=== PATIENT | male | born 1955 | race Caucasian/White ===

== ENCOUNTER 2016-09-20 14:13 | Outpatient (POV) | payer BC, SELFPAY | END 2017-06-07 15:44 | disposition home or self-care (01) | PROVIDERS: Family Provider Internal Medicine Adolescent Medicine; PCP Internal Medicine Adolescent Medicine; Referring Provider Internal Medicine Adolescent Medicine; Visit Provider Nurse Anesthetist, Certified Registered | DX: B02.23 Postherpetic polyneuropathy (principal) | CPT/HCPCS: 99201 ==

== ENCOUNTER → 2018-01-23 14:35 | Outpatient (POV) | payer BC, SELFPAY ==
[2018-01-23 15:01] VITALS: BP 129/78; PULSE 94; RESP 18; O2SAT 98
--- NOTE | 2018-01-24 08:42 | HMH.PMCON ---
Assessment and Plan (1) Degenerative disc disease Current visit: Yes Status: Chronic Category: Medical (2) Lumbar radiculopathy Current visit: Yes Status: Chronic Category: Medical Code(s): M54.16 - Radiculopathy, lumbar region - Assessment and plan all Dx Assessment and Plan for all problems:: We will schedule an L4-L5 lumbar epidural steroid injection. I am hopeful that this will help give him some relief in his symptomology. Patient would like to not undergo surgery at this time. Patient's tried and failed multiple conservative measures of treatment such as physical therapy, massage therapy, medications, anti-inflammatories, chiropractic therapy. Patient is continuing to do home stretching program home. I will follow-up with this patient after his injection. Patient is not on any anticoagulation therapy. This note was dictated using voice recognition software and may contain errors or omissions HPI - Data of Consult Consult date: 01/24/18 Requesting Physician: Latha Neil APRN Primary Care Provider: Gabino Marin MD Family Provider: Gabino Marin MD - Consult Narrative Reason for consult: Back pain, right leg pain History of present illness: Mr. Baez is a 62 year old male who presents today for consultation in regards to his low back and right hip and leg pain. Patient does have an MRI showing spondylosis, degenerative disc disease, bulging disks, ligamentum flavum hypertrophy patient does have neural impingement. Patient states most of his pain is in his low back and right hip and leg. Patient states standing and sitting increases pain while rest and heat decreases his pain. Patient has been seen by Dr. Hermosillo in the past. Patient has not tried injections. Patient's doing chiropractic therapy, physical therapy, massage therapy with little to no relief. Patient is interested in injective therapy at this time. Patient's tried and failed medications and anti-inflammatories. He rates his pain a 6 out of 10 today. CC: Latha Neil APRN [facility] History I have reviewed the patient's past medical history: Yes Medical History: Reports:: Diabetes Mellitus Type 2, Hyperlipidemia Other Medical History: Reports: Arthritis Other Surgeries: Yes: Cardiac Catheterization, Coronary Stent - *Social History Smoking Status: Never smoker Alcohol Intake: never Occupational Status: employed Housing: house - Psychiatric History Expresses thoughts of harming self/others: None Suicide Plan Description: No Plan Review of Systems - Review of Systems ROS General: no recent weight change, no fever, no sleep disturbances Respiratory: no cough, no shortness of air, no recurring pulmonary infections Cardiovascular/Peripheral Vascular: No chest pain, No palpitations, no edema, no shortness of breath. Gastrointestinal: no incontinence, normal bowel movements reported Genitourinary: no incontinence Musculoskeletal: Back pain, right hip pain, right leg pain Psychiatric: normal mood/ affect Neurological: [denies weakness in extremities], [denies balance issues] Meds Allergies Allergy/AdvReac Type Severity Reaction Status Date / Time No Known Allergies Allergy Unverified 07/12/17 14:28 Objective Vital signs: Pulse Resp BP Pulse Ox 94 H 18 129/78 98 01/23/18 15:01 01/23/18 15:01 01/23/18 15:01 01/23/18 15:01 Narrative: Physical Exam General: Alert and oriented x3, no acute distress, pleasant and cooperative, [on room air] Lungs: Resps E/U, Symmetrical chest expansion, Eyes: PERRL Musculoskeletal: Flexion and extension of lumbar spine somewhat guarded secondary to pain, deep tendon reflexes normal, strength in upper and lower extremities [5/5], antalgic gait noted, positive straight leg raise test at 30? on the right side Neurological: speech clear, videotape operator equal, no gross sensory deficits Opioid Risk Tool - Opioid Risk Tool-Male Fa
--- NOTE | 2018-01-24 08:54 | P.CONS_ITS ---
Assessment and Plan (1) Degenerative disc disease Current visit: Yes Status: Chronic Category: Medical (2) Lumbar radiculopathy Current visit: Yes Status: Chronic Category: Medical Code(s): M54.16 - Radiculopathy, lumbar region - Assessment and plan all Dx Assessment and Plan for all problems:: We will schedule an L4-L5 lumbar epidural steroid injection. I am hopeful that this will help give him some relief in his symptomology. Patient would like to not undergo surgery at this time. Patient's tried and failed multiple conservative measures of treatment such as physical therapy, massage therapy, medications, anti-inflammatories, chiropractic therapy. Patient is continuing to do home stretching program home. I will follow-up with this patient after his injection. Patient is not on any anticoagulation therapy. This note was dictated using voice recognition software and may contain errors or omissions HPI - Data of Consult Consult date: 01/24/18 Requesting Physician: Latha Neil APRN Primary Care Provider: Gabino Marin MD Family Provider: Gabino Marin MD - Consult Narrative Reason for consult: Back pain, right leg pain History of present illness: Mr. Baez is a 62 year old male who presents today for consultation in regards to his low back and right hip and leg pain. Patient does have an MRI showing spondylosis, degenerative disc disease, bulging disks, ligamentum flavum hypertrophy patient does have neural impingement. Patient states most of his pain is in his low back and right hip and leg. Patient states standing and sitting increases pain while rest and heat decreases his pain. Patient has been seen by Dr. Hermosillo in the past. Patient has not tried injections. Patient' s doing chiropractic therapy, physical therapy, massage therapy with little to no relief. Patient is interested in injective therapy at this time. Patient's tried and failed medications and anti-inflammatories. He rates his pain a 6 out of 10 today. CC: Latha Neil APRN [facility] History I have reviewed the patient's past medical history: Yes Medical History: Reports:: Diabetes Mellitus Type 2, Hyperlipidemia Other Medical History: Reports: Arthritis Other Surgeries: Yes: Cardiac Catheterization, Coronary Stent - *Social History Smoking Status: Never smoker Alcohol Intake: never Occupational Status: employed Housing: house - Psychiatric History Expresses thoughts of harming self/others: None Suicide Plan Description: No Plan Review of Systems - Review of Systems ROS General: no recent weight change, no fever, no sleep disturbances Respiratory: no cough, no shortness of air, no recurring pulmonary infections Cardiovascular/Peripheral Vascular: No chest pain, No palpitations, no edema, no shortness of breath. Gastrointestinal: no incontinence, normal bowel movements reported Genitourinary: no incontinence Musculoskeletal: Back pain, right hip pain, right leg pain Psychiatric: normal mood/ affect Neurological: [denies weakness in extremities], [denies balance issues] Meds Allergies Allergy/AdvReac Type Severity Reaction Status Date / Time No Known Allergies Allergy Unverified 07/12/17 14:28 Objective Vital signs: Pulse Resp BP Pulse Ox 94 H 18 129/78 98 01/23/18 15:01 01/23/18 15:01 01/23/18 15:01 01/23/18 15:01 Narrative: Physical Exam General: A
== END ==
PROVIDERS: Family Provider Internal Medicine Adolescent Medicine; PCP Internal Medicine Adolescent Medicine; Visit Provider Clinical Nurse Specialist Family Health
DX: M54.16 Radiculopathy, lumbar region (principal)
CPT/HCPCS: 99202

== ENCOUNTER 2020-04-19 19:06 | Emergency (ER) | payer BC, SELFPAY ==
[2020-04-19 19:08] VITALS: BP 159/91; PULSE 99; RESP 16; TEMP 36.8; O2SAT 98; BMI 24.3
--- NOTE | 2020-04-19 19:17 | HMH.EDGENADL ---
ED Disposition Clinical Impression: Palpitations, Tachycardia Disposition: Home, Self-Care Condition on Discharge: Good Instructions: Cardiac Arrhythmia (Alternative Therapy) Additional Instructions: Follow-up with your drill hand. If you have any new, changing, worsening, or concerning symptoms, come back to the emergency department. Referrals: Gabino Marin MD [Primary Care Provider] - Time of Disposition: 20:27 - Critical Care Critical Care Time: No Attestation: On 04/19/20, the high probability of a clinically significant, sudden or life threatening deterioration of the following system(s) required my full and direct attention, intervention and personal management. The time I documented below is in addition to time spent performing reported procedures but includes the following listed in this critical care notation. Medical Decision Making - Medical Records Medical records reviewed: Yes: I reviewed the patient's medical records. MR Comment: 64-year-old male with history of hypertension and prior cardiac stent presents the emergency department with concern for palpitations. He arrives the ED hemodynamically stable, with reassuring vital signs, and looks well on exam will get labs including EKG, treat with fluid bolus and reassess. On reassessment, patient remains well. Asymptomatic after fluid bolus. ECG without concerning features and given patient asymptomatic, will discharge. Given strict return precautions and discharge instrucitons and he verbalizes and agrees to the plan. - [place] Inquiry Pt receiving controlled substance: No Vital Signs: 04/19/20 19:08 04/19/20 19:30 04/19/20 20:11 Temperature 98.3 F Temperature Source Oral Pulse Rate Pulse Rate [Right] 99 H 95 H 91 H Respiratory Rate 16 18 18 Blood Pressure Blood Pressure [Right Arm] 159/91 H 132/87 131/78 Blood Pressure Mean [Right Arm] 113 102 95 Blood Pressure Source Blood Pressure Source [Right Arm] Automatic Cuff Blood Pressure Position Blood Pressure Position [Right Arm] Sitting 02 Sat by Pulse Oximetry 98 96 95 Oxygen Delivery Method Room Air Room Air Room Air 04/19/20 20:37 04/19/20 20:44 Temperature 98.0 F Temperature Source Oral Pulse Rate 89 Pulse Rate [Right] 87 Respiratory Rate 18 14 Blood Pressure 148/89 H Blood Pressure [Right Arm] 148/84 H Blood Pressure Mean [Right Arm] 105 Blood Pressure Source Automatic Cuff Blood Pressure Source [Right Arm] Blood Pressure Position Sitting Blood Pressure Position [Right Arm] 02 Sat by Pulse Oximetry 97 Oxygen Delivery Method Room Air Room Air - Lab Data Lab Results 04/19/20 19:20: WBC 10.4, RBC 5.13, Hgb 15.4, Hct 44.6, MCV 86.9, MCH 30.1, MCHC 34.6, RDW 14.0, Plt Count 518 H, MPV 7.0 L, Neut % (Auto) 67.8, Lymph % (Auto) 24.1, Wilkes % (Auto) 5.9, Eos % (Auto) 1.6, Baso % (Auto) 0.6, Neut # (Auto) 7.0, Lymph # (Auto) 2.5, Wilkes # (Auto) 0.6, Eos # (Auto) 0.2, Baso # (Auto) 0.1 04/19/20 19:20: Sodium 141, Potassium 3.7, Chloride 103, Carbon Dioxide 27, Anion Gap 14.7, BUN 13, Creatinine 1.00, Estimated Creat Clear 86, Estimated GFR 76, Est GFR ( Amer) 92, Glucose 184 H, Calcium 10.2, Total Bilirubin 0.9, AST 32, ALT 25, Alkaline Phosphatase 61, Troponin I < 0.01, Total Protein 7.7, Albumin 4.9, Globulin 2.8, Albumin/Globulin Ratio 1.8 Result diagrams: 04/19/20 19:20 04/19/20 19:20 Orders (Tests/Meds): ED MEDICATIONS Discontinued Medications Generic Name Dose Route Start Last Admin Trade Name Freq PRN Reason Stop Dose Admin Sodium Chloride 1,000 mls @ 999 mls/hr 04/19/20 19:45 04/19/20 19:43 Sod Chlor 0.9% 1000ml Bag IV 04/19/20 20:45 999 mls/hr .Q1H1M BHARATHI Administration General Adult HPI - General Stated complaint: high pulse heart skipping beats Time Seen by Provider: 04/19/20 19:15 - History of Present Illness HPI narrative: 64-year-old male with a history of cardiac stent hypertension presents e
--- NOTE | 2020-04-19 19:22 | XR_ITS ---
PROCEDURE: XR CHEST 2V CLINICAL HISTORY: arrthymia Heart disease COMPARISON: No exams were available for comparison FINDINGS: The cardiomediastinal silhouette and pulmonary vascularity are within normal limits. Minimal left basilar atelectasis. Old granulomatous disease with a calcified granuloma in the lung base posteriorly Bone plate over lower cervical spine IMPRESSION: Minimal left basilar atelectasis or fibrosis otherwise negative Dictated by: Justin Buenrostro MD 04/20/2020 04:14 Justin Buenrostro MD in [place] 04/20/2020 04:14
--- NOTE | 2020-04-19 19:22 | ECG_ITS ---
APPROVED REPORT Exam: Resting ECG HR:97 bpm ECG Measurements Heart Rate 97 AXES NC 208 P 69 QRSd 84 QRS -65 QT 332 T 70 QTc 421 <Conclusion> Sinus rhythm with marked sinus arrhythmia Pulmonary disease pattern RSR' or QR pattern in V1 suggests right ventricular conduction delay Left anterior fascicular block Abnormal ECG Electronically signed by : Gabino Marin, 04/21/2020 15:39:31
[2020-04-19 19:28] LABS: Basophils # 0.1 K/mm3 (0-0.2); Basophils % 0.6 % (0.1-2.0); Eosinophils # 0.2 K/mm3 (0.0-0.4); Eosinophils % 1.6 % (0.1-12.0); Hematocrit 44.6 % (42.0-52.0); Hemoglobin 15.4 g/dL (14.1-18.0); Lymphocytes # 2.5 K/mm3 (0.7-4.5); Lymphocytes % 24.1 % (10-50); Mean Corpuscular HGB Conc 34.6 g/dL (31.8-35.4); Mean Corpuscular Hemoglobin 30.1 pg (27.0-31.2); Mean Corpuscular Volume 86.9 fl (80-94); Monocytes # 0.6 K/mm3 (0.1-1.0); Monocytes % 5.9 % (1.7-9.3); Neutrophils % 67.8 % (37.0-80.0); Platelet Count 518 K/mm3 (142-424); Red Blood Count 5.13 M/mm3 (4.60-6.20); White Blood Count 10.4 K/mm3 (4.8-10.8)
[2020-04-19 19:30] VITALS: BP 132/87; PULSE 95; RESP 18; O2SAT 96
[2020-04-19 19:35] LABS: Alanine Aminotransferase 25 U/L (12-78); Albumin Level 4.9 g/dl (3.5-5.0); Albumin/Globulin Ratio 1.8 (1.1-1.8); Alkaline Phosphatase 61 U/L (38-126); Anion Gap 14.7 mEq/L (5-15); Aspartate Amino Transferase 32 U/L (17-59); Bilirubin,Total 0.9 mg/dl (0.2-1.3); Blood Urea Nitrogen 13 mg/dl (9-20); Calcium 10.2 mg/dl (8.4-10.2); Carbon Dioxide 27 mmol/L (22.0-30.0); Chloride 103 mmol/L (98-107); Creatinine Clearance Estimated 86 mL/min (50-200); Estimated Glomerular Filt Rate 76 ml/min (>60); GFR (African American) 92 ML/MIN (>60); Globulin 2.8 g/dL (1.3-3.2); Glucose 184 mg/dl (74-100); Potassium 3.7 mmoL/L (3.5-5.1); Sodium 141 mmol/L (136-145); Total Protein,Serum 7.7 g/dl (6.3-8.2)
--- NOTE | 2020-04-19 19:45 | PC.NURSE ---
pt to XR
--- NOTE | 2020-04-19 19:51 | PC.NURSE ---
pt back from rad
[2020-04-19 19:52] LABS: Troponin I < 0.01 ng/ml (0.00-0.034)
[2020-04-19 20:11] VITALS: BP 131/78; PULSE 91; RESP 18; O2SAT 95
[2020-04-19 20:37] VITALS: BP 148/84; PULSE 87; RESP 18; O2SAT 97
[2020-04-19 20:44] VITALS: BP 148/89; PULSE 89; RESP 14; TEMP 36.7; O2SAT 98
== END 2020-04-19 20:45 | disposition home or self-care (01) ==
PROVIDERS: Emergency Medicine; Emergency Provider Emergency Medicine; PCP Internal Medicine Adolescent Medicine
DX: R00.2 Palpitations (principal); E11.9 Type 2 diabetes mellitus without complications; E78.5 Hyperlipidemia, unspecified; Z79.899 Other long term (current) drug therapy
CPT/HCPCS: 71046; 80053; 84484; 85025; 93005; 96365; 99284

== ENCOUNTER → 2020-06-12 09:39 | Outpatient (CLI) | payer BC, SELFPAY ==
--- NOTE | 2020-06-12 09:56 | MR_ITS ---
PROCEDURE: MR CERVICAL SPINE WO/W CON CLINICAL INDICATION: CERVICAL NEURALGIA SPINAL FUSION 20 YEARS AGO, BILATERAL ARM PAIN, RIGHT ARM WEAKNESS X2 MONTHS. DECREASED MUSCLE TONE IN RIGHT ARM. COMPARISON: None TECHNIQUE: Standard multiplanar multiecho sequences are performed without and with contrast. 3-D MIP and myelographic images are also rendered and reviewed FINDINGS: Normal alignment. The cranial cervical junction has unremarkable appearance. C2-C3: Unremarkable. C3-C4: Degenerative disc disease with mild retrolisthesis of C3 with endplate osteophytes and bulging disc with small broad-based central disc osteophyte complex resulting in canal stenosis 9 mm. Minimal flattening of the cord at this level. There is bilateral lateral recess and foraminal narrowing left greater than right. C4-C5: Degenerative disc disease with bulging disc and endplate hypertrophic change. This is eccentric toward the left. There is canal stenosis of 10 mm and severe left-sided foraminal narrowing and moderate bilateral lateral recess narrowing left greater than right. Prior anterior cervical disc fusion at C5-C6 and C7 with fusion of the vertebral bodies as well. Prominent artifact is present from the prior surgery. No canal stenosis. C7-T1: Degenerative disc disease with bulging disc No enhancing abnormalities apparent. IMPRESSION: 1. Postsurgical changes C5-C6 and C7 with prior anterior cervical disc fusion. 2. C3-C4: Degenerative disc disease with mild retrolisthesis of C3 with endplate osteophytes and bulging disc with small broad-based central disc osteophyte complex resulting in canal stenosis 9 mm. Minimal flattening of the cord at this level. There is bilateral lateral recess and foraminal narrowing left greater than right. 3. C4-C5: Degenerative disc disease with bulging disc and endplate hypertrophic change. This is eccentric toward the left. There is canal stenosis of 10 mm and severe left-sided foraminal narrowing and moderate bilateral lateral recess narrowing left greater than right. Dictated by: Justin Buenrostro MD 06/13/2020 10:30 Justin Buenrostro MD in [place] 06/13/2020 10:30
[2020-06-12 10:06] LABS: Blood Urea Nitrogen 11 mg/dl (9-20); Estimated Glomerular Filt Rate 86 ml/min (>60); GFR (African American) 103 ML/MIN (>60)
== END ==
PROVIDERS: PCP Internal Medicine Adolescent Medicine; Visit Provider Internal Medicine Adolescent Medicine
DX: M54.12 Radiculopathy, cervical region (principal)
CPT/HCPCS: 36415; 72156; 76376; 82565; 84520; A9576

== ENCOUNTER → 2021-02-04 10:29 | Outpatient (CLI) | payer BC, SELFPAY ==
--- NOTE | 2021-02-04 10:35 | XR_ITS ---
PROCEDURE: XR CHEST 2V CLINICAL HISTORY: WEIGHT LOSS COMPARISON: CR XR CHEST 2V from 04/19/2020 FINDINGS: The cardiomediastinal silhouette and pulmonary vascularity are within normal limits. The lungs are clear without infiltrates, suspicious nodules, or pleural effusions. Sclerotic density overlies the posterior inferior aspect of T8 and may be due to either a bone island in the vertebra or a bony spur. No change granuloma in the lung base posteriorly No acute bony abnormalities. IMPRESSION: No change with no acute findings Dictated by: Justin Buenrostro MD 02/04/2021 11:45 Justin Buenrostro MD in [place] 02/04/2021 11:45
[2021-02-04 11:37] LABS: Basophils # 0.1 K/mm3 (0-0.2); Basophils % 1.1 % (0.1-2.0); Eosinophils # 0.1 K/mm3 (0.0-0.4); Eosinophils % 1.4 % (0.1-12.0); Hematocrit 40.1 % (42.0-52.0); Hemoglobin 13.7 g/dL (14.1-18.0); Lymphocytes # 1.8 K/mm3 (0.7-4.5); Lymphocytes % 28.3 % (10-50); Mean Corpuscular HGB Conc 34.2 g/dL (31.8-35.4); Mean Corpuscular Hemoglobin 29.1 pg (27.0-31.2); Mean Corpuscular Volume 84.8 fl (80-94); Monocytes # 0.4 K/mm3 (0.1-1.0); Monocytes % 5.9 % (1.7-9.3); Neutrophils % 63.2 % (37.0-80.0); Platelet Count 462 K/mm3 (142-424); Red Blood Count 4.73 M/mm3 (4.60-6.20); Red Cell Distribution Width 14.9 % (11.5-17.5); White Blood Count 6.3 K/mm3 (4.8-10.8)
[2021-02-04 12:07] LABS: Alanine Aminotransferase 10 U/L (12-78); Albumin Level 4.6 g/dl (3.5-5.0); Albumin/Globulin Ratio 2.1 (1.1-1.8); Alkaline Phosphatase 40 U/L (38-126); Aspartate Amino Transferase 19 U/L (17-59); Blood Urea Nitrogen 11 mg/dl (9-20); Calcium 9.8 mg/dl (8.4-10.2); Carbon Dioxide 29 mmol/L (22.0-30.0); Chloride 105 mmol/L (98-107); Estimated Glomerular Filt Rate 85 ml/min (>60); GFR (African American) 103 ML/MIN (>60); Globulin 2.2 g/dL (1.3-3.2); Glucose 111 mg/dl (74-100); Sodium 143 mmol/L (136-145); Total Protein,Serum 6.8 g/dl (6.3-8.2)
[2021-02-04 12:25] LABS: Free Thyroxine Index 2.8 ug/dL (5.93-13.13); T4 (Thyroxine) 9.4 ug/dl (5.53-11.0); Triiodothryronine (T3) Uptake 30 % (23.5-40.5)
[2021-02-04 12:26] LABS: 25-OH Vitamin D, Total 98.4 ng/mL (30-100)
[2021-02-04 12:39] LABS: Thyroid Stimulating Hormone 5.84 uIU/mL (0.465-4.68)
[2021-02-04 12:40] LABS: Prostate Specific Ag Screen 0.7 ng/ml (0.0-4.0)
[2021-02-04 12:59] LABS: Vitamin B12 237 pg/mL (239-931)
== END ==
PROVIDERS: PCP Internal Medicine Adolescent Medicine; Visit Provider Internal Medicine Adolescent Medicine
DX: R63.4 Abnormal weight loss (principal); Z12.5 Encounter for screening for malignant neoplasm of prostate; Z79.899 Other long term (current) drug therapy
CPT/HCPCS: 36415; 71046; 80053; 82306; 82607; 84436; 84443; 84479; 85025; G0103

== ENCOUNTER → 2021-02-13 14:16 | Outpatient (CLI) | payer BC, SELFPAY | PROVIDERS: Visit Provider Internal Medicine Gastroenterology | DX: Z01.812 Encounter for preprocedural laboratory examination (principal); Z20.822 Contact with and (suspected) exposure to COVID-19; Z12.11 Encounter for screening for malignant neoplasm of colon | CPT/HCPCS: U0003 ==

== ENCOUNTER 2021-02-16 08:50 | Day surgery (SDC) | payer BC, SELFPAY ==
[2021-02-16] VITALS (7 sets, daily range): BP systolic 109–150; BP diastolic 70–81; PULSE 58–74; RESP 18; TEMP 36.7–37; O2SAT 94–99; BMI 23.1
[2021-02-16 09:24] LABS: POC Glucose,Bedside 106 (70-110)
--- NOTE | 2021-02-16 09:46 | HMH.ANESCL ---
[facility] Anesthesia Checklist - Patient Identification Patient Identification: Arm Band - Structural Data Admitted From: Home Planned Operative Procedure/s: colonoscopy Consent for Planned Operative Procedure(s) Verified: Yes Verified Documents: Surgical Consent, History and Physical - NPO Status Verified Time NPO: 00:00 - Additional verifications Anesthesia Reactions: No - Airway Assessment C-Spine Mobility Assessed: Yes (mp2) TMJ Mobility Assessed: Yes Dentition: Good Dentition - Neurological Assessment Level of Consciousness: Awake, Alert - Anesthesia Plan Anesthesia Risk discussed: Yes Anesthesia Plan: Verified ASA Class: III Anesthesia Type: MAC [facility] History I have reviewed the patient's past medical history: Yes Medical History: Reports:: Coronary Artery Disease, Diabetes Mellitus Type 2, Hyperlipidemia Denies:: Cancer, Diabetes Mellitus Type 1, Internal Pacemaker, MRSA, Seizures *Have you ever received a pneumonia vaccine?: No *Have you received a flu vaccine this season?: Yes Other Medical History: Reports: Arthritis Anesthesia experience/problems:: nac Laterality Cases: Right: Total Hip Replacement, Bilateral: Tonsillectomy Other Surgeries: Yes: Cardiac Catheterization, Cholecystectomy, Colonoscopy, Coronary Stent. No: Pacemaker Amputation: No Fractures: No - *Social History Last grade of school completed: Some college Smoking Status: Never smoker Alcohol Intake: never Substance Use Type: denies use *Occupational Status:: retired Housing: house Household Members: spouse *Travel in the last 8 weeks: None Family Hx:: Coronary Artery Disease
--- NOTE | 2021-02-16 10:15 | P.PCN_ITS ---
[facility] Procedure Note Procedure Note:: Colonoscopy Procedure Report: Colonoscopy with cold snare polypectomy Endoscopist: Fuad Zamora II, MD Referring physician: Gabino Marin M.D. Date of Procedure: February 16, 2021 Equipment: Olympus 190 variable stiffness pediatric colonoscope Sedation: MAC sedation Indication: Mr. Baez is a 65-year-old gentleman who is here for diagnostic colonoscopy secondary to unintentional weight loss of 13 pounds over the last 6 to 8 weeks. The patient does state that he had a spinal fusion (Dr. Junior Kirk at [facility]) in September 2020. The patient reports a good appetite. He does have some early satiety. He reports no rectal bleeding, change in his bowel habits or family history of colon cancer. He has noticed some mucus with his bowel movements and occasional excessive wiping. He reports no tobacco use. He is retired and reports no stress. He has increased his caloric intake without much weight gain. He did have a colonoscopy with Dr. Erlin Loera in May 2016 and had a benign diminutive sigmoid polyp (hyperplastic polyp) removed. The patient's recent lab work showed hemoglobin 13.7 and hematocrit 40.1. His platelet count was slightly elevated at 462,000. The remainder of his chemistries including liver and kidney function were normal. Procedure: Prior to the procedure, a history and physical exam was performed, and patient's medications and allergies were reviewed. The risks, benefits and alternatives of the sedation and procedure were discussed with the patient. All questions were answered and informed consent was obtained. The patient was brought to the procedure room. Patient identification and proposed procedure were verified by the physician and the nurse. The patient was placed in a left lateral decubitus position and the scope was passed under direct vision. Throughout the procedure, the patient's blood pressure, pulse, and oxygen saturations were monitored continuously. The colonoscopy was accomplished without difficulty. The patient tolerated the procedure well. Findings: On digital rectal examination there was normal rectal tone. There were no external hemorrhoids. The prostate was 2-3+, smooth, soft, symmetric without nodules. The colonoscope was introduced through the anal canal to the rectum and advanced to the cecum. The ileocecal valve and appendiceal orifice were identified. The scope was advanced a short distance into the ileum which appeared grossly normal. The scope was then withdrawn into the colon. There was a single cecal polyp (5 mm) which was removed via cold snare polypectomy. The remaining cecum, ascending and transverse colon and mucosa were grossly normal. There were mildly scattered diverticuli throughout the descending and sigmoid colon (LEFT colon). The rectum itself was normal. Upon retroflexion within the rectum there were grade 1-2 internal hemorrhoids. The preparation was excellent throughout with [place] Preparation Score of 9. The cecal time was 12 minutes. Impression: 1. Cecal colon polyp (5 mm) 2. Mild left-sided diverticulosis 3. Grade 1-2 internal hemorrhoids Plan: I did not see any specific etiology for his unintentional weight loss. I would consider imaging of the chest, abdomen and pelvis if this persists. I will follow up the polyp histology and recommend repeat surveillance colonoscopy again in 7 years if the polyp is adenomatous. I would encourage bulk fiber supplementation on a maintenance basis.
== END 2021-02-16 11:39 | disposition home or self-care (01) ==
LOC: OUTP 08:51
PROVIDERS: PCP Internal Medicine Adolescent Medicine; Visit Provider Internal Medicine Gastroenterology
PROC: 0DJD8ZZ Inspection of Lower Intestinal Tract, Via Natural or Artificial Opening Endoscopic (ICD-10-PCS; CPT 45378; principal; 2021-02-16 10:00)
DX: R19.4 Change in bowel habit (principal); K63.5 Polyp of colon; K57.30 Diverticulosis of large intestine without perforation or abscess without bleeding; K64.0 First degree hemorrhoids; Z86.010 Personal history of colon polyps; R63.4 Abnormal weight loss; Z68.23 Body mass index [BMI] 23.0-23.9, adult; R19.5 Other fecal abnormalities; I25.10 Atherosclerotic heart disease of native coronary artery without angina pectoris; E11.9 Type 2 diabetes mellitus without complications; E78.5 Hyperlipidemia, unspecified
CPT/HCPCS: 45385; 82962

== ENCOUNTER → 2021-03-25 09:36 | Outpatient (CLI) | payer BC, SELFPAY | PROVIDERS: Visit Provider Internal Medicine Gastroenterology | DX: Z01.812 Encounter for preprocedural laboratory examination (principal); Z20.822 Contact with and (suspected) exposure to COVID-19; Z13.810 Encounter for screening for upper gastrointestinal disorder | CPT/HCPCS: U0003 ==

== ENCOUNTER 2021-03-27 06:30 | Day surgery (SDC) | payer BC, SELFPAY ==
[2021-03-18 13:01] VITALS: BMI 23.4
[2021-03-27] VITALS (7 sets, daily range): BP systolic 111–137; BP diastolic 69–79; PULSE 63–78; RESP 18–20; TEMP 36.2–36.4; O2SAT 95–99
[2021-03-27 07:05] LABS: POC Glucose,Bedside 112 (70-110)
--- NOTE | 2021-03-27 07:39 | P.PN_ITS ---
[facility] Anesthesia Checklist - Patient Identification Patient Identification: Arm Band - Structural Data Admitted From: Home Planned Operative Procedure/s: EGD Consent for Planned Operative Procedure(s) Verified: Yes - NPO Status Verified Time NPO: 00:00 - Additional verifications Anesthesia Reactions: No - Airway Assessment C-Spine Mobility Assessed: Yes TMJ Mobility Assessed: Yes Dentition: Good Dentition - Neurological Assessment Level of Consciousness: Awake Hx Seizures: No Numbness or tingling in extremities: No - Anesthesia Plan Anesthesia Risk discussed: Yes Anesthesia Plan: Verified ASA Class: III Anesthesia Type: MAC [facility] History I have reviewed the patient's past medical history: Yes Medical History: Reports:: Coronary Artery Disease, Diabetes Mellitus Type 2, Hyperlipidemia Denies:: Cancer, Diabetes Mellitus Type 1, Internal Pacemaker, MRSA, Seizures *Have you ever received a pneumonia vaccine?: Yes *Have you received a flu vaccine this season?: Yes Other Medical History: Reports: Arthritis Anesthesia experience/problems:: None Laterality Cases: Right: Total Hip Replacement, Bilateral: Carpal Tunnel Release, Tonsillectomy Other Surgeries: Yes: Cardiac Catheterization, Cholecystectomy, Colonoscopy, Coronary Stent. No: Pacemaker Amputation: No Fractures: Yes (r ankle, hand) - *Social History Last grade of school completed: High school graduate Smoking Status: Never smoker Alcohol Intake: never Substance Use Type: denies use *Occupational Status:: retired Housing: house Household Members: spouse *Travel in the last 8 weeks: None Family Hx:: Coronary Artery Disease
--- NOTE | 2021-03-27 07:46 | HMH.PROC ---
[facility] Procedure Note Procedure Note:: Upper Endoscopy Procedure Report: Esophagogastroduodenoscopy with cold biopsies and TTS balloon dilation Endoscopost: Fuad Zamora II, MD Referring Physician: Gabino Marin M.D. Date of Procedure: March 27, 2021 Equipment: Olympus GIF 190 standard upper endoscope Sedation: MAC sedation Indications: Mr. Baez is a 65-year-old gentleman who is here for diagnostic upper endoscopy secondary to abnormal weight loss and dysphagia. This did occur after his cervical spinal fusion (C2-C4 with Dr. Junior Kirk in [place]). The patient does report some hoarseness and slightly weaker voice. He reports some choking. He has doubled his calorie intake (6000 wilfrido daily) and is just maintaining weight. He reports no abdominal pain, bloating, belching, heartburn or reflux. He reports no diarrhea or fever. He did have a colonoscopy with me on February 16, 2021 that showed a single cecal polyp (tubular adenoma) and mild left-sided diverticulosis. Procedure: Prior to the procedure, a history and physical exam was performed, and patient's medications and allergies were reviewed. The risks, benefits and alternatives of the sedation and procedure were discussed with the patient. All questions were answered and informed consent was obtained. The patient was brought to the procedure room. Patient identification and proposed procedure were verified by the physician and the nurse. The patient was placed in a left lateral decubitus position and the scope was passed under direct vision. Throughout the procedure, the patient's blood pressure, pulse, and oxygen saturations were monitored continuously. The upper GI endoscopy was accomplished without difficulty. The patient tolerated the procedure well. Findings: The scope was passed directly into the upper esophagus and advanced to the third portion of the duodenum. The post bulbar duodenum and duodenal bulb were normal with normal mucosa and conniventes. The scope was withdrawn through a normal duodenal bulb and pylorus into the stomach. There was very minimal reactive gastropathy of the antrum. The remainder of the antrum, body and fundus of the stomach were grossly normal. Upon retroflexion there was no hiatal hernia. 2 biopsies were taken in the antrum and along the lesser curvature for histology to rule out gastritis and/or H pylori. The scope was then withdrawn into the esophagus. There was no evidence of reflux esophagitis or Tinoco's. There was no Schatzki's ring. There was no corrugation, furling or strictures. There was evidence of tertiary contractions and mild esophageal dysmotility. The entire esophagus was dilated to 60 [place]/20 mm with a TTS hydrostatic balloon. There was some resistance at the cricopharyngeus (i.e. cricopharyngeal spasm). The remainder of the esophageal mucosa was normal. Impression: 1. Cricopharyngeal spasm status post dilation to 20 mm 2. Mild esophageal dysmotility Plan: I will follow-up the biopsies. There was no clear etiology of his unintentional weight loss. Dysphagia is a very common complication of anterior surgery of the cervical spine with an incidence as high as 70%. Most of this does resolve with an the first couple of weeks but up to 15% may have persistent dysphagia 1 year after the surgery. The etiology is unclear and probably multifactorial. This is likely to be related to some esophageal retraction, prominence of the cervical plate and some prevertebral swelling.
== END 2021-03-27 08:48 | disposition home or self-care (01) ==
LOC: OUTP 06:32
PROVIDERS: PCP Internal Medicine Adolescent Medicine; Visit Provider Internal Medicine Gastroenterology
PROC: 0DJ08ZZ Inspection of Upper Intestinal Tract, Via Natural or Artificial Opening Endoscopic (ICD-10-PCS; CPT 43235; principal; 2021-03-27 07:30)
DX: K22.4 Dyskinesia of esophagus (principal); Z86.010 Personal history of colon polyps; J39.2 Other diseases of pharynx; Z87.19 Personal history of other diseases of the digestive system; I25.10 Atherosclerotic heart disease of native coronary artery without angina pectoris; E11.9 Type 2 diabetes mellitus without complications; E78.5 Hyperlipidemia, unspecified; M19.90 Unspecified osteoarthritis, unspecified site; Z79.82 Long term (current) use of aspirin; Z79.899 Other long term (current) drug therapy
CPT/HCPCS: 43239; 43249; 82962; C1726; J2704

== ENCOUNTER 2021-08-17 17:10 | Emergency (ER) | payer BC, SELFPAY ==
--- NOTE | 2021-08-17 17:03 | ECG_ITS ---
APPROVED REPORT Exam: Resting ECG HR:75 bpm ECG Measurements Heart Rate 75 AXES OR 203 P 49 QRSd 91 QRS -51 QT 390 T 73 QTc 418 Conclusion SINUS RHYTHM INCOMPLETE RIGHT BUNDLE BRANCH BLOCK [90+ ms QRS DURATION, TERMINAL R IN V1/V2, 40+ ms S IN I/aVL/V4/V5/V6] LEFT ANTERIOR FASCICULAR BLOCK [QRS AXIS <= -45, QR IN I, RS IN II] NONSPECIFIC T-WAVE ABNORMALITY ABNORMAL ECG UNCONFIRMED REPORT Electronically signed by : Gabino Marin MD 08/24/2021 17:37:25
[2021-08-17 17:10] VITALS: BP 181/88; PULSE 70; RESP 16; TEMP 37.2; O2SAT 100; BMI 23.7
--- NOTE | 2021-08-17 17:13 | XR_ITS ---
PROCEDURE INFORMATION: Exam: XR Chest Exam date and time: 08/17/2021 5:13 PM Age: 65 years old Clinical indication: Shortness of breath; Prior surgery; Surgery type: Stents; Additional info: SOA TECHNIQUE: Imaging protocol: XR of the chest. Views: 1 view. COMPARISON: CR XR CHEST 2V 02/04/2021 10:36 AM FINDINGS: Lungs: Unremarkable. No consolidation. Pleural spaces: Unremarkable. No pleural effusion. No pneumothorax. Heart/Mediastinum: Unremarkable. No cardiomegaly. Bones/joints: Unremarkable. IMPRESSION: No acute findings.
--- NOTE | 2021-08-17 17:14 | HMH.EDGENADL ---
ED Disposition Clinical Impression: Weakness, Vertigo, Elevated blood pressure reading Disposition: Home, Self-Care Condition on Discharge: Good Instructions: Vertigo, Treatments for High Blood Pressure: More Than Just Taking a Pill Additional Instructions: follow up pcp, return for worse Referrals: Gabino Marin MD [Primary Care Provider] - - Critical Care Critical Care Time: No Attestation: On , the high probability of a clinically significant, sudden or life threatening deterioration of the following system(s) required my full and direct attention, intervention and personal management. The time I documented below is in addition to time spent performing reported procedures but includes the following listed in this critical care notation. Medical Decision Making - Sherman Inquiry Pt receiving controlled substance: No Vital Signs: 08/17/21 17:10 08/17/21 17:45 08/17/21 18:20 Temperature 98.9 F Temperature Source Oral Pulse Rate 70 70 Pulse Rate [Right] 70 Respiratory Rate 16 16 16 Blood Pressure 167/96 H 154/51 H Blood Pressure [Right Arm] 181/88 H Blood Pressure Mean [Right Arm] 119 Blood Pressure Source [Right Arm] Automatic Cuff Blood Pressure Position [Right Arm] Sitting 02 Sat by Pulse Oximetry 100 98 98 Oxygen Delivery Method Room Air 08/17/21 18:50 Temperature Temperature Source Pulse Rate 71 Pulse Rate [Right] Respiratory Rate 16 Blood Pressure 154/88 H Blood Pressure [Right Arm] Blood Pressure Mean [Right Arm] Blood Pressure Source [Right Arm] Blood Pressure Position [Right Arm] 02 Sat by Pulse Oximetry 97 Oxygen Delivery Method - Lab Data Lab Results 08/17/21 17:10: WBC 6.8, RBC 4.52 L, Hgb 13.4 L, Hct 42.0, MCV 93.0, MCH 29.7, MCHC 31.9, RDW 14.3, Plt Count 486 H, MPV 7.0 L, Neut % (Auto) 52.2, Lymph % (Auto) 38.6, Cowley % (Auto) 6.2, Eos % (Auto) 1.6, Baso % (Auto) 1.4, Neut # (Auto) 3.6, Lymph # (Auto) 2.6, Cowley # (Auto) 0.4, Eos # (Auto) 0.1, Baso # (Auto) 0.1 08/17/21 17:10: Sodium 138, Potassium 3.5, Chloride 103, Carbon Dioxide 27, Anion Gap 11.5, BUN 15, Creatinine 0.80, Estimated Creat Clear 82, Estimated GFR 98, Est GFR ( Amer) 118, Glucose 127 H, Calcium 9.7, Total Bilirubin 0.5, AST 31, ALT 19, Alkaline Phosphatase 40, Troponin I < 0.01, Total Protein 7.4, Albumin 4.8, Globulin 2.6, Albumin/Globulin Ratio 1.8 08/17/21 17:10: SARS-CoV-2 (PCR) Not detected, Influenza A Untype (PCR) Not detected, Influenza Type B (PCR) Not detected 08/17/21 19:00: Troponin I < 0.01 Result diagrams: 08/17/21 17:10 08/17/21 17:10 Orders (Tests/Meds): ORDERS Category Date Time Status Troponin I Q3H Lab 08/17/21 23:15 Ordered EKG Request [ECG Request by /Ferny] Stat Y 08/17/21 17:13 Ordered - ECG Data Tracing #1 ekg by md nsr, irbbb, no st elev Medical Decision Narrative: reeval, vss, appears well, ok with plan to f/u pcp General Adult HPI - General Stated complaint: dizziness;not feeling well Time Seen by Provider: 08/17/21 17:14 Mode of Arrival: Ambulatory Source of Information: Patient Limitations: No Limitations - History of Present Illness HPI narrative: 1 hr [employer] sudden onset soa and cough Radiation: non-radiation Severity: moderate Consistency: constant Relieving factors: none Exacerbating factors: none Associated symptoms: denies other symptoms - Related Data Home Medications Medication Instructions Recorded Confirmed Aspirin [Aspir 81] 81 mg PO DAILY 02/03/18 03/27/21 Atorvastatin Calcium [Atorvastatin 10 mg PO DAILY 02/03/18 03/27/21 10mg Tab] Ergocalciferol (Vitamin D2) 50,000 unit PO WEEKLY 02/03/18 03/27/21 [Vitamin D2] Sitagliptin Phos/Metformin HCl 1 each PO DAILY 02/03/18 03/27/21 [Janumet Xr 100-1,000 mg Tablet] Allergies Allergy/AdvReac Type Severity Reaction Status Date / Time No Known Allergies Allergy Verified 03/27/21 06:44 [facility] History - Hepatitis A Screen Att
[2021-08-17 17:29] LABS: Basophils # 0.1 K/mm3 (0-0.2); Basophils % 1.4 % (0.1-2.0); Chloride 103 mmol/L (98-107); Eosinophils # 0.1 K/mm3 (0.0-0.4); Eosinophils % 1.6 % (0.1-12.0); Hemoglobin 13.4 g/dL (14.1-18.0); Lymphocytes # 2.6 K/mm3 (0.7-4.5); Lymphocytes % 38.6 % (10-50); Mean Corpuscular HGB Conc 31.9 g/dL (31.8-35.4); Mean Corpuscular Hemoglobin 29.7 pg (27.0-31.2); Monocytes # 0.4 K/mm3 (0.1-1.0); Monocytes % 6.2 % (1.7-9.3); Neutrophils # 3.6 K/mm3 (1.8-7.8); Neutrophils % 52.2 % (37.0-80.0); Platelet Count 486 K/mm3 (142-424); Red Blood Count 4.52 M/mm3 (4.60-6.20); Red Cell Distribution Width 14.3 % (11.5-17.5); Sodium 138 mmol/L (136-145); White Blood Count 6.8 K/mm3 (4.8-10.8)
[2021-08-17 17:30] LABS: Potassium 3.5 mmoL/L (3.5-5.1)
[2021-08-17 17:32] LABS: Alanine Aminotransferase 19 U/L (12-78); Albumin Level 4.8 g/dl (3.5-5.0); Albumin/Globulin Ratio 1.8 (1.1-1.8); Alkaline Phosphatase 40 U/L (38-126); Aspartate Amino Transferase 31 U/L (17-59); Bilirubin,Total 0.5 mg/dl (0.2-1.3); Blood Urea Nitrogen 15 mg/dl (9-20); Carbon Dioxide 27 mmol/L (22.0-30.0); Creatinine Clearance Estimated 82 mL/min (50-200); Estimated Glomerular Filt Rate 98 ml/min (>60); GFR (African American) 118 ML/MIN (>60); Globulin 2.6 g/dL (1.3-3.2); Total Protein,Serum 7.4 g/dl (6.3-8.2)
[2021-08-17 17:33] LABS: Anion Gap 11.5 mEq/L (5-15); Calcium 9.7 mg/dl (8.4-10.2); Glucose 127 mg/dl (74-100)
[2021-08-17 17:43] LABS: Coronavirus 19, PCR Not Detected (NotDetected); Influenza A, PCR Not Detected (NotDetected); Influenza B, PCR Not Detected (NotDetected)
[2021-08-17 17:45] VITALS: BP 167/96; PULSE 70; RESP 16; O2SAT 98
[2021-08-17 17:46] LABS: Troponin I < 0.01 ng/ml (0.00-0.034)
[2021-08-17 18:20] VITALS: BP 154/51; PULSE 70; RESP 16; O2SAT 98
[2021-08-17 18:50] VITALS: BP 154/88; PULSE 71; RESP 16; O2SAT 97
--- NOTE | 2021-08-17 18:55 | PC.NURSE ---
LAB CALLED FOR 2 HR TROP
[2021-08-17 19:35] LABS: Troponin I < 0.01 ng/ml (0.00-0.034)
[2021-08-17 19:54] VITALS: BP 161/89; PULSE 71; RESP 14; TEMP 36.6; O2SAT 97
== END 2021-08-17 20:00 | disposition home or self-care (01) ==
PROVIDERS: Emergency Provider Emergency Medicine; PCP Internal Medicine Adolescent Medicine
DX: R42 Dizziness and giddiness (principal); R03.0 Elevated blood-pressure reading, without diagnosis of hypertension; Z20.822 Contact with and (suspected) exposure to COVID-19
CPT/HCPCS: 71045; 80053; 84484; 85025; 93005; 99283; C9803; U0003; U0005

== ENCOUNTER → 2021-08-19 11:16 | Outpatient (CLI) | payer BC, SELFPAY | PROVIDERS: PCP Internal Medicine Adolescent Medicine; Visit Provider Internal Medicine Adolescent Medicine | DX: I49.3 Ventricular premature depolarization (principal) | CPT/HCPCS: 93270 ==

== ENCOUNTER → 2022-09-08 07:22 | Outpatient (CLI) | payer MEDICARE, SELFPAY ==
--- NOTE | 2022-09-08 07:30 | XR_ITS ---
FINAL REPORT CLINICAL HISTORY: RT HAND PAIN FINDINGS: AP, lateral and oblique views of the right hand were obtained. There is no prior exam for comparison. There is no acute fracture or dislocation. There are small calcifications along the dorsal aspect of the the DIP and PIP joints of the 3rd finger, favor chronic. There is mild multi joint degenerative disease. The soft tissues are normal. IMPRESSION: Mild multi joint degenerative disease with no acute osseous abnormality of the right hand. Reviewed, Interpreted and Dictated by Lora Rene MD Transcribed by Irene Stephenson Authenticated and [facility]
== END ==
PROVIDERS: PCP Nurse Practitioner Family; Visit Provider Nurse Practitioner Family
DX: M79.641 Pain in right hand (principal)
CPT/HCPCS: 73130

== ENCOUNTER 2023-04-16 11:06 | Emergency (ER) | payer MEDICARE, SELFPAY ==
[2023-04-16 11:10] VITALS: BP 157/94; PULSE 81; RESP 18; O2SAT 99; BMI 24.3
--- NOTE | 2023-04-16 11:32 | EXP.UTC ---
Discharge Plan Disposition Patient Disposition: Home, Self-Care Condition: Good Prescriptions Prescriptions: New cyclobenzaprine 10 mg Tablet 10 mg PO TID PRN (Reason: Muscle Spasm) Qty: 30 0RF methylprednisolone 4 mg Tablets,Dose Pack 4 mg PO DIRECTED Qty: 21 0RF No Action atorvastatin 10 MG tablet 10 mg PO DAILY aspirin 81 MG tablet,delayed release (DR/EC) 81 mg PO DAILY ergocalciferol (vitamin D2) 50,000 UNIT capsule 50,000 unit PO WEEKLY Rx Instructions: TWICE A WEEK sitagliptin phos-metformin 1 EACH tablet, ER multiphase 24 hr 1 each PO DAILY Referrals Follow up/Referrals: Gabino Marin MD [Primary Care Provider] - See instructions Activity Restrictions/Add. Instructions Additional Instructions/Restrictions: Go home and rest. It would be best if you rested for the next few days. No heavy lifting and no twisting for the next few days. Take the medications as directed. The muscle relaxer (cyclobenzaprine--Flexeril) will make you drowsy, so don't drive or operate heavy machinery after taking it. Don't start the oral steroids (medrol dose pack) until tomorrow, since you had the shot in here today. Follow up with your regular doctor. GO TO THE ER FOR ANY WORSENING SYMPTOMS OR CONCERN, ESPECIALLY BOWEL OR BLADDER ISSUES, SADDLE AREA NUMBNESS, FEVER, ETC Clinical Impressions Clinical Impression: Acute low back pain with sciatica Instructions Patient Instructions: Sciatica, Low Back Pain, DI for Sciatica Discharge ED Provider: Jn Naylor [facility] [place] HPI General Stated complaint: lower back, RT leg pain Mode of Arrival: Ambulatory Source of Information: Patient Limitations: No Limitations Time Seen by Provider: 04/16/23 11:30 Description of Symptoms (Recalled from Triage Doc. by RN): right sciatic pain HEENT Symptoms (Recalled from RN notes): No Resp Symptoms (Recalled from RN notes): No Skin Symptoms (Recalled from RN notes): No MS Symptoms (Recalled from RN notes): Yes Functional Status (Recalled from RN notes): n/a History of Present Illness Provider Complaint: He states that (since yesterday) he has had low back pain that radiates down his right leg. He denies any falls or recent trauma. He denies any bowel or bladder issues. He denies any saddle area numbness. Related Data Home Medications Medication Instructions Recorded Confirmed aspirin 81 mg tablet,delayed 81 mg PO DAILY heart health 02/03/18 03/27/21 release atorvastatin 10 mg tablet 10 mg PO DAILY Cholesterol 02/03/18 03/27/21 ergocalciferol (vitamin D2) 1,250 50,000 unit PO WEEKLY Supplement 02/03/18 03/27/21 mcg (50,000 unit) capsule sitagliptin phos 100 mg-metformin 1 each PO DAILY Diabetes 02/03/18 03/27/21 ER 1,000 mg tablet,extend rel 24h mp Previous Rx's Medication Instructions Recorded cyclobenzaprine 10 mg tablet 10 mg PO TID PRN Muscle Spasm #30 04/16/23 tabs methylprednisolone 4 mg tablets in 4 mg PO DIRECTED #21 tabs 04/16/23 a dose pack Allergies Allergy/AdvReac Type Severity Reaction Status Date / Time No Known Allergies Allergy Verified 04/16/23 11:12 Worker's Comp Is this a Worker's Comp case?: No [facility] Dis[facility]: The information contained in this section may have been updated after the patient was seen, as this information can be updated by other users. Social History Smoking Status: Never smoker alcohol intake: never substance use type: denies use current occupational status: retired Travel in the last 8 weeks: None household members: spouse housing: house caffeine: No ROS Obtained: Yes All systems reviewed & no additional complaints except as documented Constitutional Constitutional: Denies chills and Denies fever(s) Eyes Eyes: Denies eye discharge ENT Ears, Nose, Mouth, and Throat: Denies dizziness, Denies otalgia and Denies sore throat Car
[2023-04-16 11:39] VITALS: BP 157/94; PULSE 81; RESP 19; TEMP 36.8; O2SAT 99
== END 2023-04-16 11:39 | disposition home or self-care (01) ==
PROVIDERS: Emergency Provider Nurse Practitioner Family; PCP Internal Medicine Adolescent Medicine
DX: M54.41 Lumbago with sciatica, right side (principal)
CPT/HCPCS: 96372; 99204; 99212; G0463

== ENCOUNTER → 2023-06-07 09:07 | Outpatient (CLI) | payer MEDICARE, SELFPAY ==
--- NOTE | 2023-06-07 09:13 | CT_ITS ---
FINAL REPORT TECHNIQUE: Postcontrast axial images through the abdomen and pelvis were performed. This study was performed with techniques to keep radiation doses as low as reasonably achievable, (ALARA). Individualized dose reduction techniques using automated exposure control or adjustment of mA and/or kV according to the patient's size were employed. CLINICAL HISTORY: HYPERCALCEMIA FINDINGS: Abdomen: The liver demonstrates mild fatty infiltration. The gallbladder is surgically absent. The spleen is unremarkable. The adrenals are normal. The pancreas is unremarkable. There are benign-appearing cysts in both kidneys. Largest cyst measures up to 2.1 cm. The aorta is normal in caliber. No free fluid or adenopathy is identified. No findings for mechanical bowel obstruction are identified. Pelvis: The appendix is normal. There are scattered diverticula throughout the sigmoid colon. There is streak artifact from right hip prosthesis. The urinary bladder is unremarkable. No free fluid, free air, abscess or adenopathy is identified. There are diffuse changes of degenerative disc disease throughout the lumbar spine. IMPRESSION: No acute process identified. Reviewed, Interpreted and Dictated by Flavio Cornejo MD Transcribed by Giancarlo Gilmore Authenticated and [facility]
--- NOTE | 2023-06-07 09:13 | CT_ITS ---
FINAL REPORT TECHNIQUE: Axial CT images were performed through the head. Coronal reformatted images were submitted. This study was performed with techniques to keep radiation doses as low as reasonably achievable (ALARA). Individualized dose reduction techniques using automated exposure control or adjustment of mA and/or kV according to the patient's size were employed. CLINICAL HISTORY: HYPERCALCEMIA FINDINGS: The ventricles are normal in size. There is no evidence of hemorrhage. There is no mass or edema identified. There is no abnormal extra-axial fluid seen. There is a retention cyst or polyp in the right maxillary sinus. IMPRESSION: No acute intracranial process. Reviewed, Interpreted and Dictated by Flavio Cornejo MD Transcribed by Giancarlo Gilmore Authenticated and . [facility]
--- NOTE | 2023-06-07 09:13 | CT_ITS ---
FINAL REPORT CLINICAL HISTORY: HYPERCALCEMIA FINDINGS: Thin section axial CT images with coronal and sagittal reformats were performed through the neck before and after the administration of IV contrast. This study was performed with techniques to keep radiation doses as low as reasonably achievable (ALARA). Individualized dose reduction techniques using automated exposure control or adjustment of mA and/or kV according to the patient's size were employed. No adenopathy or mass lesion is present . Salivary glands are normal. Larynx is unremarkable. The right lobe of the thyroid is asymmetrically larger than the left. There is no abnormal contrast enhancement. IMPRESSION: No mass or adenopathy. Reviewed, Interpreted and Dictated by Flavio Cornejo MD Transcribed by Giancarlo Gilmore Authenticated and [facility]
--- NOTE | 2023-06-07 09:13 | CT_ITS ---
FINAL REPORT CLINICAL HISTORY: HYPERCALCEMIA FINDINGS: Axial images were obtained from the lung apex to the mid abdomen by computed tomography after the administration of IV contrast. Coronal reformatted images were obtained. This study was performed with techniques to keep radiation doses as low as reasonably achievable, (ALARA). Individualized dose reduction techniques using automated exposure control or adjustment of mA and/or kV according to the patient's size were employed. There is no axillary adenopathy. There is no hilar or mediastinal adenopathy. Heart size is normal. There is no pericardial or pleural effusion. There is a calcified granuloma in the left lung base. No suspicious infiltrate or nodule is identified. IMPRESSION: No mass or adenopathy. Reviewed, Interpreted and Dictated by Flavio Cornejo MD Transcribed by Giancarlo Gilmore Authenticated and [facility]
== END ==
PROVIDERS: PCP Internal Medicine Adolescent Medicine; Visit Provider Internal Medicine Adolescent Medicine
DX: E83.52 Hypercalcemia (principal)
CPT/HCPCS: 70450; 70492; 71260; 74177; Q9967

== ENCOUNTER 2023-08-29 11:38 | Emergency (ER) | payer MEDICARE, SELFPAY ==
[2023-08-29 11:40] VITALS: BP 162/104; PULSE 81; RESP 16; TEMP 36.7; O2SAT 97; BMI 24.3
--- NOTE | 2023-08-29 11:49 | ECG_ITS ---
APPROVED REPORT Exam: Resting ECG HR:73 bpm ECG Measurements Heart Rate 73 AXES WV 229 P 47 QRSd 70 QRS -44 QT 346 T 54 QTc 371 Conclusion SINUS RHYTHM WITH FIRST DEGREE AV BLOCK LEFT AXIS DEVIATION [QRS AXIS < -30] NONSPECIFIC T-WAVE ABNORMALITY ABNORMAL ECG UNCONFIRMED REPORT Electronically signed by : Gabino Marin MD 08/31/2023 21:48:29
--- NOTE | 2023-08-29 11:57 | XR_ITS ---
FINAL REPORT CLINICAL HISTORY: Precordial chest pain COMPARISON: 08/17/2021 FINDINGS: Two views of the chest were obtained. The heart size and pulmonary vascularity are within normal limits. The mediastinum is normal. No acute pulmonary abnormality is identified. There is no pneumothorax. The bony thorax is intact. IMPRESSION: No active cardiopulmonary disease. Reviewed, Interpreted and Dictated by Willi Dias III, MD Transcribed by Susan Antunez Authenticated and [facility]
[2023-08-29 12:00] VITALS: BP 154/93; PULSE 72; RESP 18; O2SAT 98
[2023-08-29 12:04] LABS: Basophils # 0.1 K/mm3 (0-0.2); Eosinophils # 0.1 K/mm3 (0.0-0.4); Eosinophils % 1.9 % (0.1-12.0); Hematocrit 46.4 % (42.0-52.0); Hemoglobin 15.4 g/dL (14.1-18.0); Lymphocytes # 2.1 K/mm3 (0.7-4.5); Lymphocytes % 29.4 % (10-50); Mean Corpuscular HGB Conc 33.2 g/dL (31.8-35.4); Mean Corpuscular Hemoglobin 29.4 pg (27.0-31.2); Mean Corpuscular Volume 88.5 fl (80-94); Monocytes # 0.4 K/mm3 (0.1-1.0); Monocytes % 5.8 % (1.7-9.3); Neutrophils # 4.3 K/mm3 (1.8-7.8); Neutrophils % 61.9 % (37.0-80.0); Platelet Count 469 K/mm3 (142-424); Red Blood Count 5.25 M/mm3 (4.60-6.20); Red Cell Distribution Width 15.2 % (11.5-17.5)
[2023-08-29 12:09] LABS: Chloride 104 mmol/L (98-107)
[2023-08-29 12:10] LABS: Potassium 4.4 mmoL/L (3.5-5.1); Sodium 139 mmol/L (136-145)
[2023-08-29 12:12] LABS: Alanine Aminotransferase 27 U/L (12-78); Aspartate Amino Transferase 30 U/L (17-59); Bilirubin,Total 1.1 mg/dl (0.2-1.3); Blood Urea Nitrogen 10 mg/dl (9-20); Creatinine Clearance Estimated 80 mL/min (50-200); Estimated Glomerular Filt Rate 97 ml/min (>60); GFR (African American) 117 ML/MIN (>60)
[2023-08-29 12:13] LABS: Albumin Level 4.7 g/dl (3.5-5.0); Albumin/Globulin Ratio 1.7 (1.1-1.8); Alkaline Phosphatase 51 U/L (38-126); Anion Gap 11.4 mEq/L (5-15); Calcium 9.5 mg/dl (8.4-10.2); Carbon Dioxide 28 mmol/L (22.0-30.0); Globulin 2.7 g/dL (1.3-3.2); Glucose 151 mg/dl (74-100); Total Protein,Serum 7.4 g/dl (6.3-8.2)
[2023-08-29] MEDS: ASPIRIN 81MG CHEWABLE TABLET 324 MG PO (12:13)
[2023-08-29 12:28] LABS: Troponin I < 0.01 ng/ml (0.00-0.034)
--- NOTE | 2023-08-29 12:35 | HMH.EDGENADL ---
Discharge Plan Disposition Patient Disposition: Home, Self-Care Condition: Good Prescriptions Prescriptions: No Action cyclobenzaprine 10 mg Tablet 10 mg PO TID PRN (Reason: Muscle Spasm) Qty: 30 0RF methylprednisolone 4 mg Tablets,Dose Pack 4 mg PO DIRECTED Qty: 21 0RF atorvastatin 10 MG tablet 10 mg PO DAILY aspirin 81 MG tablet,delayed release (DR/EC) 81 mg PO DAILY ergocalciferol (vitamin D2) 50,000 UNIT capsule 50,000 unit PO WEEKLY Rx Instructions: TWICE A WEEK sitagliptin phos-metformin 1 EACH tablet, ER multiphase 24 hr 1 each PO DAILY Referrals Follow up/Referrals: Junior Dacosta MD [Staff Physician] - See instructions Gabino Marin MD [Primary Care Provider] - See instructions Tang Reyes MD [Staff Physician] - See instructions Activity Restrictions/Add. Instructions Additional Instructions/Restrictions: You were evaluated in the emergency department today. Please follow-up closely with cardiology. We have provided you with information. You will need to call and schedule an appointment with them. Return to the emergency department for new or worsening symptoms. Clinical Impressions Clinical Impression: Atypical chest pain Instructions Patient Instructions: DI for Atypical Chest Pain Discharge ED Provider: Airam Rehman General Adult HPI General Chief complaint: PAIN Stated complaint: argelia sent over for angina Time Seen by Provider: 08/29/23 11:53 Mode of Arrival: Ambulatory Source of Information: Patient Limitations: No Limitations Description of Symptoms (Recalled from ER Triage Doc. by RN): Patient was seen in Dr. Marin's office this am for intermitted left and righ bicep pain and pain in his left jaw for 2-3 months. Presented today stating the pain was worse last night and that he was unable to go back to sleep. History of Present Illness HPI narrative: This patient is a 67-year-old male with a history of CAD presenting to the emergency department for evaluation with concern for left arm pain, left jaw pain, and nausea. 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 He did not think much of this until he woke up from sleep last night with bad arm pain, jaw pain, and nausea. Given his heart history, he became concerned and thought he should go get checked out. He went to Dr. Marin's office today who was concerned that this could be cardiac in nature. I had an direct discussion with Dr. Marin who sent the patient over today. He denies any true chest pain, shortness of breath, or other concerns. He states he was having nausea earlier this morning, but he is not nauseated at this time. Related Data Home Medications Medication Instructions Recorded Confirmed aspirin 81 mg tablet,delayed 81 mg PO DAILY heart health 02/03/18 03/27/21 release atorvastatin 10 mg tablet 10 mg PO DAILY Cholesterol 02/03/18 03/27/21 ergocalciferol (vitamin D2) 1,250 50,000 unit PO WEEKLY Supplement 02/03/18 03/27/21 mcg (50,000 unit) capsule sitagliptin phos 100 mg-metformin 1 each PO DAILY Diabetes 02/03/18 03/27/21 ER 1,000 mg tablet,extend rel 24h mp Previous Rx's Medication Instructions Recorded cyclobenzaprine 10 mg tablet 10 mg PO TID PRN Muscle Spasm #30 04/16/23 tabs methylprednisolone 4 mg tablets in 4 mg PO DIRECTED #21 tabs 04/16/23 a dose pack Allergies Allergy/AdvReac Type Severity Reaction Status Date / Time No Known Allergies Allergy Verified 04/16/23 11:12 [facility] Disclaimer: The information contained in this section may have been updated after the patient was seen, as this information can be updated by other users. Social History Smoking Status: Never smoker alcohol intake: never substance use type: denies use current occupational status: retired Travel in the last 8 weeks: None household members: spouse housing: house caffeine: No ROS Obtained: Yes All systems reviewed & no additional complaints except as documented Physical Exam General General appearance: alert and in no apparent distress Head Head exam: atraumatic and normocephalic Eye Eye exam: Present normal appearance, PERRL and EOMI ENT ENT exam: Present normal exam, normal oropharynx, mucous membranes moist and normal external ear exam Neck Neck exam: Present normal inspection, full ROM and trachea midline; Absent tenderness Chest Chest inspection: Present normal inspection and symmetric chest wall rise; Absent tenderness Respiratory Respiratory exam: Present normal lung sounds bilaterally; Absent respiratory distress, wheezes, stridor or accessory muscle use Cardiovascular Cardiovascular exam: Present regular rate and normal rhythm Abdominal Exam Abdominal exam: Present soft; Absent distention, tenderness or guarding Extremities Exam Extremities exam: Present normal inspection, full ROM and normal capillary refill; Absent tenderness or edema Back Exam Back exam: Present normal inspection and full ROM; Absent tenderness Neurological Exam Neurological exam: Present alert, oriented X3, CN II-XII intact and normal gait; Absent motor sensory deficit Psychiatric Psychiatric exam: Present normal affect and normal mood Skin Skin exam: Present warm and dry Medical Decision Making Medical Records Medical records reviewed: Yes I reviewed the patient's medical records. [place] Inquiry Pt receiving controlled substance: No Vital Signs: 08/29/23 11:40 08/29/23 12:00 08/29/23 13:42 Temperature 98.0 F 98.0 F Temperature Source Oral Pulse Rate 72 71 Pulse Rate [Radial] 81 Respiratory Rate 16 18 12 Blood Pressure 154/93 H 142/85 H Blood Pressure [Right Arm] 162/104 H Blood Pressure Mean 113 Blood Pressure Mean [Right Arm] 123 Blood Pressure Source [Right Arm] Automatic Cuff Blood Pressure Position [Right Arm] Sitting 02 Sat by Pulse Oximetry 97 98 Oxygen Delivery Method Room Air Room Air Lab Data Lab results reviewed: Yes I reviewed the patient's lab results. Lab Results 08/29/23 11:55: WBC 7.0, RBC 5.25, Hgb 15.4, Hct 46.4, MCV 88.5, MCH 29.4, MCHC 33.2, RDW 15.2, Plt Count 469 H, MPV 7.0 L, Neut % (Auto) 61.9, Lymph % (Auto) 29.4, [place] % (Auto) 5.8, Eos % (Auto) 1.9, Baso % (Auto) 1.0, Neut # (Auto) 4.3, Lymph # (Auto) 2.1, [place] # (Auto) 0.4, Eos # (Auto) 0.1, Baso # (Auto) 0.1, Sodium 139, Potassium 4.4, Chloride 104, Carbon Dioxide 28, Anion Gap 11.4, BUN 10, Creatinine 0.80, Estimated Creat Clear 80, Estimated GFR 97, Est GFR ( Amer) 117, Glucose 151 H, Calcium 9.5, Total Bilirubin 1.1, AST 30, ALT 27, Alkaline Phosphatase 51, Troponin I < 0.01, Total Protein 7.4, Albumin 4.7, Globulin 2.7, Albumin/Globulin Ratio 1.7 08/29/23 11:55 08/29/23 11:55 Orders (Tests/Meds): ED MEDICATIONS Discontinued Medications Generic Name Dose Route Start Last Admin Trade Name Liuq PRN Reason Stop Dose Admin Aspirin 324 mg 08/29/23 12:00 08/29/23 12:13 Aspirin 81mg Chewable Tablet PO 08/29/23 12:01 324 mg ONCE ONE Administration Sodium Chloride 10 ml 08/29/23 11:58 Sodium Chloride 0.9% 10ml Flush Syringe IV 09/28/23 11:57 NEEDED PRN Maintain IV Site ORDERS Category Date Time Status XR chest 2V Stat Exams 08/29/23 11:57 Completed Complete Blood Count Auto Diff Stat Lab 08/29/23 11:55 Completed Comprehensive Metabolic Panel Stat Lab 08/29/23 11:55 Completed Troponin I Stat Lab 08/29/23 11:55 Completed ECG Data Tracing #1: Normal sinus rhythm with first-degree AV block. RI interval 229 ms. Ventricular rate of [address] changes concerning for ischemia at this time. Left axis deviation. ECG initial impression date: 08/29/23 ECG initial impression time: 11:50 Medical Decision Narrative: In summary, this patient is a 67-year-old male presenting to the Emergency Department for evaluation of left arm pain, left jaw pain, and nausea that woke him up from sleep last night. He also has had intermittent bilateral upper extremity pain in the past. Differential diagnoses considered include but are not limited to ACS, GERD, cervical radiculopathy, shoulder impingement, musculoskeletal strain/sprain. Ruling out the most morbid conditions drove assessment. On exam, patient is well-appearing. He has equal pulses and normal sensation in the bilateral upper extremities. Cardiopulmonary exam is reassuring, and vitals are normal on cardiac telemetry. Workup included CBC, CMP, troponin, chest x-ray, and EKG. EKG is reassuring. Patient was given oral aspirin. I independently interpreted chest x-ray prior to the radiologist read and noted focal consolidation, pneumothorax, or other concerns. Please see their read for final interpretation. Labs were obtained that demonstrated no acutely concerning abnormalities with negative troponin. On reassessment, the patient is resting comfortably. His symptoms started yesterday, so I do feel that he should have elevations in his Troponin at this point. I advised that we could keep him here for second troponin to make sure that he does not have any acute change, however he states that he does not feel this is necessary and would just like to follow-up closely with cardiology. I gave him information for cardiology follow-up here. Patient was given instructions for close a patient follow-up, strict return precautions, and he was discharged in stable condition with plans for close outpatient follow-up. Critical Care Critical Care Time Critical Care Time: No
--- NOTE | 2023-08-29 13:31 | PC.NURSE ---
DR ROJAS AT BEDSIDE TO UPDATE PT
[2023-08-29 13:42] VITALS: BP 142/85; PULSE 71; RESP 12; TEMP 36.7; O2SAT 95
== END 2023-08-29 13:43 | disposition home or self-care (01) ==
PROVIDERS: Emergency Provider Emergency Medicine; PCP Internal Medicine Adolescent Medicine
DX: R07.89 Other chest pain (principal); I44.0 Atrioventricular block, first degree; M79.602 Pain in left arm; R68.84 Jaw pain; R11.0 Nausea
CPT/HCPCS: 71046; 80053; 84484; 85025; 93005; 99284

== ENCOUNTER 2023-08-30 15:18 | Outpatient (CLI) | payer MEDICARE, SELFPAY ==
[2023-08-30 16:36] LABS: Basophils # 0.1 K/mm3 (0-0.2); Basophils % 0.7 % (0.1-2.0); Eosinophils # 0.2 K/mm3 (0.0-0.4); Eosinophils % 2.2 % (0.1-12.0); Hematocrit 46.8 % (42.0-52.0); Hemoglobin 15.4 g/dL (14.1-18.0); Lymphocytes # 2.2 K/mm3 (0.7-4.5); Lymphocytes % 27.8 % (10-50); Mean Corpuscular HGB Conc 32.8 g/dL (31.8-35.4); Mean Corpuscular Hemoglobin 29.7 pg (27.0-31.2); Mean Corpuscular Volume 90.5 fl (80-94); Mean Platelet Volume 7.9 fl (7.4-10.4); Monocytes # 0.6 K/mm3 (0.1-1.0); Monocytes % 7.4 % (1.7-9.3); Neutrophils % 61.9 % (37.0-80.0); Platelet Count 508 K/mm3 (142-424); Red Blood Count 5.18 M/mm3 (4.60-6.20); Red Cell Distribution Width 15.3 % (11.5-17.5); White Blood Count 8.1 K/mm3 (4.8-10.8)
[2023-08-30 16:55] LABS: Alanine Aminotransferase 21 U/L (12-78); Albumin Level 4.6 g/dl (3.5-5.0); Alkaline Phosphatase 50 U/L (38-126); Anion Gap 12.4 mEq/L (5-15); Aspartate Amino Transferase 26 U/L (17-59); Bilirubin,Indirect 0.8 mg/dL (0.0-0.9); Bilirubin,Total 0.8 mg/dl (0.2-1.3); Bilirubin,Unconjugated 0.8 mg/dL (0.0-1.1); Blood Urea Nitrogen 13 mg/dl (9-20); Calcium 10.2 mg/dl (8.4-10.2); Carbon Dioxide 28 mmol/L (22.0-30.0); Chloride 104 mmol/L (98-107); Chol/HDL Ratio 3.8 (1-3.5); Cholesterol 159 mg/dl (140-200); Estimated Glomerular Filt Rate 75 ml/min (>60); GFR (African American) 91 ML/MIN (>60); Glucose 125 mg/dl (74-100); HDL Cholesterol 42 mg/dl (40-60); Hemoglobin A1C 7.4 % (4.0-6.0); Potassium 4.4 mmoL/L (3.5-5.1); Sodium 140 mmol/L (136-145); Total Protein,Serum 6.9 g/dl (6.3-8.2); Triglycerides 178 mg/dl (30-150); VLDL Cholesterol 36 mg/dL (0-40)
[2023-08-30 17:06] LABS: Direct LDL Cholesterol 86.25 mg/dL (100-129)
[2023-08-30 17:12] LABS: Free T4 (Free Thyroxine) 1.35 ng/dl (0.78-2.19)
[2023-08-30 17:25] LABS: Thyroid Stimulating Hormone 2.64 uIU/mL (0.465-4.68)
== END 2023-08-30 23:59 ==
LOC: LAB 15:19
PROVIDERS: PCP Internal Medicine Adolescent Medicine; Visit Provider Internal Medicine
DX: E03.9 Hypothyroidism, unspecified (principal); E11.9 Type 2 diabetes mellitus without complications; E78.5 Hyperlipidemia, unspecified; R03.0 Elevated blood-pressure reading, without diagnosis of hypertension; I20.89 Other forms of angina pectoris; Z79.84 Long term (current) use of oral hypoglycemic drugs
CPT/HCPCS: 36415; 80048; 80061; 80076; 83036; 83735; 84439; 84443; 85025

== ENCOUNTER 2023-09-08 07:54 | Day surgery (SDC) | payer MEDICARE, SELFPAY ==
[2023-09-08] VITALS (15 sets, daily range): BP systolic 115–180; BP diastolic 78–110; PULSE 59–80; RESP 15–18; TEMP 36.4; O2SAT 91–98; BMI 25.5
--- NOTE | 2023-09-08 07:19 | IR_ITS ---
APPROVED REPORT Patient Location: Outpatient Assistant Shift Supervisor: DORON Manuel RT (R) PROCEDURES Selective coronary angiogram Drug-eluting stent deployment to the proximal mid and distal dominant right coronary artery contiguous manner INDICATION Coronary artery disease, Angina pectoris Informed consent was obtained prior to the procedure. COMPLICATIONS NONE Estimated Blood Loss: LESS THAN 10 ML TECHNIQUE One percent lidocaine used to anesthetize the right anterior aspect of the wrist. The right radial artery was accessed via the Seldinger technique. A 6 Belgian sheath was placed in the right radial artery. 2.5 mg of Verapamil, 800 mcg of nitroglycerin, 1mg Lidocaine and 5000 U Heparin were given through the arterial sheath. The papa catheter was also used to perform selective coronary angiogram. At the end of the procedure the procedure therapeutic heparin was administered giving a therapeutic ACT and the guide catheter was placed in the right coronary followed by a BMW wire placed distally. A 3.5 x 38 mm [place] frontier stent was placed in the proximal to mid right coronary at 20 franky. Following this an additional 3 mm x 34 mm [place] frontier stent was deployed distally at 24 franky reducing the stenosis. A 4 mm shockwave balloon was advanced however the catheter continued to malfunction therefore it was removed and a 4 mm x 12 mm noncompliant balloon was placed distally at the junction between the 3.5 and 3 mm stent and then deployed at 20 franky. The balloon was deployed at 24 franky in the same area and then throughout the entire proximal portion of the 3 mm stent back in through the entire 3.5 mm stent. Following this a 4.5 x 15 mm [place] frontier stent was placed proximal to the 3.5 mm stent and deployed at 24 franky. The balloon was advanced and then deployed at 24 franky to further post dilate. Excellent angiographic results were obtained. At the end the procedure the apparatus was removed the sheath was removed hemostasis was achieved using TR banding patient was transferred to the postop putting in stable condition. NANNETTE-3 flow was present before and after the procedure ANGIOGRAPHIC RESULTS The left main artery Normal The left anterior descending artery Is proximally normal with mid vessel 30 to 40% stenosis The circumflex artery Nondominant gives rise to a medium sized ramus intermedius which has 20% proximal stenosis The right coronary artery Large dominant with a proximal 70% mid vessel concentric calcified 70% stenosis in the distal calcified concentric 90% stenosis The XIONG ventriculogram reveals Not performed The left ventricular end-diastolic pressure Not measured IMPRESSION Severe to critical disease throughout massively large dominant right coronary Successful reconstruction of the proximal mid and distal dominant right coronary artery severe and critical disease reduced to 0% with 3 contiguous drug-eluting stents Persistent mild to moderate disease in the mid right coronary PLAN 1. Effient 10 mg daily plus aspirin 81 mg daily 2. LDL less than 55 to be achieved with high intensity statin 3. Start bisoprolol 5 mg daily and Altace 5 mg daily with plans to uptitrate as tolerated and blood pressure allows 4. Avoidance of tobacco products 5. Cardiac rehabilitation Electronically signed by : Junior Dacosta MD 09/08/2023 11:10:26
[2023-09-08 08:23] LABS: Basophils % 0.6 % (0.1-2.0); Eosinophils # 0.2 K/mm3 (0.0-0.4); Eosinophils % 2.4 % (0.1-12.0); Hematocrit 43.9 % (42.0-52.0); Lymphocytes # 2.4 K/mm3 (0.7-4.5); Lymphocytes % 31.2 % (10-50); Mean Corpuscular HGB Conc 34.1 g/dL (31.8-35.4); Mean Corpuscular Hemoglobin 29.2 pg (27.0-31.2); Mean Corpuscular Volume 85.7 fl (80-94); Monocytes # 0.6 K/mm3 (0.1-1.0); Monocytes % 7.1 % (1.7-9.3); Neutrophils # 4.5 K/mm3 (1.8-7.8); Neutrophils % 58.8 % (37.0-80.0); Platelet Count 409 K/mm3 (142-424); Red Blood Count 5.12 M/mm3 (4.60-6.20); Red Cell Distribution Width 15.1 % (11.5-17.5); White Blood Count 7.6 K/mm3 (4.8-10.8)
[2023-09-08 08:30] LABS: Chloride 104 mmol/L (98-107); Potassium 3.5 mmoL/L (3.5-5.1); Sodium 138 mmol/L (136-145)
[2023-09-08 08:33] LABS: Blood Urea Nitrogen 9 mg/dl (9-20); Creatinine Clearance Estimated 84 mL/min (50-200); Estimated Glomerular Filt Rate 97 ml/min (>60); GFR (African American) 117 ML/MIN (>60)
[2023-09-08 08:34] LABS: Anion Gap 8.5 mEq/L (5-15); Calcium 8.9 mg/dl (8.4-10.2); Carbon Dioxide 29 mmol/L (22.0-30.0); Glucose 188 mg/dl (74-100)
[2023-09-08] MEDS: 0.9 % SODIUM CHLORIDE 500 ML 25 ML IV (09:38)
[2023-09-08] MEDS: HEPARIN 1,000 UNITS/500ML NS (CATH LAB) 3000 UNIT IV (09:38)
[2023-09-08] MEDS: LIDOCAINE 1% 10ML MDV 20 ML IJ (09:39)
[2023-09-08] MEDS: HEPARIN 1,000 UNITS/ML 10ML VIAL (CATH LAB) 10000 UNIT IV (09:39)
[2023-09-08] MEDS: VERAPAMIL 2.5MG/ML 2ML VIAL 2.5 MG IV (09:39)
[2023-09-08] MEDS: diphenhydrAMINE 50MG/ML VIAL 50 MG IV (09:39)
[2023-09-08] MEDS: NITROGLYCERIN 800MCG/8ML SYR (CATH LAB) 800 MCG IA (09:40)
[2023-09-08] MEDS: MIDAZOLAM HCL 1MG/1ML 5ML VIAL 1 MG IV (10:04)
[2023-09-08] MEDS: FENTANYL 100MCG/2ML VIAL 50 MCG IV (10:04)
[2023-09-08] MEDS: ASPIRIN 325MG TABLET 325 MG PO (10:34)
[2023-09-08] MEDS: PRASUGREL 10MG TAB 60 MG PO (10:34)
[2023-09-08] MEDS: LABETALOL 20MG/4ML SYRINGE 20 MG IV (10:38)
[2023-09-08] MEDS: IOPAMIDOL-370 (76%);100ML BOTTLE 130 ML IV (12:46)
[2023-09-08 12:51] LABS: CATHL Activated Clotting Time 274 SEC (74-125)
[2023-09-08 12:52] LABS: CATHL Activated Clotting Time > 400 SEC (74-125)
== END 2023-09-08 14:22 | disposition home or self-care (01) ==
PROVIDERS: PCP Internal Medicine Adolescent Medicine; Visit Provider Internal Medicine
DX: E03.9 Hypothyroidism, unspecified (principal); E11.9 Type 2 diabetes mellitus without complications; E78.5 Hyperlipidemia, unspecified; I25.118 Atherosclerotic heart disease of native coronary artery with other forms of angina pectoris; R03.0 Elevated blood-pressure reading, without diagnosis of hypertension; Z79.899 Other long term (current) drug therapy; Z79.84 Long term (current) use of oral hypoglycemic drugs; E55.9 Vitamin D deficiency, unspecified
CPT/HCPCS: 80048; 85025; 85347; 92928; 93454; 99152; 99153; C1725; C1769; C1876; C9600; J1644; Q9967

== ENCOUNTER 2023-09-12 10:02 | Outpatient (CLI) | payer MEDICARE, SELFPAY ==
[2023-09-12 10:31] LABS: Basophils % 0.4 % (0.1-2.0); Eosinophils # 0.2 K/mm3 (0.0-0.4); Eosinophils % 2.5 % (0.1-12.0); Hemoglobin 14.5 g/dL (14.1-18.0); Lymphocytes % 26.1 % (10-50); Mean Corpuscular HGB Conc 33.7 g/dL (31.8-35.4); Mean Corpuscular Hemoglobin 29.7 pg (27.0-31.2); Mean Corpuscular Volume 88.2 fl (80-94); Mean Platelet Volume 7.3 fl (7.4-10.4); Monocytes # 0.6 K/mm3 (0.1-1.0); Monocytes % 7.2 % (1.7-9.3); Neutrophils # 4.9 K/mm3 (1.8-7.8); Neutrophils % 63.8 % (37.0-80.0); Platelet Count 397 K/mm3 (142-424); Red Blood Count 4.87 M/mm3 (4.60-6.20); Red Cell Distribution Width 15.3 % (11.5-17.5); White Blood Count 7.6 K/mm3 (4.8-10.8)
[2023-09-12 11:39] LABS: Chloride 102 mmol/L (98-107); Sodium 136 mmol/L (136-145)
[2023-09-12 11:40] LABS: Potassium 3.8 mmoL/L (3.5-5.1)
[2023-09-12 11:43] LABS: Anion Gap 7.8 mEq/L (5-15); Blood Urea Nitrogen 11 mg/dl (9-20); Calcium 9.3 mg/dl (8.4-10.2); Carbon Dioxide 30 mmol/L (22.0-30.0); Estimated Glomerular Filt Rate 97 ml/min (>60); GFR (African American) 117 ML/MIN (>60); Glucose 239 mg/dl (74-100)
== END 2023-09-12 23:59 ==
PROVIDERS: PCP Internal Medicine Adolescent Medicine; Visit Provider Internal Medicine
DX: I25.10 Atherosclerotic heart disease of native coronary artery without angina pectoris (principal)
CPT/HCPCS: 36415; 80048; 85025

== ENCOUNTER 2023-09-14 08:33 | Outpatient (CLI) | payer MEDICARE, SELFPAY ==
--- NOTE | 2023-09-14 08:37 | CA_ITS ---
APPROVED REPORT EXAM: Comprehensive 2D, Doppler, and color-flow Echocardiogram Spray Operator: Huong Hu CRT Ht: 5 ft 10 in Wt: 178lbs BSA: 1.99 BP: 172/97 mmHg Indications: Chest Pain, CAD, recent stents, left arm pain 2D Dimensions LA Volume 38.40 mL LA Volume Index 18.90 mL/m2 (M/F) 16-34 M-Mode Dimensions RVDd 2.75 cm (0.9-2.6) LA Diam 3.86 cm (1.9-4.0) LVDd 5.36 cm (3.5-5.7) LVDs 3.18 cm (3.5-5.7) IVSd 1.11 cm (0.6-1.1) PWd 0.93 cm (0.6-1.1) EF (Teich) 71.00% FS 40.70% EDV (Teich) 138.90 mL TAPSE 2.15 (<1.7) ESV (Teich) 40.30 mL LV Diastology E Decel Time 250 (160-240 msec) E/A Ratio 0.65 MED A' 8.50 cm/s LAT A' 11.30 cm/s Aortic Valve AO Peak GR. 4.60 mmHg Mitral Valve MV A Velocity 89.0 (40-130 cm/s) E/A Ratio 0.65 Pulmonary Valve PV Peak Velocity 123.0 (50-150 cm/s) Tricuspid Valve TR P. Velocity 183.00 cm/s RAP Estimate 10.00 mmHg RVSP 23.50 mmHg Left Ventricle The left ventricle is normal size. The left ventricular systolic function is normal. The left ventricular ejection fraction is within the normal range. There is increased LV wall thickness. There is normal LV segmental wall motion. Transmitral Doppler flow pattern suggests impaired LV relaxation. LVEF is 55%. Right Ventricle The right ventricle is normal size. The right ventricular systolic function is normal. Atria The left atrium size is normal. The right atrium size is normal. There is no Doppler evidence of interatrial shunt. Aortic Valve The aorti valve is trileaflet. The aortic valve opens well. There is no aortic valvular stenosis. No aortic regurgitation is present. Mitral Valve The mitral valve is normal in structure. No evidence of mitral valve stenosis. Mild mitral regurgitation. Tricuspid Valve The tricuspid valve leaflets are thin and pliable. Trace tricuspid regurgitation. There is insufficient TR jet to estimate RVSP. Pulmonic Valve The pulmonary valve is normal in structure. Trace pulmonic regurgitation. Great Vessels The aortic root is normal in size. The ascending aorta is normal in size. IVC is normal in size and collapses >50% with inspiration. Pericardium There is no pericardial effusion. Other Information Study Quality: Fair Conclusion Normal biventricular systolic function. Mild MR. Electronically signed by : Kasia Reyes MD 09/16/2023 19:22:02
== END 2023-09-14 23:59 ==
LOC: RT 08:33
PROVIDERS: PCP Internal Medicine Adolescent Medicine; Visit Provider Internal Medicine
DX: I25.119 Atherosclerotic heart disease of native coronary artery with unspecified angina pectoris (principal); R03.0 Elevated blood-pressure reading, without diagnosis of hypertension; E78.5 Hyperlipidemia, unspecified; E11.9 Type 2 diabetes mellitus without complications; Z79.84 Long term (current) use of oral hypoglycemic drugs; E03.8 Other specified hypothyroidism; R94.31 Abnormal electrocardiogram [ECG] [EKG]; R07.9 Chest pain, unspecified
CPT/HCPCS: 93306

== ENCOUNTER 2023-09-19 16:14 | Outpatient (CLI) | payer MEDICARE, SELFPAY ==
--- NOTE | 2023-09-19 16:19 | XR_ITS ---
PROCEDURE INFORMATION: Exam: XR Left Shoulder Exam date and time: 09/19/2023 4:21 PM Age: 68 years old Clinical indication: Pain; Shoulder; Left; Additional info: Acute pain of left shoulder x 3 months TECHNIQUE: Imaging protocol: Radiologic exam of the left shoulder. Views: 2 or more views. COMPARISON: CR XR CHEST 2V 08/29/2023 11:57 AM FINDINGS: Bones/joints: Mild degenerative spurring of the AC joint. No acute fracture identified. No other significant bone or joint abnormality. Soft tissues: Normal. IMPRESSION: No acute abnormality.
== END 2023-09-19 23:59 ==
PROVIDERS: PCP Internal Medicine Adolescent Medicine; Visit Provider Internal Medicine Adolescent Medicine
DX: M25.512 Pain in left shoulder (principal)
CPT/HCPCS: 73030

== ENCOUNTER 2023-09-27 09:36 | Outpatient (CLI) | payer MEDICARE, SELFPAY ==
--- NOTE | 2023-09-27 09:36 | CA_ITS ---
FINAL REPORT TECHNIQUE: Color Doppler, duplex Doppler and jorge scale sonography of the bilateral neck vasculature was performed. Velocities were measured in the carotid arteries. Stenosis evaluation based on velocity criteria. CLINICAL HISTORY: CAD, HTN, HLD, DM II, 4 cardiac stents, bruit COMPARISON: None FINDINGS: The peak systolic velocity of the right common carotid artery is 105 cm/sec and internal carotid artery 60 to cm/sec. The diastolic velocity in the internal carotid artery is 19 cm/sec. The ICA/CCA ratio is 1.14. Visually, a small amount of plaque is seen. These findings are consistent with less than 50% stenosis. The external carotid artery is patent. The right vertebral artery is patent with antegrade flow. The peak systolic velocity of the left common carotid artery is 73 cm/sec and internal carotid artery 79 cm/sec. The diastolic velocity in the internal carotid artery is 31 cm/sec. The ICA/CCA ratio is 1.57. Visually, a small amount of plaque is seen. These findings are consistent with less than 50% stenosis. The external carotid artery is patent. The left vertebral artery is patent with antegrade flow. IMPRESSION: No evidence of significant carotid stenosis. Bilateral patent vertebral arteries. If indicated, CTA or MRA could further evaluate. Reviewed, Interpreted and Dictated by Willi Dias III, MD Transcribed by Bev Mckenna Authenticated and [facility]
== END 2023-09-27 23:59 ==
LOC: RT 09:36
PROVIDERS: PCP Internal Medicine Adolescent Medicine; Visit Provider Physician Assistant
DX: E03.9 Hypothyroidism, unspecified (principal); E11.9 Type 2 diabetes mellitus without complications; E78.5 Hyperlipidemia, unspecified; I25.10 Atherosclerotic heart disease of native coronary artery without angina pectoris; R09.89 Other specified symptoms and signs involving the circulatory and respiratory systems; Z79.84 Long term (current) use of oral hypoglycemic drugs; Z79.899 Other long term (current) drug therapy
CPT/HCPCS: 93880

== ENCOUNTER 2024-03-06 10:41 | Outpatient (CLI) | payer MEDICARE, SELFPAY ==
[2024-03-06 11:01] LABS: Basophils # 0.1 K/mm3 (0-0.2); Basophils % 1.1 % (0.1-2.0); Eosinophils # 0.1 K/mm3 (0.0-0.4); Hematocrit 49.9 % (42.0-52.0); Hemoglobin 15.8 g/dL (14.1-18.0); Lymphocytes % 28.1 % (10-50); Mean Corpuscular HGB Conc 31.6 g/dL (31.8-35.4); Mean Corpuscular Hemoglobin 30.9 pg (27.0-31.2); Mean Platelet Volume 6.9 fl (7.4-10.4); Monocytes # 0.6 K/mm3 (0.1-1.0); Monocytes % 8.1 % (1.7-9.3); Neutrophils # 4.4 K/mm3 (1.8-7.8); Neutrophils % 60.8 % (37.0-80.0); Platelet Count 414 K/mm3 (142-424); Red Blood Count 5.09 M/mm3 (4.60-6.20); White Blood Count 7.2 K/mm3 (4.8-10.8)
[2024-03-06 11:10] LABS: Creatine Kinase 264 U/L (55-170)
[2024-03-06 11:20] LABS: CKMB Relative Index 1.6 U/L (0-4.0); Creatine Kinase MB 4.1 ng/ml (0.0-2.03)
[2024-03-06 11:23] LABS: Troponin I < 0.01 ng/ml (0.00-0.034)
[2024-03-06 12:07] LABS: Vitamin B12 649 pg/mL (239-931)
== END 2024-03-06 23:59 | disposition home or self-care (01) ==
LOC: LAB 10:42
PROVIDERS: PCP Nurse Practitioner Family; Visit Provider Nurse Practitioner Family
DX: R07.9 Chest pain, unspecified (principal); I25.119 Atherosclerotic heart disease of native coronary artery with unspecified angina pectoris; R53.81 Other malaise; Z68.24 Body mass index [BMI] 24.0-24.9, adult
CPT/HCPCS: 36415; 82550; 82553; 82607; 84484; 85025

== ENCOUNTER 2024-08-31 09:07 | Outpatient (CLI) | payer MEDICARE, SELFPAY ==
[2024-08-31 09:13] LABS: Coronavirus 19, PCR Not Detected (NotDetected); Human Rhinovirus Not Detected (NotDetected); Influenza B, PCR Not Detected (NotDetected); Respiratory Syncytial Virus Not Detected (NotDetected)
[2024-08-31 13:03] LABS: Influenza A, PCR Detected (NotDetected)
== END 2024-08-31 23:59 | disposition home or self-care (01) ==
LOC: LAB 09:08
PROVIDERS: PCP Internal Medicine Adolescent Medicine; Visit Provider Nurse Practitioner Family
DX: J06.9 Acute upper respiratory infection, unspecified (principal)
CPT/HCPCS: 87631

== ENCOUNTER 2025-02-25 07:52 | Outpatient (CLI) | payer MEDICARE, SELFPAY ==
--- OUTSIDE RECORDS SUMMARY | 2025-02-25 07:55 | XMS_ITS | Encounter Summary ---
Author Organization [employer] ([place], [place], [place], [place]) Address [address] [place] [address] Care Team Providers Care Shipping Hand Name Role Phone Unavailable Primary Care Provider Unavailabl e Encounter Details Date Type Department Care Team (Late st Contact Info) Description 10/01/2020 Transcribed Document [facility] [place] Family Medicine [address] [place] [address] ProviderSharee MD [address], [place] [id number] Social History Tobacco Use Types Packs/Day Years Used Date Smoking Tobacco: Never Assessed Sex and Gender Information Value Date Recorded Sex Assigned at Not on file Legal Sex Male 4:43 PM CDT Gender Identity Not on file Sexual Orientation Not on file documented as of this encounter Miscellaneous Notes * Cerner Conversion Note - Historical ProviderMD - 10/01/2020 5:00 PM BRAND MANAGER Chart Check - Review Order Profile Entered On: 10/01/2020 18:32 EST Performed On: 10/01/2020 17:00 EST by DANITZA VILLAFANA RN Chart Check Powerplans Initiated/Discontinued as Appropriate : Yes All Active Orders Reviewed : Yes DANITZA VILLAFANA RN - 10/01/2020 18:32 EST Electronically signed by Enedina [facility] Conversion Heading And Priming Operator Cerner at 11/11/2022 11:30 AM CDT documented in this encounter Plan of Treatment Not on file documented as of this encounter Visit Diagnoses Not on filedocumented in this encounter
--- OUTSIDE RECORDS SUMMARY | 2025-02-25 07:55 | XMS_ITS | Encounter Summary ---
Author Organization [employer] ([place], [place], [place], [place]) Address [address] [place] [address] Care Team Providers Care Yarn Carrier Name Role Phone Unavailable Primary Care Provider Unavailabl e Encounter Details Date Type Department Care Team (Late st Contact Info) Description 10/01/2020 Transcribed Document [facility] [place] [facility] [place] [place] [address] ProviderSharee MD [address] [place], [place] [id number] Social History Tobacco Use Types Packs/Day Years Used Date Smoking Tobacco: Never Assessed Sex and Gender Information Value Date Recorded Sex Assigned at Not on file Legal Sex Male 4:43 PM CDT Gender Identity Not on file Sexual Orientation Not on file documented as of this encounter Miscellaneous Notes * Cerner Conversion Note - Sharee ProviderMD - 10/01/2020 8:50 AM 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 Name: WERNER BAEZ/Sex: 1955 Male Med Rec #: [id number] Physician: ANDREW WATSON MD-SN Financial #: [id number] Pt. Type: O Room/Bed: [facility]/1 Admit/Disch: 10/01/20 07:57:00 - Institution: [facility] Main OR PACU I Case Times Entry 1 In PACU I 10/01/20 10:27:00 Ready for PACU 10/01/20 11:38:00 Discharge Discharge from PACU 10/01/20 11:38:00 I Last Modified By: MICHAEL WITT RN 10/01/20 14:28:52 Finalized By: MICHAEL WITT, RN Document Signatures Signed By: MICHAEL WITT RN 10/01/20 14:28 Electronically signed by Enedina [facility] Conversion Fish Trapper Cerner at 11/11/2022 11:30 AM CDT documented in this encounter Plan of Treatment Not on file documented as of this encounter Visit Diagnoses Not on filedocumented in this encounter
--- OUTSIDE RECORDS SUMMARY | 2025-02-25 07:55 | XMS_ITS | Clinical Summary ---
[facility] Organization [facility] Address [address] [place] [address] Care Team Providers Care Mental Health Specialist Name Role Phone Provider, No Known Primary Care Provider [phone] Social History Tobacco Use Types Packs/Day Years Used Date Smoking Tobacco: Never Assessed Abuse Screen Answer Date Recorded Unsafe at Home or Work/School Not on file Feels Threatened by Someone? Not on file 05/2023 Does Anyone Keep You from Co ntacting Others or Doint Things Outside the Home? Not on file 05/04/2023 Physical Sign of Abuse Present Not on file 1 Housing Stability Answer Date Recorded Current Living Arrangements Not on file 04/24 Potentially Unsafe Housing Conditions Not on anna e 05/04/2023 Family and Community Support Answer Lonnie e Recorded Help with Day-to-Day Activities Not on file 05/04/2023 Lonely or Isolated Not on file 05/04/2023 Employment Answer Date Recorded Do you want help finding or keeping work or a dillan b? Not on file 05/04/2023 Disabilities Answer Date Recorded Concentrating, Remembering, or Making Decisions Difficulty Not on file 05/04/2023 Doing Errands Independently Difficulty Not on fi le 05/04/2023 Education Answer Date Recorded Help with school or training? Not on file Preferred Language Not on file 05/04/2023 Sex and Gender Information Value Date Recorded Sex Assigned at Not on file Legal Sex Male 2:21 PM EDT Gender Identity Not on file Sexual Orientation Not on file Plan of Treatment Health Maintenance Due Date Last Done Comments ANNUAL PHYSICAL 1955 HEPATITIS C SCREENING 1955 TDAP/TD VACCINES (1 - Tdap) 1976 COLOGUARD 2002 COLON CANCER SCREENING 5 YEAR SIGMOIDOSCOPY 2002 COLONOSCOPY 2002 [address] CANCER SCREENING 2002 CT COLONOGRAPHY 2002 FECAL OCCULT BLOOD TEST 2002 FIT Testing (1 year) 2002 Pneumococcal Vaccine 50+ (1 of 1 - PCV) 2007 ZOSTER VACCINE (1 of 2) 2007 AAA SCREEN ONCE 2022 COVID-19 Vaccine ( season) 2024 INFLUENZA VACCINE 04/24/2025 Insurance [facility] PPO Care Teams Mental Health Specialist Relationship Specialty Start Date End Date Provider, No Known [facility] [place] [address] PCP - General 05/13/16
--- OUTSIDE RECORDS SUMMARY | 2025-02-25 07:55 | XMS_ITS | Encounter Summary ---
Author Organization [employer] ([place], [place], [place], [place]) Address [address] [place] [address] Care Team Providers Care Section Laborer Name Role Phone Unavailable Primary Care Provider Unavailabl e Encounter Details Date Type Department Care Team (Late st Contact Info) Description 10/01/2020 Transcribed Document [facility] [place] [facility] [place] [address] ProviderSharee MD [address], [place] [phone] Social History Tobacco Use Types Packs/Day Years Used Date Smoking Tobacco: Never Assessed Sex and Gender Information Value Date Recorded Sex Assigned at Not on file Legal Sex Male 4:43 PM CDT Gender Identity Not on file Sexual Orientation Not on file documented as of this encounter Miscellaneous Notes * Cerner Conversion Note - Historical ProviderMD - 10/01/2020 7:[address] Admission History, Adult Entered On: 10/01/2020 15:45 EST Performed On: 10/01/2020 15:00 EST by DANITZA VILLAFANA RN Advance Directive Patient has Advance Directive *Q : Yes, Advance Directive on file Advance Directive Type : Living will Copy Advance Directive Verified/on Chart : Yes DANITZA VILLAFANA RN - 10/01/2020 15:40 EST Anesthesia/Transfusion History Family History of Anesthesia Reaction : No prior transfusion(s) Blood Transfusion Acceptable to Patient : Yes Transfusion History : Prior anesthesia reaction Type of Anesthesia Reaction : Excessive somnolence Family History of Anesthesia Reaction : None DANITZA VILLAFANA RN - 10/01/2020 15:40 EST Education Topics, Admission Orientation DCP GENERIC CODE Assessment/Vital Signs : Verbalizes understanding Bed Control : Verbalizes understanding Call Light : Verbalizes understanding Diet/Room Service : Verbalizes understanding Patient Rights/Responsibilities : Verbalizes understanding Patient Safety : Verbalizes understanding Rounding : Verbalizes understanding Television/Phone : Verbalizes understanding Visiting Policy : Verbalizes understanding DANITZA VILLAFANA RN - 10/01/2020 15:40 EST Functional Assessment Living Situation : Home Patient Lives With : Spouse Persons Assisting Patient at Home : Spouse Sensory Deficits : None Mobility Assistance Prior to Admission : Independent Current Home Treatments : None Professional Skilled Services : None Special Services and Community Resources : None DANITZA VILLAFANA RN - 10/01/2020 15:40 EST General Info Preferred Name : Will Mode of Arrival on Unit : Ambulatory Support Person/Patient Show Host : Yes Support Person/Pt Rep Name : Hortencia Baez - Support Person/Pt Rep Contact Information : [phone] Want Family/Rep/Phys Notified of Admit : No Emergency Contact #1 : `Hortencia Baez Emergency Contact #1 ` Emergency Contact #1 Relationship : spouse` Emergency Contact #2 : ` Emergency Contact #2 Phone Number : ` Emergency Contact #2 Relationship : ` Information Obtained From : Patient Primary Language : Ivorian Preferred Communication Mode : Verbal Communication Barrier : None Tool Technician Needed : No Objects to Sharing Info w Family : No DANITZA VILLAFANA RN - 10/01/2020 15:40 EST Fall Risk Scales ABCs Fall Injury Risk Identification : Bones, Coagulation, Surgery ABC Fall Injury Risk : Moderate to high injury risk Injury Moderate to High Risk Interventions : Supervise toileting as indicated MONSALVE Hx Falls Immediate/Within 3 Months : No Monsalve Secondary Diagnosis : No MONSALVE Use of Ambulatory Aid : Bed rest/Nurse assist MONSALVE IV Therapy or IV Access : Yes Monsalve Gait/Transferring : Weak Monsalve Mental Status : Oriented to own ability Monsalve Fall Risk Score : 30 MONSALVE Fall Scale Risk Level : 25-45 Medium Risk [place] Fall Interventions : Adequate lighting, Assistive devices within reach, Bed in low position, Call device within reach, Fall prevention handout/education per facility policy, Hourly comfort/safety rounds, Non-slip footwear, Personal items within reach, Reinforced to call for assistance before getting out of bed, Room free of clutter/spills, Upper side-rails up, Wheels locked, Wires/Cords secured Fall Moderate to High Risk Interventions : High Risk for Fall sign in place per policy DANITZA VILLAFANA RN - 10/01/2020 15:40 EST Fall Risk Education Grid Fall Prevention Protocol : Verbalizes understanding Toileting Schedule : Verbalizes understanding Transfer/Mobility Techniques : Verbalizes understanding Wait for Assistance : Verbalizes understanding DANITZA VILLAFANA RN - 10/01/2020 15:40 EST Barriers to Learning : None evident Individuals Taught : Patient Readiness to Learn : Cooperative Baseline Knowledge of Topic : Good Teaching Method : Explanation Learning Style Preferences Family : Demonstration, Printed materials, Verbal explanation Learning Style Preferences Patient : Demonstration, Printed materials, Verbal explanation Fall Risk Scale Calc Temp : 0 DANITZA VILLAFANA RN - 10/01/2020 15:40 EST Health Histories Smoking Status : Never (less than 100 in lifetime; none in last 30 days) Smokeless Tobacco Status : Never Implant/Device Type, Manager File and Model : right hip replacement hardware in spine DANITZA VILLAFANA RN - 10/01/2020 15:40 EST Social History (As Of: 10/01/2020 15:45:52 EST) Tobacco: Never (less than 100 in lifetime) Smoking Status. Never Smokeless Tobacco Status. (Last Updated: 05/17/2018 08:42:07 EDT by MOO MATIAS, RN) Alcohol: Alcohol Use History No. Use in Last 12 Months: No. (Last Updated: 09/26/2020 09:25:53 EST by Jason Martinez, Rn) Substance Abuse: Drug Use Hx: No. Use in Last 12 Months: No. (Last Updated: 09/26/2020 09:25:53 EST by Jason Martinez, Rn) Height and Weight, Clinical Dosing Height Source : Measured Height Entry Format : [place] Height, Feet : 0 ft(Converted to: 0 cm, 0 Inch) Height, Inches : 71 Inch(Converted to: 5 ft 11 Inch, 180.34 cm) Clinical Height : 180.34 cm Weight Source : Standing scale Weight Entry Format : [place] Clinical Dosing Weight : 82.27 kg Weight, Pounds : 181.0 lb Body Surface Area (BSA) : 2.02 m2 Body Mass Index : 25.3 kg/m2 (HI) [place] Body Weight : 74 kg DANITZA VILLAFANA RN - 10/01/2020 15:40 EST Infectious Disease History Has the patient ever been tested for COVID-19? : No, Screening today for COVID-19 Where was the COVID-19 Testing completed? : [facility] Where are the test results? : Results Pending Date of COVID-19 test known? : Yes Date of COVID-19 Test : 09/29/2020 EST Does patient have symptoms of COVID-19? : No COVID19 Screening : No Experiencing Infectious Disease Symptoms : No symptoms Physical contact outside US in the last 30 days : No Infectious Disease History : Chicken pox/Shingles Tuberculosis Symptoms : None DANITZA VILLAFANA RN - 10/01/2020 15:40 EST Influenza Vaccine Asmt, Adult Influenza Immunization, Current Season : Yes DANITZA VILLAFANA RN - 10/01/2020 16:55 EST Previous Vaccines from Immunization Schedule : No qualifying data available. DANITZA VILLAFANA RN - 10/01/2020 15:40 EST Pneumococcal Vaccine Previous Vaccines from Immunization Schedule : No qualifying data available. Pneumonia Immunization Received : No Pneumococcal Risk Assessment < Age 65 : Diabetes Pneumococcal Vaccine Contraindications : No contraindications to pneumococcal vaccine Transplant Workup/Recent Transplant : No Order for Pneumococcal Vaccine : Order for pneumococcal vaccine sent to pharmacy DANITZA VILLAFANA RN - 10/01/2020 16:55 EST Order Details Order Detail : N/A Patient Needs Meds Crushed/Liquid : No DANITZA VILLAFANA RN - 10/01/2020 15:40 EST Nutrition History Adaptive Feeding Equipment : None Adaptive Feeding Equipment : Consistent carbohydrate diet Eating Poorly Due to Decreased Appetite : No Unplanned Weight Loss in Past 3-6 Months : No Malnutrition Screening Tool Total(mal) : 0 Malnutrition Screening Tool Risk Level : Patient not at risk DANITZA VILLAFANA RN - 10/01/2020 15:40 EST [place] Suicide Severity Rating Scale (C-SSRS) CSSRS Past Month Wish to be : No CSSRS Past Month Suicidal Thoughts : No CSSRS Lifetime Suicide Behavior : No Suicide Severity Rating Score : 0 Suicide Severity Rating : No Additional Care Required at this time DANITZA VILLAFANA RN - 10/01/2020 15:40 EST Psychosocial History Do You Have a History of the Following? : Patient denies history Currently in Unsafe Situation : No DANITZA VILLAFANA RN - 10/01/2020 15:40 EST Sleep Apnea Risk Assmt BiPAP/CPAP Ordered for Home Use : No Hx of Obstructive Sleep Apnea Diagnosis : Yes Age over 50 Years Old : Yes Gender Male : Yes Sleep Apnea Risk Comment : had UPPP surgery DANITZA VILLAFANA RN - 10/01/2020 15:40 EST Valuables and Belongings Valuables and Belongings : Clothing, Personal devices Clothing : Outerwear Clothing Disposition : Bedside Personal Device Disposition : Bedside Personal Devices : Glasses DANITZA VILLAFANA RN - 10/01/2020 16:55 EST documented in this encounter Plan of Treatment Not on file documented as of this encounter Visit Diagnoses Not on filedocumented in this encounter
--- OUTSIDE RECORDS SUMMARY | 2025-02-25 07:55 | XMS_ITS | Encounter Summary ---
Author Organization [employer] ([place], [place], [place], [place]) Address [address] [place] [address] Care Team Providers Care Dry Janitor Name Role Phone Unavailable Primary Care Provider Unavailabl e Encounter Details Date Type Department Care Team (Late st Contact Info) Description 10/01/2020 Transcribed Document [facility] [place] [address] [place] [address] ProviderSharee MD [address] [place], [place] [phone] Social History Tobacco Use Types Packs/Day Years Used Date Smoking Tobacco: Never Assessed Sex and Gender Information Value Date Recorded Sex Assigned at Not on file Legal Sex Male 4:43 PM CDT Gender Identity Not on file Sexual Orientation Not on file documented as of this encounter Miscellaneous Notes * Cerner Conversion Note - Historical ProviderMD - 10/01/2020 11:34 AM MANUFACTURING 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
--- OUTSIDE RECORDS SUMMARY | 2025-02-25 07:55 | XMS_ITS | Encounter Summary ---
Author Organization [employer] ([place], [place], [place], [place]) Address [address] [place] [address] Care Team Providers Care Acid Patroller Name Role Phone Unavailable Primary Care Provider Unavailabl e Encounter Details Date Type Department Care Team (Late st Contact Info) Description 10/01/2020 Transcribed Document [facility] [place] Family [place] [facility] [place] [address] ProviderSharee MD [address], [place] [phone] Social History Tobacco Use Types Packs/Day Years Used Date Smoking Tobacco: Never Assessed Sex and Gender Information Value Date Recorded Sex Assigned at Not on file Legal Sex Male 4:43 PM CDT Gender Identity Not on file Sexual Orientation Not on file documented as of this encounter Miscellaneous Notes * Cerner Conversion Note - Sharee ProviderMD - 10/01/2020 10:18 AM SALES MGR Pain Assessment Entered On: 10/01/2020 18:32 EST Performed On: 10/01/2020 14:05 EST by DANITZA VILLAFANA RN Intervention Information: acetaminophen-HYDROcodone Performed by DANITZA VILLAFANA RN on 10/01/2020 13:05:00 EST acetaminophen-HYDROcodone,1Tab Oral,Pain (Moderate 4-6) Pain Assessment Pain Assessment : Follow-up assessment Pain Scale Goal : 2 Pain Scale Used : 0-10 Scale Location : Neck, anterior, Neck, posterior Pain Improved by Intervention : Yes DANITZA VILLAFANA RN - 10/01/2020 18:32 EST Pain Scale Intensity : 4 DANITZA VILLAFANA RN - 10/01/2020 18:32 EST Image 4 - Images currently included in the form version of this document have not been included in the text rendition version of the form. Electronically signed by Enedina, [facility] Conversion Economic Forecaster Cerner at 11/14/2022 4:34 PM CDT documented in this encounter Plan of Treatment Not on file documented as of this encounter Visit Diagnoses Not on filedocumented in this encounter
--- OUTSIDE RECORDS SUMMARY | 2025-02-25 07:55 | XMS_ITS | Encounter Summary ---
Author Organization [employer] ([place], [place], [place], [place]) Address [address] [place] [address] Care Team Providers Care Rubber Molder Name Role Phone Unavailable Primary Care Provider Unavailabl e Encounter Details Date Type Department Care Team (Late st Contact Info) Description 10/01/[address] [facility] [place] [facility] [place] [address] ProviderSharee MD [address] [place] [address] Social History Tobacco Use Types Packs/Day Years Used Date Smoking Tobacco: Never Assessed Sex and Gender Information Value Date Recorded Sex Assigned at Not on file Legal Sex Male 4:43 PM CDT Gender Identity Not on file Sexual Orientation Not on file documented as of this encounter Miscellaneous Notes * Cerner Conversion Note - Historical ProviderMD - 10/01/2020 10:18 AM HOME FIRE ALARM INSTALLER Evaluation, Physical Therapy Entered On: 10/01/2020 15:52 EST Performed On: 10/01/2020 14:18 EST by LUIZ JOHNSON, VANIA General Information, PT Visit Type, PT : Initial evaluation Patient Orders : Order Date Order Ordering 10/01/2020 10:18 Physical Therapy Eval and Treat Ordered By: ANDREW WATSON MD-SNU Active Diagnoses : No Qualifying Diagnoses Therapy Diagnosis, PT : decreased functional mobility and activity tolerance Onset of Problem, PT : 10/01/2020 EST Admission Date : 10/01/2020 07:57 Personal Devices : Personal Devices No Devices Recorded Assistive Devices : Assistive Devices No Devices Recorded General Information Comment, PT : Dx: cervical stenosis Sx: C3-5 diskectomy and fusion (10/01) LUIZ JOHNSON, PT - 10/01/2020 15:48 EST General Status Patient Received Status : Supine in bed Treatment Start Time : 10/01/2020 14:06 EST Patient Left Status : Supine in bed, Communication board completed, All needs met and within reach RN/PCT Informed Comment : Avis Treatment End Time : 10/01/2020 14:18 EST Treatment Time : 12 Minute(s) LUIZ JOHNSON PT - 10/01/2020 15:48 EST History and Environment Living Situation, Therapy : Home Patient Lives With : Spouse Persons Assisting Patient at Home : Spouse Professional Skilled Services : None Persons Providing Information : Patient Home Equipment Therapy, PT : None Home Setup : One story Bedroom Location : Main level Bathroom #1 Location : Main level Stairs : Yes Stair Location(s) : Outside Outside Stairs, Number of Steps : 1 LUIZ JOHNSON, PT - 10/01/2020 15:48 EST Prior Level of Function PT GRID Prior LOF Ambulation, Household : Independent Prior LOF Ambulation, Community : Independent Prior LOF Bed Mobility : Independent Prior LOF Toileting : Independent Prior LOF Transfer : Independent LUIZ JOHNSON, PT - 10/01/2020 15:48 EST Functional Mobility Mobility Grid Supine to Sit : Rehab Complete independence Sit to Stand : Supervision/set-up Stand to Sit : Supervision/set-up Sit to Supine : Rehab Complete independence LUIZ JOHNSON, PT - 10/01/2020 15:48 EST Gait Training/Assessment, PT Gait Assistance Level : Supervision Walking Distance : 120' with 2 standing rest breaks Ambulatory Devices : None, Gait belt LUIZ JOHNSON PT - 10/01/2020 15:48 EST Edu Topics Physical Therapy Education Grid Role of Physical Therapy : Verbalizes understanding LUIZ JOHNSON PT - 10/01/2020 15:48 EST Indication Assesessment, PT Physical Therapy Indicated : Yes PT Problem List : Impaired, activities daily living, Impaired, bed mobility, Impaired, coordination/proprioception, Impaired, endurance tolerance, Impaired, gait, Impaired, sitting balance, Impaired, standing balance, Impaired, strength, Impaired, transfers Potential Barriers To Therapy : Pain Rehabilitation Potential : Good LUIZ JOHNSON PT - 10/01/2020 15:48 EST Plan of Care, PT PT Tx Plan/Goals Established w Patient : Yes PT Frequency Rehab : Five days per week PT Duration Rehab : Fourteen days PT Treatments Planned : Balance training, Bed mobility training, Gait training, Safety education, Stair training, Therapeutic exercises, Transfer training LUIZ JOHNSON, PT - 10/01/2020 15:48 EST Investigator Goals Mobility/Bed Mobility LTG PT Grid Goal #1 Activity : Sit to stand Assist : Independent, complete Date to Meet : 10/15/2020 EDT Goal Status : Intmer Wiley LUIZ JOHNSON, PT - 10/01/2020 15:48 EST Ambulation LTG Grid Goal #1 Device : None Distance : 400' Assist : Independent, complete Date to Meet : 10/15/2020 EDT Goal Status : Yoni Wiley LUIZ JOHNSON, PT - 10/01/2020 15:48 EST Stairs LTG Grid Goal #1 Device : None Number of Steps : 1 Assist : Independent, complete Date to Meet : 10/15/2020 EDT Goal Status : Intmer LUIZ Wolfe, PT - 10/01/2020 15:48 EST Treatment Note Subjective Comment : Patient agreed to PTx. RN ok'd PTx. Additional Objective Information : Patient required 2 standing rest breaks during ambulation due to fatigue and SOA. SPO2 read 93% during ambulation. Assessment : Patient demonstrates decreased independence and safety with functional mobility, transfers, and gait. Patient also demonstrates decreased activity tolerance and dynamic balance. Patient would benefit from skilled PT services in order to improve in these areas, minimize functional deficits, promote safety and independence, improve quality of life and return to PLOF. Plan for Treatment : Continue POC LUIZ JOHNSON, PT - 10/01/2020 15:48 EST Pain Assessment Pain Scaled Used : 0-10 Pain scale Pain Score Pre-Intervention : 5 Pain Radiation Location : Neck Pain Improved by : Medication Pain Improved by Intervention : Yes LUIZ JOHNSON PT - 10/01/2020 15:48 EST Image 1 - Images currently included in the form version of this document have not been included in the text rendition version of the form. Anticipated Discharge Needs, OT/PT Anticipated Discharge to : Home, with home health Recommend Continued Therapy at Discharge : Yes LUIZ JOHNSON PT - 10/01/2020 15:[address] [facility] Charg[facility] PT Eval Moderate Complexity : 1 LUIZ JOHNSON, PT - 10/01/2020 15:48 EST documented in this encounter Plan of Treatment Not on file documented as of this encounter Visit Diagnoses Not on filedocumented in this encounter
--- OUTSIDE RECORDS SUMMARY | 2025-02-25 07:55 | XMS_ITS | Encounter Summary ---
Author Organization [employer] ([place], [place], [place], [place]) Address [address] [place] [address] Care Team Providers Care Family Consultant Name Role Phone Unavailable Primary Care Provider Unavailabl e Encounter Details Date Type Department Care Team (Late st Contact Info) Description 09/30/2020 Transcribed Document [facility] [place] [address] [place] [address] ProviderSharee MD [address] [place], [place] [phone] Social History Tobacco Use Types Packs/Day Years Used Date Smoking Tobacco: Never Assessed Sex and Gender Information Value Date Recorded Sex Assigned at Not on file Legal Sex Male 4:43 PM CDT Gender Identity Not on file Sexual Orientation Not on file documented as of this encounter Miscellaneous Notes * Cerner Conversion Note - Historical ProviderMD - 09/30/2020 1:14 PM VIDEOTAPE OPERATOR [facility] Authorization Entered On: 09/30/2020 13:15 EST Performed On: 09/30/2020 13:14 EST by LUCY ALEMAN Rn Behavioral Health Primary Insurance Authorization Authorization and Policy Numbers : Insurance 1 Health Plan: [facility] Policy Number: [id number] Authorization Number: Insurance Primary Name : Cash [id number] Authorization Number-Primary : OUT PT Auth# [id number] Authorized Service Begin Date-Primary : 10/01/2020 EST Authorization Comments-Primary : pt is blair for OUT PT Cervical discectomy Fusion Anterior Hardware Removal Spone on 10-01-20 [place] OP Auth# [id number] Historical Authorization Comments-Primary : No Authorization Comments Found LUCY ALEMAN, Rn Behavioral Health - 09/30/2020 13:14 EST Electronically signed by Enedina [facility] Conversion Wine Cellar Worker Cerner at 11/11/2022 11:42 AM CDT documented in this encounter Plan of Treatment Not on file documented as of this encounter Visit Diagnoses Not on filedocumented in this encounter
--- OUTSIDE RECORDS SUMMARY | 2025-02-25 07:55 | XMS_ITS | Clinical Summary ---
Author Organization [employer] ([place], [place], [place], [place]) Address [address] [place] [address] Care Team Providers Care Manager Managed Backup Services Name Role Phone Unavailable Primary Care Provider Unavailabl e Social History Tobacco Use Types Packs/Day Years Used Date Smoking Tobacco: Never Assessed Sex and Gender Information Value Date Recorded Sex Assigned at Not on file Legal Sex Male 4:43 PM CDT Gender Identity Not on file Sexual Orientation Not on file Plan of Treatment Not on file
--- OUTSIDE RECORDS SUMMARY | 2025-02-25 07:55 | XMS_ITS | Encounter Summary ---
Author Organization [employer] ([place], [place], [place], [place]) Address [address] [place] [address] Care Team Providers Care Spool Sander Name Role Phone Unavailable Primary Care Provider Unavailabl e Encounter Details Date Type Department Care Team (Late st Contact Info) Description 10/01/2020 Transcribed Document [facility] [place] Family Medicine [facility] [place] [address] ProviderSharee MD [address] [place], [place] [id number] Social History Tobacco Use Types Packs/Day Years Used Date Smoking Tobacco: Never Assessed Sex and Gender Information Value Date Recorded Sex Assigned at Not on file Legal Sex Male 4:43 PM CDT Gender Identity Not on file Sexual Orientation Not on file documented as of this encounter Miscellaneous Notes * Cerner Conversion Note - Historical ProviderMD - 10/01/2020 10:18 AM BOOSTER PUMP OILER Evaluation, Occupational Therapy Entered On: 10/01/2020 14:54 EST Performed On: 10/01/2020 14:16 EST by Tonia Brady, STUDENT-OCCUPATIONAL THERAPIST General Information, OT Visit Type, OT : Initial evaluation Patient Orders : Order Date Order Ordering 10/01/2020 10:18 Occupational Therapy Evaluation and Treatme Ordered By: ANDREW WATSON MD-SNU Active Diagnoses : No Qualifying Diagnoses Therapy Diagnosis, OT : Decreased independence in ADLs and functional mobility Onset of Problem, OT : 10/01/2020 EST Admission Date : 10/01/2020 07:57 Co-treated by, OT : Physical Therapist Personal Devices : Personal Devices No Devices Recorded Assistive Devices : Assistive Devices No Devices Recorded General Information Comment, OT : Dx: ACDF, removal of anterior plate at C5-6 and C6-7, C3-4 and C4-5 anterior cervical diskectomy Brady, Tonia A, STUDENT-OCCUPATIONAL THERAPIST - 10/01/2020 14:48 EST General Status Patient Received Status : Supine in bed Treatment Start Time : 10/01/2020 14:06 EST Patient Left Status : Supine in bed, RN/PCT informed, All needs met and within reach RN/PCT Informed Comment : ELISABETH hampton. Treatment End Time : 10/01/2020 14:16 EST Treatment Time : 10 Minute(s) Tonia Brady STUDENT-OCCUPATIONAL THERAPIST - 10/01/2020 14:48 EST History and Environment, OT Living Situation, Therapy : Home Patient Lives With : Spouse Persons Assisting Patient at Home : Spouse Persons Providing Information : Patient Home Equipment, Therapy : Walker Walker : Walker, standard Home Setup : One story Bedroom Location : Main level Bathroom #1 Location : Main level Stairs : Yes Stair Location(s) : Outside Outside Stairs, Number of Steps : 1 Tonia Brady STUDENT-OCCUPATIONAL THERAPIST - 10/01/2020 14:48 EST Prior LOF Bathing, OT : Independent Prior LOF Bed Mobility : Independent Prior LOF Upper Body Dressing, OT : Independent Prior LOF Lower Body Dressing, OT : Independent Prior LOF Toileting : Independent Prior LOF Transfer : Independent Prior LOF Grooming, OT : Independent Prior LOF for IADLs, OT : Independent Tonia Brady STUDENT-OCCUPATIONAL THERAPIST - 10/01/2020 14:48 EST Upper Extremity Upper Extremity Dominance : Right Right UE Active ROM : WFL Right UE Strength : WFL Left UE Active ROM : WFL Left UE Strength : WFL Upper Extremity Strength Impaired : No Right UE Strength : WFL Left UE Strength : WFL Tonia Brady STUDENT-OCCUPATIONAL THERAPIST - 10/01/2020 14:48 EST Self Care/Home Management, OT Self Feeding Assist Level, OT : Independent, complete Grooming Assist Level, OT : Supervision or set-up Bathing Assist Level, OT : Supervision or set-up Upper Body Dressing Assist Level, OT : Supervision or set-up Lower Body Dressing Assist Level, OT : Supervision or set-up Toileting Assist Level : Supervision or set-up Toilet Transfer Assist Level : Supervision or set-up Tonia Brady STUDENT-OCCUPATIONAL THERAPIST - 10/01/2020 14:48 EST Functional Mobility Mobility Grid Bed Roll Left : Rehab Complete independence Bed Scooting : Rehab Complete independence Supine to Sit : Rehab Complete independence Sit to Stand : Supervision/set-up Bed to Chair : Supervision/set-up Stand to Sit : Supervision/set-up Sit to Supine : Supervision/set-up Tonia Brady STUDENT-OCCUPATIONAL THERAPIST - 10/01/2020 14:48 EST Cognition Assessment, OT Orientation : Oriented x 4 Tonia Brady STUDENT-OCCUPATIONAL THERAPIST - 10/01/2020 14:48 EST Indication Assessment, OT Occupational Therapy Indicated : Yes Problem List, OT : Impaired, activities daily living, Impaired, endurance tolerance, Impaired functional mobility Potential Barriers, OT : Acuity of illness Rehabilitation Potential, OT : Good Tonia Brady STUDENT-OCCUPATIONAL THERAPIST - 10/01/2020 14:48 EST Plan of Care, OT OT Tx Plan/Goals Established w Patient : Yes OT Frequency Rehab : Five days per week OT Duration Rehab : Fourteen days OT Treatments Planned : Activities of daily living, Functional mobility training, Safety education, Therapeutic activities Tonia Brady STUDENT-OCCUPATIONAL THERAPIST - 10/01/2020 14:48 EST Pet Technologist Goals, OT Grooming LTG Grid Goal #1 Activity : Grooming Assist : Independent, complete Date to Meet : 10/15/2020 EDT Goal Status : Initial goal Tonia Brady STUDENT-OCCUPATIONAL THERAPIST - 10/01/2020 14:48 EST Dressing, Lower Body LTG Grid Goal #1 Activity : Dressing, Lower Body Assist : Independent, modified Date to Meet : 10/15/2020 EDT Goal Status : Initial goal Tonia Brady STUDENT-OCCUPATIONAL THERAPIST - 10/01/2020 14:48 EST Toilet Transfer LTG Grid Goal #1 Activity : Toilet Transfer, Ambulatory Assist : Independent, complete Date to Meet : 10/15/2020 EDT Goal Status : Initial goal Tonia Brady STUDENT-OCCUPATIONAL THERAPIST - 10/01/2020 14:48 EST Treatment Note Subjective Comment : Pt was agreeable. Patient's Response to Treatment : Pt tolerated eval well. Additional Objective Information : Pt was found supine upon arrival. Pt agreed to participate in eval questions. Pt sat up to the EOB with Kris and the HOB elevated. Pt stood and ambulated in the hallway with supervision, requiring two standing rest breaks. Pt complained of shortness of breath during breaks, however pt's o2 sat at the lowest was 92%. Pt returned to the room and was left supine in bed with all needs met and CL in reach. Assessment : Pt will benefit from skilled OT services. Plan for Treatment : See OT goals. Tonia Brady STUDENT-OCCUPATIONAL THERAPIST - 10/01/2020 14:48 EST Pain Assessment Pain Scaled Used : 0-10 Pain scale Pain Score Pre-Intervention : 5 Location : Neck Tonia Brady STUDENT-OCCUPATIONAL THERAPIST - 10/01/2020 14:48 EST Image 1 - Images currently included in the form version of this document have not been included in the text rendition version of the form. [facility] OT Charges OT Eval Low Complexity : 1 Tonia Brady STUDENT-OCCUPATIONAL THERAPIST - 10/01/2020 14:48 EST Electronically signed by Enedina [facility] Conversion Relocation Services Specialist Cerner at 11/11/2022 11:33 AM CDT documented in this encounter Plan of Treatment Not on file documented as of this encounter Visit Diagnoses Not on filedocumented in this encounter
--- OUTSIDE RECORDS SUMMARY | 2025-02-25 07:55 | XMS_ITS | Encounter Summary ---
Author Organization [employer] ([place], [place], [place], [place]) Address [address] [place] [address] Care Team Providers Care Personnel And Payroll Technician Name Role Phone Unavailable Primary Care Provider Unavailabl e Encounter Details Date Type Department Care Team (Late st Contact Info) Description 10/01/2020 Transcribed Document [facility] [place] Family Medicine [facility] [place] [address] ProviderSharee MD [address] [place] [address] Social History Tobacco Use Types Packs/Day Years Used Date Smoking Tobacco: Never Assessed Sex and Gender Information Value Date Recorded Sex Assigned at Not on file Legal Sex Male 4:43 PM CDT Gender Identity Not on file Sexual Orientation Not on file documented as of this encounter Miscellaneous Notes * Cerner Conversion Note - Historical ProviderMD - 10/01/2020 10:47 AM UNDERGROUND TRUCK OPERATOR Pain Assessment Entered On: 10/01/2020 11:16 EST Performed On: 10/01/2020 11:30 EST by MICHAEL WITT RN Intervention Information: HYDROmorphone Performed by MICHAEL WITT RN on 10/01/2020 11:00:00 EST HYDROmorphone,0.5mg IV Push,Left Hand,Pain (Severe 7-10) Pain Assessment Pain Assessment : Follow-up assessment Pain Scale Goal : 2 Pain Scale Used : 0-10 Scale Location : Neck, posterior MICHAEL WITT RN - 10/01/2020 11:15 EST Pain Scale Intensity : 5 MICHAEL WITT RN - 10/01/2020 11:15 EST Image 4 - Images currently included in the form version of this document have not been included in the text rendition version of the form. documented in this encounter Plan of Treatment Not on file documented as of this encounter Visit Diagnoses Not on filedocumented in this encounter
--- OUTSIDE RECORDS SUMMARY | 2025-02-25 07:55 | XMS_ITS | Encounter Summary ---
Author Organization [employer] ([place], [place], [place], [place]) Address [address] [place] [address] Care Team Providers Care Certified Dialysis Technician Name Role Phone Unavailable Primary Care Provider Unavailabl e Encounter Details Date Type Department Care Team (Late st Contact Info) Description 10/01/2020 Transcribed Document [facility] Neurology - [address] [facility] [address] [place] [id number] Junior Kirk MD [address] [place] [address] Social History Tobacco Use Types Packs/Day Years Used Date Smoking Tobacco: Never Assessed Sex and Gender Information Value Date Recorded Sex Assigned at Not on file Legal Sex Male 4:43 PM CDT Gender Identity Not on file Sexual Orientation Not on file documented as of this encounter Miscellaneous Notes * Cerner Conversion Note - Junior Kirk MD - 10/01/2020 11:36 AM EST DATE OF PROCEDURE: 10/01/2020 SURGEON: Junior Kirk MD PRIMARY CARE PHYSICIAN: Dr. Gabino Marin. PREOPERATIVE DIAGNOSES: 1. Previous C5 through C7 anterior cervical discectomy and fusion with plating. 2. C3-4 and C4-5 disk osteophyte complexes. POSTOPERATIVE DIAGNOSES: 1. Previous C5 through C7 anterior cervical discectomy and fusion with plating. 2. C3-4 and C4-5 disk osteophyte complexes. INDICATIONS FOR PROCEDURE: 1. Previous C5 through C7 anterior cervical discectomy and fusion with plating. 2. C3-4 and C4-5 disk osteophyte complexes. PROCEDURES PERFORMED: 1. Removal of an anterior plate and screws at C5-6 and C6-7. 2. C3-4 and C4-5 anterior cervical diskectomy and fusion. HOURLY ASSOCIATE: Suhail Lynn PA-C TYPE OF ANESTHESIA: GEA. DESCRIPTION OF PROCEDURE IN DETAIL: Once consent was noted to be on chart and the risks and benefits of the procedure were again discussed with the patient in the preoperative area, he was taken back to the operating room. He was anesthetized. Video assistance was used during the intubation and both I and the anesthesia provider noted symmetric vocal cords prior to placement of the endotracheal tube. There was also some spasmodic movement of the vocal cords which was symmetric on both sides. He was prepped and draped in usual sterile fashion. Preoperative antibiotics were given. Fluoroscopy was draped in the field and used throughout the case for radiographic guidance. A time-out was called. A 15 blade was used to make a horizontal skin incision to the right of midline over approximately C4-5. It was made a bit lower, so that we could access the plate inferiorly. Bovie electrocautery was used to dissect down to into the platysma muscle. A subplatysmal dissection was performed down to the anterior spine. Soft tissue was removed off the previous plate along with some bone overgrowth. The previous plate was removed. Bone wax was placed into the holes. We placed Trimline retractors at C3-4 and C4-5 and the operating microscope was brought into the field. In-line traction was on the patient at this time with 15 pounds. The anterior osteophyte was removed with a [place], and under microscopic visualization, a complete diskectomy was performed at C3-4 and C4-5. At each level of the posterior longitudinal ligament, bilateral foraminotomies were performed. The endplates were prepared at both levels. Full decompression was achieved at both levels and we could see the spinal cord pulse freely through the dura at both levels. We passed a Dandy nerve hook easily out the neural foramina at C3-4 and C4-5, verifying the exiting C4 and C5 nerve roots were free. With endplates prepared, conduit cages packed with ViviGen were placed into both disk space. Distraction was removed and a [place] plate was affixed to the anterior vertebral bodies from C3 to C6. Set screws were torqued to factory specifications. Fluoroscopy showed good placement of all instrumentation. The wound was copiously irrigated. Meticulous hemostasis was obtained and a 10-Maldivian drain was left into the post-esophageal space. 2-0 Vicryl reapproximated the platysma, 3-0 Vicryl closed the skin subcuticularly. Mastisol and Steri-Strips and a Covaderm were applied. Suhail Lynn assisted throughout the surgery and helped perform the closure. SPECIMEN SENT: Old hardware. ESTIMATED BLOOD LOSS: 50 mL. DRAINS: Darin Webster. COMPLICATIONS: None. /[id number] Junior Kirk MD MPT/AQ / MPT / MODL /[id number] CC: Dr. Gabino Marin documented in this encounter Plan of Treatment Not on file documented as of this encounter Visit Diagnoses Not on filedocumented in this encounter
--- OUTSIDE RECORDS SUMMARY | 2025-02-25 07:55 | XMS_ITS | Encounter Summary ---
Author Organization [employer] ([place], [place], [place], [place]) Address [address] [place] [address] Care Team Providers Care Mosaic Layer Name Role Phone Unavailable Primary Care Provider Unavailabl e Encounter Details Date Type Department Care Team (Late st Contact Info) Description 10/01/2020 Transcribed Document [email or web address] [address] [facility] [address] [place] [phone] Junior Kirk MD [address] [place] [address] Social History Tobacco Use Types Packs/Day Years Used Date Smoking Tobacco: Never Assessed Sex and Gender Information Value Date Recorded Sex Assigned at Not on file Legal Sex Male 4:43 PM CDT Gender Identity Not on file Sexual Orientation Not on file documented as of this encounter Miscellaneous Notes * Cerner Conversion Note - Junior Kirk MD - 10/01/2020 7:47 AM EST Patient: WERNER BAEZ Age: 65 years Sex: Male : 1955 Associated Diagnoses: None Author: SPRING [employer] APRN Chief Complaint neck, idalmis UE pain Review of Systems ROS reviewed as documented in chart no change since last seen by surgeon Health Status Allergies: Allergic Reactions (Selected) No Known Allergies, Allergies (1) Active Reaction No Known Allergies None Documented Current medications: (Selected) Documented Medications Documented Janumet: 100/1000 mg, Oral, QPM, 0 Refill(s) Lipofen 150 mg oral capsule: 1 Cap, Oral, Daily, 0 Refill(s) Vitamin D2: 50,000 Int Units, Oral, taken twice weekly on Tuesday and Tuesday, 0 Refill(s) aspirin 81 mg oral delayed release tablet: 1 Tab, Oral, Daily, 30 Tab, 0 Refill(s) atorvastatin: 20 mg, Oral, At Bedtime, 0 Refill(s) diclofenac sodium 50 mg oral delayed release tablet: 1 Tab, Oral, BID, 60 Tab, 0 Refill(s), Home Medications (6) Active aspirin 81 mg oral delayed release tablet 81 mg = 1 Tab, Oral, Daily atorvastatin 20 mg, Oral, At Bedtime diclofenac sodium 50 mg oral delayed release tablet 50 mg = 1 Tab, Oral, BID Janumet 100/1000 mg, Oral, QPM Lipofen 150 mg oral capsule 150 mg = 1 Cap, Oral, Daily Vitamin D2 50,000 Int Units, Oral , No qualifying data available Problem list: All Problems Stented coronary artery / SNOMED CT 1771384864 / Confirmed Sleep apnea / SNOMED CT 338022905 / Confirmed Hyperlipidemia / SNOMED CT 99725185 / Confirmed History of obstructive sleep apnea / IMO [id number] / Confirmed Diabetes mellitus type II / SNOMED CT 50285604 / Confirmed Coronary artery disease / SNOMED CT 7711671906 / Confirmed Back pain / SNOMED CT 111920119 / Confirmed Avascular necrosis / SNOMED CT 7726007632 / Confirmed Allergic rhinitis / SNOMED CT 550150381 / Confirmed, Active Problems (9) Allergic rhinitis Avascular necrosis Back pain Coronary artery disease Diabetes mellitus type II History of obstructive sleep apnea Hyperlipidemia Sleep apnea Stented coronary artery neck pain with idalmis UE radiculopathy Histories Past Medical History: No active or resolved past medical history items have been selected or recorded. Family History: No family history items have been selected or recorded. Procedure history: Heart Cath in the month of 12/2013 at 58 Years. Cardiac Stent in the month of 12/2013 at 58 Years. Right Fibula Sx. Fusion C4,5,6. Right Carpal Tunnel. Left finger tendon. CP3 x2. Cholecystectomy. Tonsillectomy. Colonoscopy ([id number]). wisdom teeth removal. right hip replacement. Social History Social & Psychosocial Habits Alcohol 09/26/2020 Alcohol Use History, Social Habits No Alcohol Use in Last Twelve Months No Substance Abuse 09/26/2020 Recreational Drug Use History No Recreational Drug Use Last 12 Months No Tobacco 05/17/2018 Smoking Status Never (less than 100 in l Smokeless Tobacco Status Never . Physical Examination VS/Measurements No qualifying data available General: Alert and oriented, No acute distress. Eye: Pupils are equal, round and reactive to light, Extraocular movements are intact, glasses. HENT: Normocephalic, Normal hearing. Neck: Supple, Non-tender. Respiratory: Lungs are clear to auscultation, Respirations are non-labored. Cardiovascular: Normal rate, Regular rhythm, No murmur, No gallop, No edema. Gastrointestinal: Soft, Non-tender. Genitourinary: No costovertebral angle tenderness. Lymphatics: No lymphadenopathy neck, axilla, groin. Musculoskeletal: painful ROM neck, RUE weakness. Integumentary: Warm, Dry, [place]. Neurologic: Alert, Oriented. Psychiatric: Cooperative, Appropriate mood & affect. Review / Management Results review: Labs (Last four charted values) WBC 7.2 (SEP 29) Hgb 14.2 (SEP 29) Hct 43.5 (SEP 29) Plt H 436 (SEP 29) Na 137 (SEP 29) K 3.9 (SEP 29) CO2 25 (SEP 29) Cl 106 (SEP 29) Cr 1.00 (SEP 29) BUN 12 (SEP 29) Glucose Random H 148 (SEP 29) Ca 9.5 (SEP 29) . Impression and Plan Condition: Stable. documented in this encounter Plan of Treatment Not on file documented as of this encounter Visit Diagnoses Not on filedocumented in this encounter
--- OUTSIDE RECORDS SUMMARY | 2025-02-25 07:55 | XMS_ITS | Encounter Summary ---
Author Organization [employer] ([place], [place], [place], [place]) Address [address] [place] [address] Care Team Providers Care Livestock Nutrition Territory Manager Name Role Phone Unavailable Primary Care Provider Unavailabl e Encounter Details Date Type Department Care Team (Late st Contact Info) Description 10/01/2020 Transcribed Document [facility] [facility] [place] [address] ProviderSharee MD [address], [place] [phone] Social History Tobacco Use Types Packs/Day Years Used Date Smoking Tobacco: Never Assessed Sex and Gender Information Value Date Recorded Sex Assigned at Not on file Legal Sex Male 4:43 PM CDT Gender Identity Not on file Sexual Orientation Not on file documented as of this encounter Miscellaneous Notes * Cerner Conversion Note - Historical ProviderMD - 10/01/2020 10:47 AM 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 Pain Assessment Entered On: 10/01/2020 18:30 EST Performed On: 10/01/2020 11:48 EST by DANITZA VILLAFANA RN Intervention Information: HYDROmorphone Performed by MICHAEL WITT RN on 10/01/2020 11:18:00 EST HYDROmorphone,0.25mg IV Push,Left Hand,Pain (Moderate 4-6) Pain Assessment Pain Assessment : Initial assessment Pain Scale Goal : 2 Pain Scale Used : 0-10 Scale Location : Neck, anterior, Neck, posterior Onset : Acute Quality : Aching Pain Radiation : No Pain Worsened by : Movement Pain Intervention, Non-Drug : Relaxation Pain Improved by Intervention : Yes DANITZA VILLAFANA RN - 10/01/2020 18:29 EST Pain Scale Intensity : 4 DANITZA VILLAFANA RN - 10/01/2020 18:29 EST Image 4 - Images currently included in the form version of this document have not been included in the text rendition version of the form. documented in this encounter Plan of Treatment Not on file documented as of this encounter Visit Diagnoses Not on filedocumented in this encounter
--- OUTSIDE RECORDS SUMMARY | 2025-02-25 07:55 | XMS_ITS | Encounter Summary ---
Author Organization [employer] ([place], [place], [place], [place]) Address [address] [place] [address] Care Team Providers Care Referral And Information Aide Name Role Phone Unavailable Primary Care Provider Unavailabl e Encounter Details Date Type Department Care Team (Late st Contact Info) Description 10/01/2020 Transcribed Document [facility] [place] [facility] [place] [address] ProviderSharee MD [address] [place] [address] Social History Tobacco Use Types Packs/Day Years Used Date Smoking Tobacco: Never Assessed Sex and Gender Information Value Date Recorded Sex Assigned at Not on file Legal Sex Male 4:43 PM CDT Gender Identity Not on file Sexual Orientation Not on file documented as of this encounter Miscellaneous Notes * Cerner Conversion Note - Historical ProviderMD - 10/01/2020 8:00 AM SCALEHOUSE ATTENDANT [facility] Main OR Preop Summary Primary Physician: ANDREW WATSON MD-BETSY Finalized Date/Time: 10/01/20 08:50:03 Pt. Name: WERNER BAEZ D.O.B./Sex: 1955 Male Med Rec #: [id number] Physician: ANDREW WATSON MD-SNU Financial #: [id number] Pt. Type: O Room/Bed: Admit/Disch: 10/01/20 07:57:00 - Institution: [facility] PreOp Case Times Entry 1 In Preop 10/01/20 06:02:00 Ready for Holding n/a Room Patient Ready for 10/01/20 07:52:00 Surgery Patient Out of Preop 10/01/20 08:11:00 Patient Out of n/a Holding Room Last Modified By: Jackie Vilchis RN 10/01/20 08:50:01 [facility] PreOp Case Times Audit 10/01/20 08:50:01 Rim Fire Priming Operator: [email or web address] Modifier: AUGUSTO <+> 1 Patient Out of Preop Finalized By: Jackie Vilchis RN Document Signatures Signed By: Jackie Vilchis RN 10/01/20 08:50 Electronically signed by Enedina [facility] Conversion Rotor Blade Installer Cerner at 11/11/2022 11:45 AM CDT documented in this encounter Plan of Treatment Not on file documented as of this encounter Visit Diagnoses Not on filedocumented in this encounter
--- OUTSIDE RECORDS SUMMARY | 2025-02-25 07:55 | XMS_ITS | Encounter Summary ---
Author Organization [employer] ([place], [place], [place], [place]) Address [address] [place] [address] Care Team Providers Care Cartridge Maker Name Role Phone Unavailable Primary Care Provider Unavailabl e Encounter Details Date Type Department Care Team (Late st Contact Info) Description 10/01/[address] [facility] [place] [facility] [place] [address] ProviderSharee MD [address] [id number] Social History Tobacco Use Types Packs/Day Years Used Date Smoking Tobacco: Never Assessed Sex and Gender Information Value Date Recorded Sex Assigned at Not on file Legal Sex Male 4:43 PM CDT Gender Identity Not on file Sexual Orientation Not on file documented as of this encounter Miscellaneous Notes * Cerner Conversion Note - Historical ProviderMD - 10/01/2020 10:47 AM POLICE COMMANDING OFFICER Pain Assessment Entered On: 10/01/2020 11:15 EST Performed On: 10/01/2020 11:20 EST by MICHAEL WITT RN Intervention Information: [email or web address] Performed by MICHAEL WITT RN on 10/01/2020 10:50:00 EST fentaNYL,25mcg IV Push,Left Hand,Pain (Severe 7-10) Pain Assessment Pain Assessment : Follow-up assessment Pain Scale Goal : 2 Pain Scale Used : 0-10 Scale Location : Neck, posterior MICHAEL WITT RN - 10/01/2020 11:14 EST Pain Scale Intensity : 7 MICHAEL WITT RN - 10/01/2020 11:14 EST Image 4 - Images currently included in the form version of this document have not been included in the text rendition version of the form. documented in this encounter Plan of Treatment Not on file documented as of this encounter Visit Diagnoses Not on filedocumented in this encounter
--- OUTSIDE RECORDS SUMMARY | 2025-02-25 07:55 | XMS_ITS | Encounter Summary ---
Author Organization [employer] ([place], [place], [place], [place]) Address [address] [place] [address] Care Team Providers Care Kiln Operator Helper Name Role Phone Unavailable Primary Care Provider Unavailabl e Encounter Details Date Type Department Care Team (Late st Contact Info) Description 10/02/2020 Transcribed Document [facility] [place] [facility] [place] [address] ProviderSharee MD [address] [place] [place] [id number] Social History Tobacco Use Types Packs/Day Years Used Date Smoking Tobacco: Never Assessed Sex and Gender Information Value Date Recorded Sex Assigned at Not on file Legal Sex Male 4:43 PM CDT Gender Identity Not on file Sexual Orientation Not on file documented as of this encounter Miscellaneous Notes * Cerner Conversion Note - Sharee ProviderMD - 10/02/2020 1:57 PM SOLUTIONS ANALYST Final Discharge Planning Entered On: 10/02/2020 13:58 EST Performed On: 10/02/2020 13:57 EST by GERMAN HAILE RN-French Cord Binder Final Discharge Planning Discharge Arrangements : Patient Post-Acute Information Patient Name: WERNER BAEZ Gender: Male : [birth year] Age: 65 Years No Post-Acute Placement(s) Listed No Post-Acute Service(s) Listed No [place] Referral(s) Listed Important Medicare Message Reviewed With : Other: Commercial Transportation Needs : Family/Friend Follow Up Appointment Scheduled : Yes Is Patient High/Moderate Readmission Risk? : No Patient/Family Notified of Plan : Yes Is Patient Ready for Discharge? : Yes Physician Notified Patient is Ready for Discharge? : Yes Discharge To Care Management : Home/Residential/[facility] or Self Care -01 GERMAN HAILE RN-French Cord Binder - 10/02/2020 13:57 EST documented in this encounter Plan of Treatment Not on file documented as of this encounter Visit Diagnoses Not on filedocumented in this encounter
--- OUTSIDE RECORDS SUMMARY | 2025-02-25 07:55 | XMS_ITS | Referral Summary ---
Author Organization [employer] ([place], [place], [place], [place]) Address [address] [place] [address] Care Team Providers Care Hris Coordinator Name Role Phone Unavailable Primary Care Provider [...]
--- OUTSIDE RECORDS SUMMARY | 2025-02-25 07:55 | XMS_ITS | Encounter Summary ---
Author Organization [facility] ([place], [place], [place], [place]) Address [address] [place] [address] Care Team Providers Care Engine Test Cell Technician Name Role Phone Unavailable Primary Care Provider Unavailabl e Encounter Details Date Type Department Care Team (Late st Contact Info) Description 10/02/[address] 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 [facility] [place], [place] [id number] WERNER BAEZ :1955 Visit Time:10/01/2020 Your Visit Summary Your Care Team Admitting Physician - ANDREW WATSON MD-BETSY Attending Physician - ANDREW WATSON MD-U Primary Care Physician - JAKUB JUSTICE (REF)MD-[facility] [place] Referring Physician - ANDREW WATSON MD-BETSY Your Diagnosis Spinal stenosis in cervical region, Spinal stenosis, cervical region, Spinal stenosis, cervical region What to do next Instructions From Your Care Team Diet after Discharge: Resume usual diet as tolerated Activity after Discharge: As tolerated, No strenuous activity Lifting Restrictions: No heavy lifting over 10 pounds Weight Bearing: Full weight bearing Driving after Discharge: Do not drive Showering/Bathing: May shower, No tub bathing, soaking or swimming; Notify Provider of: Fever above 101 for 24 hours; increase in pain, redness, swelling, drainage or foul odor at incision Wound/Incision Care after Discharge: Keep operative site/wound site clean and dry, Change dressing with dry dressing daily and as needed; may leave open to air when no drainage present; Do not apply any lotions or ointments to incision Medical Equipment for Home Use: Home Health Services: Community Services: STOP taking the following medications: 1. Aspirin - resume in 5 days on 10/06 2. Diclofenac 3. Avoid all Rgot-Vdr-Snkwcqh NSAIDs (Non-Steroidal Anti-Inflammatories) such as Motrin (ibuprofen) and Aleve (naproxen) for 2 months Discharge Activity: don collar when up and about, Discharge Activity: No heavy lifting over 10 lbs Diet: Discharge Diet: Resume usual diet as tolerated Follow-Up Appointments Follow Up with ANDREW WATSON When 11/06/2020 01:00 PM EDT Comments Please go to the [facility] at 12:15 for x-rays before going to your appointment at 1:00. Where: [address] [place] [address] [facility] (1) Medications What How Much When Instructions Next Dose acetaminophen-hydrocodone ([place] 7.5 mg-325 mg oral tablet) 1 Tablet(s) Oral Every 6 Hours as needed for for pain atorvastatin 20 Milligram(s) Oral At Bedtime tonight ergocalciferol (Vitamin D2) 50,000 International Units Oral taken twice weekly on Tuesday and Tuesday10-05-2020 fenofibrate (Lipofen 150 mg oral capsule) 1 Capsule(s) Oral Every Day in am metformin-sitagliptin (Janumet) 100/1000 mg Oral Every Evening tonight Take your medications faithfully. Do NOT skip medication. Do NOT stop taking medications without the direction of a physician. Carry a list of your medications with you at all times, and take this medication list with you to your first follow up visit. Report any side effects. Avoid herbal remedies unless discussed with your physician. As part of your treatment plan, your physician may have prescribed a limited course of a controlled substance. This medication may be given to help people with moderate or severe pain or for other medical conditions, but there are risks involved with treatment. Common side effects may include nausea, constipation, drowsiness, sweating, itching, dry mouth, and rash. More serious side effects may include cognitive and motor impairment, like problems with thinking, concentrating, alertness, and movement (e.g. slowed reflexes), and driving and operating heavy machinery can be dangerous. It is important for you to talk to your physician if you have these side effects or questions. These controlled substances can produce physical dependence and be habit-forming if taken for an extended period of time, which means that the body has gotten used to them and may experience withdrawal symptoms if they are abruptly stopped. Withdrawal symptoms can include runny nose, sweating, goose bumps, diarrhea, abdominal cramping, rapid heartbeat, difficulty sleeping, and nervousness. Please dispose of unused and medications per your retail pharmacy guidance. Allergies No Known Allergies Immunizations This Visit No Immunizations Found Education Materials Anterior Cervical Diskectomy and Fusion, Care After This sheet gives you information about how to care for yourself after your procedure. Your health care provider may also give you more specific instructions. If you have problems or questions, contact your health care provider. What can I expect after the procedure? After the procedure, it is common to have: ??? Neck pain. ??? Discomfort when swallowing. ??? Slight hoarseness. Follow these instructions at home: If you have a neck brace: ??? Wear it as told by your health care provider. Remove it only as told by your health care provider. ??? Keep the brace clean and dry. ??? Ask your health care provider if you should remove the brace to bathe or shower. Incision care ??? Follow instructions from your health care provider about how to take care of your incision. Make sure you: ? Wash your hands with soap and water before and after you change your bandage (dressing). If soap and water are not available, use hand vaccine key customer leader. ? Change your dressing as told by your health care provider. ? Leave stitches (sutures), skin glue, or adhesive strips in place. These skin closures may need to stay in place for 2 weeks or longer. If adhesive strip edges start to loosen and curl up, you may trim the loose edges. Do not remove adhesive strips completely unless your health care provider tells you to do that. ??? Check your incision area every day for signs of infection. Check for: ? Redness, swelling, or pain. ? Fluid or blood. ? Warmth. ? Pus or a bad smell. Managing pain, stiffness, and swelling ??? Take rexg-imf-xhlbtgv and prescription medicines only as told by your health care provider. ??? If directed, put ice on the injured area. ? If you have a removable brace, remove it as told by your health care provider. ? Put ice in a plastic bag. ? Place a towel between your skin and the bag. ? Leave the ice on for 20 minutes, 2???3 times a day. Activity ??? Return to your normal activities as told by your health care provider. Ask your health care provider what activities are safe for you. ??? Do exercises as told by your health care provider. ??? Do not take baths, swim, or use a hot tub until your health care provider approves. ??? Do not lift anything that is heavier than 10 lb (4.5 kg), or the limit that you are told, until your health care provider says that it is safe. General instructions ??? Ask your health care provider if the medicine prescribed to you: ? Requires you to avoid driving or using heavy machinery. ? Can cause constipation. You may need to take actions to prevent or treat constipation, such as: ? Drink enough fluid to keep your urine pale yellow. ? Take mosk-vqs-giyohcx or prescription medicines. ? Eat foods that are high in fiber, such as beans, whole grains, and fresh fruits and vegetables. ? Limit foods that are high in fat and processed sugars, such as fried and sweet foods. ??? Do not use any products that contain nicotine or tobacco, such as cigarettes, e-cigarettes, and chewing tobacco. These can delay healing. If you need help quitting, ask your health care provider. ??? Keep all follow-up visits and physical therapy appointments as told by your health care provider. This is important. Contact a health care provider if you have: ??? A fever. ??? Redness, swelling, or pain around your incision. ??? Fluid or blood coming from your incision. ??? Pus or a bad smell coming from your incision. ??? Pain that is not controlled by your pain medicine. ??? Increasing hoarseness or trouble swallowing. Get help right away if you have: ??? Severe pain. ??? Sudden numbness or weakness in your arms. ??? Warmth, tenderness, or swelling in your calf. ??? Chest pain. ??? Difficulty breathing. Summary ??? After the procedure, it is common to have neck pain, discomfort when swallowing, and slight hoarseness. ??? Follow instructions from your health care provider about how to take care of your incision. ??? Check your incision area every day for signs of infection. ??? Return to your normal activities as told by your health care provider. Ask your health care provider what activities are safe for you. ??? Contact a health care provider if you have signs of infection at your incision. This information is not intended to replace advice given to you by your health care provider. Make sure you discuss any questions you have with your health care provider. Document Released: 08/06/2016 Document Revised: 04/05/2019 Document Reviewed: 04/05/2019 [employer] Patient Education ?? 2020 [employer]. acetaminophen and hydrocodone (a SEET a MIN oh fen and yuri FIGUEROA done) Hycet, Lorcet, [place], Verdrocet, Vicodin, Xodol, Zamicet What is the most important information I should know about acetaminophen and hydrocodone? MISUSE OF OPIOID MEDICINE CAN CAUSE ADDICTION, OVERDOSE, OR . Keep the medication in a place where others cannot get to it. Taking opioid medicine during may cause life-threatening withdrawal symptoms in the . Fatal side effects can occur if you use opioid medicine with alcohol, or with other drugs that cause drowsiness or slow your breathing. Stop taking this medicine and call your doctor right away if you have skin redness or a rash that spreads and causes blistering and peeling. What is acetaminophen and hydrocodone? Acetaminophen and hydrocodone is a combination medicine used to relieve moderate to severe pain. Acetaminophen and hydrocodone contains an opioid medicine, and may be habit-forming. Acetaminophen and hydrocodone may also be used for purposes not listed in this medication guide. What should I discuss with my healthcare provider before taking acetaminophen and hydrocodone? You should not use this medicine if you are allergic to acetaminophen or hydrocodone, or if you have: ?? severe asthma or breathing problems; or ?? a blockage in your stomach or intestines. Tell your doctor if you have ever had: ?? breathing problems, sleep apnea (breathing stops during sleep); ?? liver disease; ?? a drug or alcohol addiction; ?? kidney disease; ?? a head injury or seizures; ?? urination problems; or ?? problems with your thyroid, pancreas, or gallbladder. If you use opioid medicine while you are , your baby could become dependent on the drug. This can cause life-threatening withdrawal symptoms in the baby after it is born. Babies born dependent on opioids may need medical treatment for several weeks. Ask a doctor before using opioid medicine if you are . Tell your doctor if you notice severe drowsiness or slow breathing in the nursing baby. How should I take acetaminophen and hydrocodone? Follow all directions on your prescription label. Never take this medicine in larger amounts, or for longer than prescribed. An overdose can damage your liver or cause . Tell your doctor if you feel an increased urge to use more of this medicine. Never share this medicine with another person, especially someone with a history of drug abuse or addiction. MISUSE CAN CAUSE ADDICTION, OVERDOSE, OR . Keep the medicine in a place where others cannot get to it. Selling or giving away this medicine is against the law. Measure liquid medicine carefully. Use the dosing syringe provided, or use a medicine dose-measuring device (not a kitchen spoon). If you need surgery or medical tests, tell the doctor ahead of time that you are using this medicine. You should not stop using this medicine suddenly. Follow your doctor's instructions about tapering your dose. Store at room temperature away from moisture and heat. Keep track of your medicine. You should be aware if anyone is using it improperly or without a prescription. Do not keep leftover opioid medication. Just one dose can cause in someone using this medicine accidentally or improperly. Ask your pharmacist where to locate a drug take-back disposal program. If there is no take-back program, flush the unused medicine down the toilet. What happens if I miss a dose? Since this medicine is used for pain, you are not likely to miss a dose. Skip any missed dose if it is almost time for your next dose. Do not use two doses at one time. What happens if I overdose? Seek emergency medical attention or call the Poison Help line at . An overdose of this medicine can be fatal, especially in a child or other person using the medicine without a prescription. Overdose symptoms may include nausea, vomiting, sweating, severe drowsiness, pinpoint pupils, slow breathing, or no breathing. Your doctor may recommend you get naloxone (a medicine to reverse an opioid overdose) and keep it with you at all times. A person caring for you can give the naloxone if you stop breathing or don't wake up. Your caregiver must still get emergency medical help and may need to perform CPR (cardiopulmonary resuscitation) on you while waiting for help to arrive. Anyone can buy naloxone from a pharmacy or local health department. Make sure any person caring for you knows where you keep naloxone and how to use it. What should I avoid while taking acetaminophen and hydrocodone? Avoid driving or operating machinery until you know how this medicine will affect you. Dizziness or drowsiness can cause falls, accidents, or severe injuries. Do not drink alcohol. Dangerous side effects or could occur. Ask a doctor or pharmacist before using any other medicine that may contain acetaminophen (sometimes abbreviated as APAP). Taking certain medications together can lead to a fatal overdose. What are the possible side effects of acetaminophen and hydrocodone? Get emergency medical help if you have signs of an allergic reaction: hives; difficulty breathing; swelling of your face, lips, tongue, or throat. Opioid medicine can slow or stop your breathing, and may occur. A person caring for you should give naloxone and/or seek emergency medical attention if you have slow breathing with long pauses, blue colored lips, or if you are hard to wake up. In rare cases, acetaminophen may cause a severe skin reaction that can be fatal. This could occur even if you have taken acetaminophen in the past and had no reaction. Stop taking this medicine and call your doctor right away if you have skin redness or a rash that spreads and causes blistering and peeling. Call your doctor at once if you have: ?? noisy breathing, sighing, shallow breathing, breathing that stops; ?? a light-headed feeling, like you might pass out; ?? liver problems--nausea, upper stomach pain, tiredness, loss of appetite, dark urine, lauren-colored stools, jaundice (yellowing of the skin or eyes); ?? low cortisol levels-- nausea, vomiting, loss of appetite, dizziness, worsening tiredness or weakness; o ?? high levels of serotonin in the body--agitation, hallucinations, fever, sweating, shivering, fast heart rate, muscle stiffness, twitching, loss of coordination, nausea, vomiting, diarrhea. Serious breathing problems may be more likely in older adults and in those who are debilitated or have wasting syndrome or chronic breathing disorders. Common side effects include: ?? dizziness, drowsiness, feeling tired; ?? nausea, vomiting, stomach pain; ?? constipation; or ?? headache. This is not a complete list of side effects and others may occur. Call your doctor for medical advice about side effects. You may report side effects to FDA at 3-396-CNK-6658. What other drugs will affect acetaminophen and hydrocodone? You may have breathing problems or withdrawal symptoms if you start or stop taking certain other medicines. Tell your doctor if you also use an antibiotic, antifungal medication, heart or blood pressure medication, seizure medication, or medicine to treat HIV or hepatitis C. Opioid medication can interact with many other drugs and cause dangerous side effects or . Be sure your doctor knows if you also use: ?? cold or allergy medicines, bronchodilator asthma/COPD medication, or a diuretic ('water pill'); ?? medicines for motion sickness, irritable bowel syndrome, or overactive bladder; ?? other opioids--opioid pain medicine or prescription cough medicine; ?? a sedative like Valium--diazepam, alprazolam, lorazepam, Xanax, Klonopin, Versed, and others; ?? drugs that make you sleepy or slow your breathing--a sleeping pill, muscle relaxer, medicine to treat mood disorders or mental illness; ?? drugs that affect serotonin levels in your body--a stimulant, or medicine for depression, Parkinson's disease, migraine headaches, serious infections, or nausea and vomiting. This list is not complete. Other drugs may affect acetaminophen and hydrocodone, including prescription and pyxq-ozx-gwvwgtj medicines, vitamins, and herbal products. Not all possible interactions are listed here. Where can I get more information? Your doctor or pharmacist can provide more information about acetaminophen and hydrocodone. Remember, keep this and all other medicines out of the reach of children, never share your medicines with others, and use this medication only for the indication prescribed. Every effort has been made to ensure that the information provided by [employer] is accurate, up-to-date, and complete, but no guarantee is made to that effect. Drug information contained herein may be time sensitive. [employer] information has been compiled for use by healthcare practitioners and consumers in the [place] and therefore [employer] does not warrant that uses outside of the [place] are appropriate, unless specifically indicated otherwise. [employer] drug information does not endorse drugs, diagnose patients or recommend therapy. [employer] drug information is an informational resource designed to assist licensed healthcare practitioners in caring for their patients and/or to serve consumers viewing this service as a supplement to, and not a substitute for, the expertise, skill, knowledge and judgment of healthcare practitioners. The absence of a warning for a given drug or drug combination in no way should be construed to indicate that the drug or drug combination is safe, effective or appropriate for any given patient. [employer] does not assume any responsibility for any aspect of healthcare administered with the aid of information [employer] provides. The information contained herein is not intended to cover all possible uses, directions, precautions, warnings, drug interactions, allergic reactions, or adverse effects. If you have questions about the drugs you are taking, check with your doctor, nurse or pharmacist. Copyright 5356-6313 [employer]. Version: 16.03. Revision Date: 08/26/2020. Emergency Awareness and Preventative Care STROKE is an EMERGENCY Every Minute Counts Act FAST and Check for these signs: FACE Does the face look uneven? ARM Does one arm drift down? SPEECH Does their speech sound strange? TIME Call at any sign of stroke Stroke Risk Factors Atrial Fibrillation (irregular heartbeat) Diabetes Family history of stroke Heart Disease Heavy alcohol use High Blood Pressure High Cholesterol Physical inactivity and obesity Smoking Cigarette Smoking The facts are clear, cigarette smoking will shorten your life. Smoking can cause many illnesses along the way. As a healthcare provider, we recommend that you stop smoking. Assistance with quitting is available by contacting 5-251-UXTF-NOW. This is a free resource providing counseling, support, and referral. Or you may contact your personal physician. National Suicide Prevention Lifeline: The National Suicide Prevention Lifeline is a national network of local crisis centers that provides free and confidential emotional support to people in suicidal crisis or emotional distress 24 hours a day, 7 days a week. Don't Wait! Stop a Heart Attack Before it Starts What is a heart attack? A heart attack is damage or to a part of the heart from severely decreased or lack of blood flow to the heart. Over time, arteries can become narrow from the buildup of fat and cholesterol, which is called plaque. The plaque can rupture causing a blood clot to form. When the blood clot forms, the artery can become severely narrowed or completely blocked, causing a heart attack. Heart attack is the leading cause of in the [place]. 85% of muscle damage occurs within the first 2 hours. Delay in the recognition of heart attack symptoms increases the chances of . Know the early symptoms of a heart attack: Nausea Feeling of fullness in chest Jaw Pain Pain that travels down one or both arms Fatigue/being tired Anxiety Back Pain Chest pressure, squeezing, or discomfort Shortness of breath Sweating, or a cold sweat Feeling of impending doom There are unusual signs of a heart attack, too! Women, the elderly, and diabetics may present with atypical symptoms: Fainting/dizziness Weakness Confusion Risk Factors for a Heart Attack Some heart disease risk factors, such as age and family history, cannot be changed. Others, like smoking and lack of exercise, can be changed. Smoking High Cholesterol High Blood Pressure Family History Obesity Age Gender (Males are at higher risk) Lack of Exercise Diabetes Diet Stress Excessive Alcohol Intake If you or someone you know is experiencing the signs and symptoms of a heart attack, DON???T DELAY. Call immediately and seek help. If someone collapses, perform CPR! Do not attempt to drive if you are having symptoms of heart attack. Hands-Only CPR Why Hands-Only CPR? Hands-Only CPR has been shown to be as effective as conventional CPR for cardiac arrests that occur outside of a hospital. Survival depends on immediately receiving CPR from someone nearby. How do you perform Hands-Only CPR? There are two easy steps: Call if you see a teen or adult collapse Push hard and fast in the center of the chest at a beat of 100 beats per minute. Save a life! 4 WAYS TO GET AHEAD OF SEPSIS SEPSIS is a MEDICAL EMERGENCY. Time matters! Infections put you and your family at risk for a life-threatening condition called sepsis. Sepsis is the body's extreme response to an infection. It is life-threatening, and without timely treatment, sepsis can rapidly lead to tissue damage, organ failure, and . Sepsis happens when an infection you already have-in your skin, lungs, urinary tract or somewhere else-triggers a chain reaction throughout your body. 1 PREVENT INFECTIONS Take good care of chronic conditions. Talk to your doctor about getting the recommended vaccines. 2 PRACTICE GOOD HYGIENE Wash your hands frequently. Keep cuts or open sores clean and covered until they are healed. 3 KNOW THE SYMPTOMS Confusion or disorientation Shortness of breath High heart rate Fever, shivering, or feeling very cold Extreme pain or discomfort Clammy or sweaty skin 4 ACT FAST Get medical care IMMEDIATELY if you suspect sepsis or if you have an infection that is not getting better or is getting worse. To learn more about sepsis and how to prevent infections, visit www.cdc.gov/sepsis. Test Results Laboratory or Other Results This Visit (last charted value for your 10/01/2020 visit) Hematology 09/29/2020 8:52 AM WBC: 7.2 K/uL -- Normal range between ( 3.6 and 9.5 ) RBC: 4.84 Million/uL -- Normal range between ( 4.20 and 5.70 ) Hct: 43.5 % -- Normal range between ( 40.1 and 51.0 ) Hgb: 14.2 g/dL -- Normal range between ( 13.5 and 17.3 ) Platelet Count: 436 K/uL -- Normal range between ( 163 and 369 ) MCH: 29.3 pg -- Normal range between ( 25.6 and 32.2 ) MCHC: 32.6 Gram/dL -- Normal range between ( 32.2 and 36.5 ) MCV: 89.9 fL -- Normal range between ( 79.0 and 94.8 ) Slide Review: No RDW: 13.2 % -- Normal range between ( 11.7 and 14.9 ) MPV: 8.5 fL -- Normal range between ( 9.4 and 12.4 ) Urinalysis 09/29/2020 8:52 AM Urine Nitrite: Negative Urine Leukocyte Esterase: Negative Urine Appearance: Clear Urine Glucose Dipstick: Negative Urine Blood Dipstick: Negative Urine Urobilinogen Dipstick: 0.2 EU/dL Urine Protein Dipstick: Negative Urine Color: Yellow Urine Ketones Dipstick: Negative Urine pH Dipstick: 6.0 -- Normal range between ( 6.0 and 8.0 ) Urine Bilirubin Dipstick: Negative Urine Specific [place]: 1.007 -- Normal range between ( 1.005 and 1.030 ) Urine Type.: U CleanCatch Urine Culture if Indicated: Not Indicated Microbiology 09/29/2020 10:30 AM SARS-CoV-2 (COVID19 PCR): Negative Blood Bank 10/01/2020 7:45 AM ABO/Rh (ECHO): A POS Antibody Screen: Negative ABSC 09/29/2020 8:52 AM ABO/Rh Repeat: A POS General Chemistry 10/02/2020 10:42 AM Glucose POC2: 164 mg/dL -- Normal range between ( 70 and 110 ) Device Comment 1: Device Comment 1 09/29/2020 8:52 AM Creatinine Level: 1.00 mg/dL -- Normal range between ( 0.70 and 1.30 ) Sodium Level: 137 mmol/L -- Normal range between ( 136 and 146 ) Potassium Level: 3.9 mmol/L -- Normal range between ( 3.5 and 5.1 ) Chloride Level: 106 mmol/L -- Normal range between ( 102 and 112 ) Carbon Dioxide Level: 25 mmol/L -- Normal range between ( 21 and 32 ) Anion Gap: 10 -- Normal range between ( 9 and 20 ) Bun/Creatinine: 12.0 -- Normal range between ( 8.0 and 20.0 ) Calcium Level: 9.5 mg/dL -- Normal range between ( 8.4 and 10.1 ) eGFR : >60 mL/min/1.73m2 eGFR NonAfrican: >60 mL/min/1.73m2 Glucose Level: 148 mg/dL -- Normal range between ( 74 and 106 ) Blood Urea Nitrogen: 12 mg/dL -- Normal range between ( 7 and 22 ) Diagnostic Radiology 10/01/2020 10:30 AM CR Fluoro in OR: CR Fluoro in OR Patient Name:WERNER BAEZ I have received and understand this information and was given the opportunity to ask questions. Patient/Mechanical Specialist Name: Patient/Mechanical Specialist Signature: Relationship to Patient: Clinician/Hospital Mechanical Specialist Signature: Date: documented in this encounter Plan of Treatment Not on file documented as of this encounter Visit Diagnoses Not on filedocumented in this encounter
--- OUTSIDE RECORDS SUMMARY | 2025-02-25 07:55 | XMS_ITS | Encounter Summary ---
Author Organization [facility] ([place], [place], [place], [place]) Address [address] [place] [address] Care Team Providers Care Lead Enterprise Architect Name Role Phone Unavailable Primary Care Provider Unavailabl e Encounter Details Date Type Department Care Team (Late st Contact Info) Description 10/02/[address] [facility] [place] Family Medicine [facility] [place] [address] ProviderSharee MD [address] [place], [place] [id number] Social History Tobacco Use Types Packs/Day Years Used Date Smoking Tobacco: Never Assessed Sex and Gender Information Value Date Recorded Sex Assigned at Not on file Legal Sex Male 4:43 PM CDT Gender Identity Not on file Sexual Orientation Not on file documented as of this encounter Miscellaneous Notes * Cerner Conversion Note - Historical ProviderMD - 10/02/2020 1:15 PM INFORMATICS NURSE SPECIALIST Attempt to Treat, PT Entered On: 10/02/2020 13:16 EST Performed On: 10/02/2020 13:15 EST by GIO MONTIEL PT Attempt to Treat Unable to Treat Due To : Patient Refusal Inability to Treat Comment : The patient states that he has been up walking and does not wish to do so at this time. Notification : ELISABETH Pierre MARK, PT - 10/02/2020 13:15 EST documented in this encounter Plan of Treatment Not on file documented as of this encounter Visit Diagnoses Not on filedocumented in this encounter
--- OUTSIDE RECORDS SUMMARY | 2025-02-25 07:55 | XMS_ITS | Encounter Summary ---
Author Organization [employer] ([place], [place], [place], [place]) Address [address] [place] [address] Care Team Providers Care Epoxy Specialist Name Role Phone Unavailable Primary Care Provider Unavailabl e Encounter Details Date Type Department Care Team (Late st Contact Info) Description 09/26/2020 Transcribed Document [facility] [place] Family Medicine [facility] [place] [address] ProviderSharee MD [address] [id number] Social History Tobacco Use Types Packs/Day Years Used Date Smoking Tobacco: Never Assessed Sex and Gender Information Value Date Recorded Sex Assigned at Not on file Legal Sex Male 4:43 PM CDT Gender Identity Not on file Sexual Orientation Not on file documented as of this encounter Miscellaneous Notes * Cerner Conversion Note - Historical ProviderMD - 09/26/2020 9:25 AM WAFER FAB OPERATOR PAT Adult Entered On: 09/26/2020 9:26 EST Performed On: 09/26/2020 9:25 EST by Jason Martinez Rn Vital Measurements Temperature Source : Temporal artery scanning Temperature Mode : Fahrenheit Temperature, Fahrenheit : 97.7 Deg F Clinical Temperature, C : 36.5 Deg C Peripheral Pulse Rate : 70 bpm Respiratory Rate : 18 Breaths/Min Blood Pressure Location : Arm, right upper Blood Pressure Source : Non-Invasive BP Device Systolic Blood Pressure : 180 mmHg (HI) Diastolic Blood Pressure : 93 mmHg (HI) Oxygen Saturation : 99 % Oxygen Therapy Mode : Room air MOO MATIAS RN - 09/29/2020 8:42 EST Pain Assessment Pain Scale Goal : 2 MOO MATIAS RN - 09/29/2020 8:54 EST Height and Weight, Clinical Dosing Height Source : Measured Height Entry Format : [place] Height, Feet : 0 ft(Converted to: 0 cm, 0 Inch) Height, Inches : 71 Inch(Converted to: 5 ft 11 Inch, 180.34 cm) Clinical Height : 180.34 cm Weight Source : Standing scale Weight Entry Format : [place] Clinical Dosing Weight : 82.27 kg Weight, Pounds : 181.0 lb Body Surface Area (BSA) : 2.02 m2 Body Mass Index : 25.3 kg/m2 (HI) [place] Body Weight : 74 kg MOO MATIAS RN - 09/29/2020 8:42 EST Health Histories Smoking Status : Never (less than 100 in lifetime; none in last 30 days) Smokeless Tobacco Status : Never Implant/Device Type, Dry Starch Supervisor and Model : right hip replacement hardware in spine Jason Martinez Rn - 09/26/2020 9:25 EST Social History (As Of: 09/26/2020 09:29:38 EST) Tobacco: Never (less than 100 in lifetime) Smoking Status. Never Smokeless Tobacco Status. (Last Updated: 05/17/2018 08:42:07 EDT by MOO MATIAS RN) Alcohol: Alcohol Use History No. Use in Last 12 Months: No. (Last Updated: 09/26/2020 09:25:53 EST by Jason Martinez, Luis Angel) Substance Abuse: Drug Use Hx: No. Use in Last 12 Months: No. (Last Updated: 09/26/2020 09:25:53 EST by Jason Martinez, Rn) Infectious Disease History Has the patient ever [...] in the last 30 days : No Tuberculosis Symptoms : None MOO MATIAS RN - 09/29/2020 8:54 EST Infectious Disease History : Chicken pox/Shingles Jason Martinez Rn - 09/26/2020 9:26 EST COVID19 PreProcedure Screening Is this an Emergent or Add on Procedure? : No Date PreProcedure COVID-19 test known? : Yes Date of PreProcedure COVID-19 : 09/29/2020 EST Has patient been isolated since the test : Yes Exposed to COVID19 symptoms since test? : No Jackie Vilchis RN - 10/01/2020 7:24 EST Anesthesia/Transfusion History Family History of Anesthesia Reaction : No prior transfusion(s) Blood Transfusion Acceptable to Patient : Yes Transfusion History : Prior anesthesia reaction Type of Anesthesia Reaction : Excessive somnolence Family History of Anesthesia Reaction : None Jason Martinez Rn - 09/26/2020 9:26 EST Functional Assessment Functional ADL Evaluation Index EBN Bathing : Independent (2) Dressing : Independent (2) Toileting : Independent (2) Transferring Bed or Chair : Independent (2) Continence : Independent (2) Feeding : Independent (2) Jason Martinez Rn - 09/26/2020 9:26 EST ADL Index Score : 12 Jason Martinez Rn - 09/26/2020 9:26 EST Advance Directive Copy Advance Directive Verified/on Chart : Yes MOO MATIAS RN - 09/29/2020 8:54 EST Patient has Advance Directive *Q : Yes, Advance Directive on file Advance Directive Type : Living will Jason Martinez Rn - 09/26/2020 9:26 EST Spiritual/Cultural Needs Significant Loss/Crisis in Past 3 Years : No Jason Martinez Rn - 09/26/2020 9:26 EST [place] Suicide Severity Rating Scale (C-SSRS) CSSRS Past Month Wish to be : No CSSRS Past Month Suicidal Thoughts : No CSSRS Lifetime Suicide Behavior : No Suicide Severity Rating Score : 0 Suicide Severity Rating : No Additional Care Required at this time Jason Martinez Rn - 09/26/2020 9:26 EST Psychosocial History Do You Have a History of the Following? : Patient denies history Currently in Unsafe Situation : No Jason Martinez Rn - 09/26/2020 9:26 EST Teaching/Learning Assessment Individuals Taught : Patient Readiness to Learn : Cooperative Readiness to Learn : Explanation, Printed materials MOO MATIAS RN - 09/29/2020 8:54 EST Education Topics, Periop Preadmission Perioperative Education Grid Arrival Time/Place : Verbalizes understanding CHG Preoperative Bathing/Cloths : Verbalizes understanding Falls : Verbalizes understanding Infection Control : Verbalizes understanding IV's : Verbalizes understanding NPO Status/Directions : Verbalizes understanding Pain Management : Verbalizes understanding Preprocedure Preparations : Verbalizes understanding Preprocedure Tests/Labs : Verbalizes understanding Remove Body Piercings : Verbalizes understanding Responsible Adult : Verbalizes understanding Take/Hold Medications Pre-Procedure : Verbalizes understanding Other : Verbalizes understanding (Comment: use of bactroban nasal ointment [MOO MATIAS RN - 09/29/2020 8:54 EST] ) Responsible Adult Contact Information : Hortencia Baez, spouse, MOO MATIAS RN - 09/29/2020 8:54 EST General Info Objects to Sharing Info w Family : No MOO MATIAS RN - 09/29/2020 9:06 EST Preferred Name : Will Mode of Arrival on Unit : Ambulatory Support Person/Patient Cascara Bark Cutter : Yes Support Person/Pt Rep Name : Hortencia Baez - Support Person/Pt Rep Contact Information : [phone] Want Family/Rep/Phys Notified of Admit : No Jason Martinez Rn - 09/26/2020 9:26 EST Emergency Contact #1 : `Hortencia Baez Emergency Contact #1 ` Emergency Contact #1 Relationship : spouse` MOO MATIAS RN - 09/29/2020 9:06 EST Emergency Contact #2 : ` Emergency Contact #2 Phone Number : ` Emergency Contact #2 Relationship : ` Information Obtained From : Patient Primary Language : Luxembourgish Preferred Communication Mode : Verbal Communication Barrier : None Tip Cutter Needed : No Jason Martinez Rn - 09/26/2020 9:26 EST Todd Scale Todd Sensory Perception : No impairment Todd Moisture : Rarely moist Todd Activity : Walks frequently Todd Mobility : No limitation Todd Nutrition : Adequate Todd Friction and Shear : No apparent problem Todd Score : 22 Jason Martinez Rn - 09/26/2020 9:26 EST Sleep Apnea Risk Assmt BiPAP/CPAP Ordered for Home Use : No Sleep Apnea Risk Comment : had UPPP surgery Hx of Obstructive Sleep Apnea Diagnosis : Yes MOO MATIAS RN - 09/29/2020 8:54 EST Age over 50 Years Old : Yes Gender Male : Yes Jason Martinez Rn - 09/26/2020 9:26 EST documented in this encounter Plan of Treatment Not on file documented as of this encounter Visit Diagnoses Not on filedocumented in this encounter
--- OUTSIDE RECORDS SUMMARY | 2025-02-25 07:55 | XMS_ITS | Encounter Summary ---
Author Organization [facility] ([place], [place], [place], [place]) Address [address] [place] [address] Care Team Providers Care Sensitized Paper Tester Name Role Phone Unavailable Primary Care Provider Unavailabl e Encounter Details Date Type Department Care Team (Late st Contact Info) Description 10/01/2020 Transcribed Document [facility] [place] [address] ProviderSharee MD [address] [place] [address] Social History Tobacco Use Types Packs/Day Years Used Date Smoking Tobacco: Never Assessed Sex and Gender Information Value Date Recorded Sex Assigned at Not on file Legal Sex Male 4:43 PM CDT Gender Identity Not on file Sexual Orientation Not on file documented as of this encounter Miscellaneous Notes * Cerner Conversion Note - Historical ProviderMD - 10/01/2020 8:50 AM HEALTH PLAN ADVISOR [facility] Main OR IntraOp Summary Primary Physician: ANDREW WATSON MD-SNU Finalized Date/Time: 10/02/20 13:03:11 Pt. Name: ALESHA BAEZO.B./Sex: 1955 Male Med Rec #: [id number] Physician: ANDREW WATSON MD-SNU Financial #: [id number] Pt. Type: O Room/Bed: [facility] Admit/Disch: 10/01/20 07:57:00 - Institution: [facility] IntraOp Case Attendance Entry 1 Entry 2 Entry 3 Case Attendee ANDREW WATSON Byrd, Charlie D, RN LONG, PAULA R., ST MD-SNU Role Performed Surgeon/Proceduralist, Benefits Analyst, First Scrub, First First Time In 10/01/20 08:14:00 10/01/20 08:14:00 10/01/20 08:14:00 Time Out 10/01/20 10:25:00 10/01/20 10:25:00 10/01/20 10:25:00 Procedure Cervical Discectomy Cervical Discectomy Cervical Discectomy Fusion Anterior, Fusion Anterior, Fusion Anterior, Hardware Removal Spine Hardware Removal Spine Hardware Removal Spine Other Attendee Superficial Wound Closed By: Last Modified By: Az Stack, Az Grace, Az Grace, RN 10/01/20 10:25:15 10/01/20 10:25:15 10/01/20 10:25:15 Entry 4 Entry 5 Entry 6 Case Attendee ROSALINDA WAITE SANDRA D, Lucia Ferrari, GLASS PRESSER Role Performed Physician middle school assistant principal Benefits Analyst, First GLASS PRESSER/Nurse Peoplesoft Functional Analyst Time In 10/01/20 08:14:00 10/01/20 08:35:00 10/01/20 08:14:00 Time Out 10/01/20 10:25:00 10/01/20 08:45:00 10/01/20 10:25:00 Procedure Cervical Discectomy Cervical Discectomy Cervical Discectomy Fusion Anterior, Fusion Anterior, Fusion Anterior, Hardware Removal Spine Hardware Removal Spine Hardware Removal Spine Other Attendee RN BREAK RELIEF Superficial Wound Closed By: Last Modified By: Az Stack, Az Grace, Az Grace, RN 10/01/20 10:25:15 10/01/20 08:41:41 10/01/20 10:25:15 Entry 7 Entry 8 Entry 9 Case Attendee Cely Barone, OTHER, ATTENDEE #1 SUKHDEV JETT MD-BHAVANA Diagnostic Certified Health Education Specialist Role Performed Shade Cloth Finisher Vendor Anesthesiologist of Record Time In 10/01/20 08:14:00 10/01/20 08:14:00 10/01/20 08:14:00 Time Out 10/01/20 10:25:00 10/01/20 10:25:00 10/01/20 10:25:00 Procedure Cervical Discectomy Cervical Discectomy Cervical Discectomy Fusion Anterior, Fusion Anterior, Fusion Anterior, Hardware Removal Spine Hardware Removal Spine Hardware Removal Spine Other Attendee NILES TADEO Superficial Wound Closed By: Last Modified By: Az Stack, Az Grace RN Byrd, Charlie D, RN 10/01/20 10:25:15 10/01/20 08:53:48 10/01/20 10:25:15 [facility] IntraOp Case Attendance Audit 10/01/20 10:25:15 Program Aide Group Work: PHONG Modifier: [email or web address] 1 <+> Time Out 1 <*> Procedure Cervical Discectomy Fusion Anterior, Hardware Removal Spine 2 <+> Time Out 2 <*> Procedure Cervical Discectomy Fusion Anterior, Hardware Removal Spine 3 <+> Time Out 3 <*> Procedure Cervical Discectomy Fusion Anterior, Hardware Removal Spine 4 <+> Time Out 4 <*> Procedure Cervical Discectomy Fusion Anterior, Hardware Removal Spine 5 <*> Procedure Cervical Discectomy Fusion Anterior, Hardware Removal Spine 6 <+> Time Out 6 <*> Procedure Cervical Discectomy Fusion Anterior, Hardware Removal Spine 7 <+> Time Out 7 <*> Procedure Cervical Discectomy Fusion Anterior, Hardware Removal Spine 8 <+> Time Out 8 <*> Procedure Cervical Discectomy Fusion Anterior, Hardware Removal Spine 9 <+> Time Out 9 <*> Procedure Cervical Discectomy Fusion Anterior, Hardware Removal Spine 10/01/20 08:57:50 Program Aide Group Work: [email or web address] Modifier: [email or web address] 1 <*> Procedure Cervical Discectomy Fusion Anterior, Hardware Removal Spine 2 <*> Procedure Cervical Discectomy Fusion Anterior, Hardware Removal Spine 3 <*> Procedure Cervical Discectomy Fusion Anterior, Hardware Removal Spine 4 <*> Procedure Cervical Discectomy Fusion Anterior, Hardware Removal Spine 5 <*> Procedure Cervical Discectomy Fusion Anterior, Hardware Removal Spine 6 <*> Procedure Cervical Discectomy Fusion Anterior, Hardware Removal Spine 7 <*> Procedure Cervical Discectomy Fusion Anterior, Hardware Removal Spine 8 <*> Procedure Cervical Discectomy Fusion Anterior, Hardware Removal Spine 9 <+> Time In 9 <*> Procedure Cervical Discectomy Fusion Anterior, Hardware Removal Spine 10/01/20 08:56:46 Program Aide Group Work: [email or web address] Modifier: [email or web address] 1 <*> Procedure Cervical Discectomy Fusion Anterior, Hardware Removal Spine 2 <*> Procedure Cervical Discectomy Fusion Anterior, Hardware Removal Spine 3 <*> Procedure Cervical Discectomy Fusion Anterior, Hardware Removal Spine 4 <*> Procedure Cervical Discectomy Fusion Anterior, Hardware Removal Spine 5 <*> Procedure Cervical Discectomy Fusion Anterior, Hardware Removal Spine 6 <*> Procedure Cervical Discectomy Fusion Anterior, Hardware Removal Spine 7 <*> Procedure Cervical Discectomy Fusion Anterior, Hardware Removal Spine 8 <+> Time In 8 <*> Procedure Cervical Discectomy Fusion Anterior, Hardware Removal Spine <+> 9 Case Attendee <+> 9 Role Performed <+> 9 Procedure 10/01/20 08:53:48 Program Aide Group Work: [email or web address] Modifier: [email or web address] 1 <*> Procedure Cervical Discectomy Fusion Anterior, Hardware Removal Spine 2 <*> Procedure Cervical Discectomy Fusion Anterior, Hardware Removal Spine 3 <*> Procedure Cervical Discectomy Fusion Anterior, Hardware Removal Spine 4 <*> Procedure Cervical Discectomy Fusion Anterior, Hardware Removal Spine 5 <*> Procedure Cervical Discectomy Fusion Anterior, Hardware Removal Spine 6 <+> Time In 6 <*> Procedure Cervical Discectomy Fusion Anterior, Hardware Removal Spine 7 <+> Time In 7 <*> Procedure Cervical Discectomy Fusion Anterior, Hardware Removal Spine <+> 8 Case Attendee <+> 8 Role Performed <+> 8 Procedure <+> 8 Other Attendee 10/01/20 08:43:27 Program Aide Group Work: [email or web address] Modifier: [email or web address] <+> 6 Case Attendee <+> 6 Role Performed <+> 6 Procedure <+> 7 Case Attendee <+> 7 Role Performed <+> 7 Procedure 10/01/20 08:41:41 Program Aide Group Work: [email or web address] Modifier: [email or web address] <+> 5 Case Attendee <+> 5 Role Performed <+> 5 Time In <+> 5 Time Out <+> 5 Procedure <+> 5 Other Attendee 10/01/20 08:34:50 Program Aide Group Work: [email or web address] Modifier: [email or web address] 1 <+> Time In 1 <*> Procedure Cervical Discectomy Fusion Anterior, Hardware Removal Spine 2 <+> Time In 2 <*> Procedure Cervical Discectomy Fusion Anterior, Hardware Removal Spine 3 <+> Time In 3 <*> Procedure Cervical Discectomy Fusion Anterior, Hardware Removal Spine 4 <+> Time In 4 <*> Procedure Cervical Discectomy Fusion Anterior, Hardware Removal Spine [facility] IntraOp Case Times Entry 1 Patient In Room Time 10/01/20 08:14:00 Out Room Time 10/01/20 10:25:00 Anesthesia Start Time 10/01/20 08:14:00 Stop Time 10/01/20 10:25:00 Surgery / Procedure Times Start Time 10/01/20 08:50:00 Stop Time 10/01/20 10:16:00 Last Modified By: Az Stack RN 10/01/20 10:17:01 [facility] IntraOp Case Times Audit 10/01/20 10:25:15 Program Aide Group Work: [email or web address] Modifier: [email or web address] <+> 1 Out Room Time <+> 1 Stop Time 10/01/20 10:17:01 Program Aide Group Work: [email or web address] Modifier: [email or web address] <+> 1 Stop Time 10/01/20 08:50:48 Program Aide Group Work: [email or web address] Modifier: [email or web address] <+> 1 Start Time [facility] IntraOp Cautery Entry 1 Entry 2 ESU Identification Cautery Type Monopolar ESU BiPolar ESU Cautery Type Comments ID Number [id number] ID Type Hospital Number Hospital Number Cautery Settings Cut Setting 40 8 Coag Setting 40 40 Blend Setting Bipolar Setting 40 Argon Setting Argon Chen ESU Grounding Pad Ground Pad Type Adult Grounding Pad Type Comment Grounding Pad Site Left thigh Grounding Pad Site WNL Comment Grounding Pad Az Stack RN Applied By Grounding Pad Site Warm, Dry, Intact Skin Condition Before Cautery Site Skin Condition WDL Before Comment Grounding Pad Site Unchanged Skin Condition After Cautery Site Skin Condition WDL After Comment Last Modified By: Az Stack RN Byrd, Charlie D, RN 10/01/20 08:47:48 10/01/20 08:47:48 [facility] IntraOp Communication Entry 1 Communication To Family/Significant other Comment START Communication By CHARLIE RAMIREZ RN Date and Time 10/01/20 08:51:00 Last Modified By: Az Stack RN 10/01/20 08:51:57 [facility] IntraOp Counts Verification Entry 1 Procedure Cervical Discectomy Fusion Anterior, Hardware Removal Spine Count Info Count Type Sponge, Sharps, Miscellaneous Counts Verification Baseline/pre-procedure Sequence Count Results Not Applicable Counts Performed By Count Performed By JAZZMINE MIRANDA ST (Scrub) Count Performed By Az Stack RN (RN) Last Modified By: Az Stack RN 10/01/20 08:43:02 [facility] IntraOp Counts Final Entry 1 Procedure Cervical Discectomy Fusion Anterior, Hardware Removal Spine Final Count Info Count Type Sponge, Sharps, Miscellaneous Counts Verification Skin Closure/end of Sequence procedure Count Results Correct, surgeon notified Counts Performed By Count Performed By JAZZMINE MIRANDA ST (Scrub) Count Performed By Az Stack RN (RN) Last Modified By: Az Stack RN 10/01/20 10:11:07 [facility] IntraOp Cultures and Spec Summary Entry 1 Cultrures and Specimens Specimen Ordered: Yes Test(s) Routine/Path-Lab Requested/Final Disposition Last Modified By: Az Stack RN 10/01/20 09:03:08 General Comments: A. EXPLANTED HARDWARE [facility] IntraOp Delays Entry 1 Delay Reason Surgeon late - did not call Duration 14 Minute(s) Last Modified By: Az Stack RN 10/01/20 08:48:03 [facility] IntraOp Departure from OR Entry 1 Integumentary Assessment Integumentary WDL Assessment WDL Transfer/Handoff Transfer to PACU Phase I Handoff Method Bedside/Face to face, Phone call Post-op Transport Stretcher/Mattyney Via Patient Transport ROSALINDA WAITE, Accompanied by Lucia Wren CRNA Last Modified By: Az Stack RN 10/01/20 09:00:29 [facility] IntraOp Drains and Tubes Entry 1 Device Type Tre Drain Size 10 FR Drain/Tube Activity Inserted Drain/Tube Suction Bulb Drain/Tube Drainage Serosanguineous Device Location OP SITE Method of Drainage Compression Last Modified By: Az Stack RN 10/01/20 10:11:44 [facility] IntraOp Dressing and Packing Entry 1 Type Dressing Location OP SITE Wound Dressing Item Occlusive dressing, Skin adhesive, Steristrip Applied By ROSALINDA WAITE Last Modified By: Az Stack RN 10/01/20 09:01:05 [facility] IntraOp Fire Risk Assessment Entry 1 Fire Info Surgical Site or 1- Yes Incision Above the Xyphoid Open O2 Source 0- No (Mask or Cannula) Available Ignition 1- Yes (ESU, Laser, Light Source) Fire Risk 2 Assessment Score Fire Score Fire Risk Yes Assessment Complete Fire Risk Az Stack RN Assessment Verified By Fire Risk 10/01/20 08:13:00 Assessment Verified Date/Time Fire Risk Standard Fire Yes Safety Precautions Followed Last Modified By: Az Stack RN 10/01/20 08:52:06 [facility] IntraOp General Case Press And Blow Machine Tender 1 Case Information OR OR 11 [facility] Case Level 1 Room Verified Yes Wound Class II - Clean-Contaminated Specialty SN Neurosurgery Anesthesia Type General ASA Class 3 Diagnosis Preop Diagnosis CERVICAL STENOSIS Postop Same As Preop No Postop Diagnosis SEE MD POST OP N0TE Last Modified By: Az Stack RN 10/01/20 08:53:00 [facility] IntraOp Implant Log Entry 1 Entry 2 Entry 3 Type Tissue Implant Implant (Synthetic) Implant (Synthetic) (Biologic) Implant Log Implant Type Hardware Hardware Tissue Implant Type Bone Implant BONE VIVIGEN FORMABLE [id number] EIT CIF H 6MM [id number] EIT CIF H 5MM Identification -[id number] CAGE L CAGE Description Implant Quantity 1 1 1 Implant Site OP SITE OP SITE OP SITE Implant [id number] Identification Model Number Implant Identification Serial Number Implant [id number] Identification Lot Number Implant Lifenet:Lifenet Identification Transplant Srv Soda Worker Name: Implant [id number] Identification Catalog Number Implant Size Implant Has an Yes Yes Yes Expiration Date Implant Expiration 09/18/21 12/22/24 04/23/24 Date Wasted Radioactive Material Time Implanted Tissue Implant Continue for Tissue Implant Documentation Tissue Identification Number Graft Prep Per Soda Worker Instructions: Tissue Preparation Method: Reconstitution Solution: Reconstitution Solution Lot Number Reconstitution Solution Expiration Date: Thawing Solution Thawing Solution Lot Number Thawing Solution Expiration Date Preparation Materials, Other Preparation Materials, Other Lot Number Preparation Materials, Other Expiration Date Tissue Prepared/Processed By Soda Worker Paperwork Completed Implant Type Comment Last Modified By: Az Stack RN Byrd, Charlie D, RN Byrd, Charlie D, RN 10/01/20 09:27:04 10/01/20 09:38:34 10/01/20 09:52:01 Entry 4 Entry 5 Entry 6 Type Implant (Synthetic) Implant (Synthetic) Implant (Synthetic) Implant Log Implant Type Hardware Hardware Hardware Tissue Implant Type Implant PLT ANT SKYLN HYBRD SCR SKYLN VARI SD SCR SKYLN VARI SD Identification [id number] Description Implant Quantity 1 2 4 Implant Site OP SITE OP SITE OP SITE Implant Identification Model Number Implant Identification Serial Number Implant Identification Lot Number Implant J&J:Depuy:Depuy Spine J&J:Depuy:Depuy Spine J&J:Depuy:Depuy Spine Identification Soda Worker Name: Implant [id number] Identification Catalog Number Implant Size Implant Has an Expiration Date Implant Expiration Date Wasted Radioactive Material Time Implanted Tissue Implant Continue for Tissue Implant Documentation Tissue Identification Number Graft Prep Per Soda Worker Instructions: Tissue Preparation Method: Reconstitution Solution: Reconstitution Solution Lot Number Reconstitution Solution Expiration Date: Thawing Solution Thawing Solution Lot Number Thawing Solution Expiration Date Preparation Materials, Other Preparation Materials, Other Lot Number Preparation Materials, Other Expiration Date Tissue Prepared/Processed By Soda Worker Paperwork Completed Implant Type Comment Last Modified By: Az Stack RN Byrd, Charlie D, RN Byrd, Charlie D, RN 10/01/20 10:10:45 10/01/20 10:10:45 10/01/20 10:10:45 [facility] IntraOp Implant Log Audit 10/01/20 10:10:45 Program Aide Group Work: PHONG Modifier: PHONG <+> 4 Implant Identification Description <+> 4 Implant Identification Soda Worker Name: <+> 4 Implant Site <+> 4 Implant Quantity <+> 4 Implant Identification Catalog Number <+> 4 Implant Type <+> 4 Type <+> 5 Implant Identification Description <+> 5 Implant Identification Soda Worker Name: <+> 5 Implant Site <+> 5 Implant Quantity <+> 5 Implant Identification Catalog Number <+> 5 Implant Type <+> 5 Type <+> 6 Implant Identification Description <+> 6 Implant Identification Soda Worker Name: <+> 6 Implant Site <+> 6 Implant Quantity <+> 6 Implant Identification Catalog Number <+> 6 Implant Type <+> 6 Type 10/01/20 09:52:01 Program Aide Group Work: PHONG Modifier: PHONG <+> 3 Implant Identification Description <+> 3 Implant Identification Lot Number <+> 3 Implant Expiration Date <+> 3 Implant Site <+> 3 Implant Quantity <+> 3 Implant Type <+> 3 Implant Has an Expiration Date <+> 3 Type 10/01/20 09:38:34 Program Aide Group Work: PHONG Modifier: PHONG <+> 2 Implant Identification Description <+> 2 Implant Identification Lot Number <+> 2 Implant Expiration Date <+> 2 Implant Site <+> 2 Implant Quantity <+> 2 Implant Type <+> 2 Implant Has an Expiration Date <+> 2 Type [facility] IntraOp Intraoperative Assessment Entry 1 Handoff Method Online nursing summary Valid History / Yes Physical in Chart Preoperative Yes Checklist Reviewed/Evaluated Allergies Reviewed Yes Patient is Latex No Sensitive Isolation Not applicable Precautions Noted Level of WDL Consciousness (WDL = Alert, Oriented to Person, Place, and Time) Skin Assessment No Verified Present Upon IVs Arrival to OR Last Modified By: Az Stack RN 10/01/20 08:54:04 [facility] IntraOp Intraoperative Equipment Entry 1 Type Equipment Equipment Equipment Ami Suction System ID Number [id number] Setting 160 MM HG Intraop Monitoring Electrocardiogram Five lead placement (ECG) Electrode Placement Blood Pressure Non-Invasive BP Device Source Blood Pressure Arm, right upper Location Pulse Oximeter Hand, left Probe Site Antiembolic Devices Antiembolic Devices Sequential compression device, knee high Antiembolic Device Bilateral Location Antiembolic Device [id number] ID Number Scopes Photo/Video Documentation Last Modified By: Az Stack RN 10/01/20 08:54:45 [facility] IntraOp Medication Admin Entry 1 Entry 2 Entry 3 Medication/Irrigant Bacitracin 50,00units lidocaine 1% w/ Neosporin 15Gm ointment powder vial epinephrine 1:100,000 - [id number] 30ml vial - [id number] Combo Med List Time Administered Route of ADDED TO NS IRRIGATION LOCAL TOPICAL Administration Dose Dose 28150 4 1 Unit of Measure units ml pkt Volume Administered By ANDREW WATSON TUTT, MATTHEW PAIGE, TUTT, MATTHEW PAIGE, MD-SNU MD-SNU MD-SNU Procedure Irrigation Irrigant Volume In Irrigant Volume Out Last Modified By: Az Stack RN Byrd, Charlie D, RN Byrd, Charlie D, RN 10/01/20 08:56:29 10/01/20 08:56:29 10/01/20 08:56:29 Entry 4 Entry 5 Entry 6 Medication/Irrigant SPNG SURGFOAM thrombin 5000units MATRIX FLOSEAL HEMO [id number] topical powder - 10ML [id number] Combo Med List Time Administered Route of TOPICAL TOPICAL TOPICAL Administration Dose Dose 1 5000 10 Unit of Measure pkt units ml Volume Administered By ANDREW WATSON TUTT, MATTHEW PAIGE, TUTT, MATTHEW PAIGE, MD-SNU MD-SNU MD-SNU Procedure Irrigation Irrigant Volume In Irrigant Volume Out Last Modified By: Az Stack RN Byrd, Charlie D, RN Byrd, Charlie D, RN 10/01/20 08:56:29 10/01/20 08:56:29 10/01/20 09:18:38 [facility] IntraOp Medication Admin Audit 10/01/20 09:18:38 Program Aide Group Work: PHONG Modifier: [email or web address] <+> 6 Medication/Irrigant <+> 6 Route of Administration <+> 6 Administered By <+> 6 Dose <+> 6 Unit of Measure [facility] IntraOp Patient Positioning Entry 1 Procedure Cervical Discectomy Fusion Anterior, Hardware Removal Spine Body Position Supine Left Arm Position Tucked and padded at side Right Arm Position Tucked and padded at side Left Leg Position Elevated Right Leg Position Elevated Feet Uncrossed Yes Pressure Points Yes Checked Positioning Devices Head Rest, Darin Table, Pad, Elbow, Pillows, Safety Strap, Thighs, Traction Devices Positioned By ANDREW WATSON MD-SNU, Az Stack, ELISABETH, CHARLIE RAMIREZ RN, Lucia Wren CRNA Position Verified Positioning Yes Verified by Anesthesia Positioning Yes Verified by Surgeon Last Modified By: Az Stack RN 10/01/20 08:57:41 [facility] IntraOp Sign In Entry 1 Patient, Site, Yes Procedure Identified Surgical Consent Yes Confirmed Relevant Surgical Yes Documents Available Surgical Site N/A Marked by person performing procedure Anesthesia Machine Yes Check Completed Medication Checks Yes Completed Allergies Yes Airway Difficult Yes Airway/Aspiration Risk Difficult Yes Airway/Aspiration Intervention Equipment Available Blood Loss Risk Yes Blood Loss Yes Intervention Equipment Prepared and Ready Blood Identifiers Not applicable Verified Per Policy Hypothermia Risk Yes Warming Measures Yes Taken Last Modified By: Az Stack RN 10/01/20 09:00:12 [facility] IntraOp Sign In Audit 10/01/20 09:00:12 Program Aide Group Work: PHONG Modifier: [email or web address] <+> 1 Difficult Airway/Aspiration Risk <+> 1 Difficult Airway/Aspiration Intervention Equipment Available <+> 1 Blood Identifiers Verified Per Policy [facility] IntraOp Sign Out Entry 1 RN Confirmation Surgical Yes Procedure(s) Identified Instrument, Sponge Yes and Sharps Counts Correct/Documented Equipment Problems Yes Documented Specimen Labeled Yes Correctly Urinary Catheter N/A Documented in IView Bautista Patient Yes Recovery Concerns Reviewed with Anesthesia Provider, Surgeon and RN Bautista Patient Yes Management Concerns Reviewed with Anesthesia Provider, Surgeon and RN Safety Checklist Yes Elements Complete? RN Sign Out Az Stack, RN Signature RN Sign Out 10/01/20 10:25:00 Signature Date/Time Plan of Care Outcome - Fire Risk OUTCOME STATEMENT: Goal met Patient is free from injury related to surgical fire Plan of Care Outcome - Pt Positioning OUTCOME STATEMENT: Goal met Absence of signs and symptoms of positioning injury. Plan of Care Outcome - Skin Prep OUTCOME STATEMENT: Goal met Intraoperative care is consistent with measures to prevent infection Plan of Care Outcome - Xray/Images OUTCOME STATEMENT: Goal met Absence of observable signs or symptoms of radiation injury Plan of Care Outcome - Counts OUTCOME STATEMENT: Goal met Absence of signs and symptoms of injury related to extraneous objects Last Modified By: Az Stack RN 10/01/20 10:22:40 [facility] IntraOp Sign Out Audit 10/01/20 10:25:28 Program Aide Group Work: PHONG Modifier: [email or web address] <+> 1 RN Sign Out Signature Date/Time 10/01/20 10:22:40 Program Aide Group Work: PHONG Modifier: [email or web address] <+> 1 RN Sign Out Signature <+> 1 Urinary Catheter Documented in IView [facility] IntraOp Skin Prep Entry 1 Procedure Cervical Discectomy Fusion Anterior, Hardware Removal Spine Prescribed Yes Pre-Surgical Prep Completed Prep Area OP SITE AFTER ALCOHOL AND HIBICLENS PREP PER DR FIGUEROAT Intraop Prep Integumentary WDL Assessment WDL Prep Agents Alcohol, Chlorhexadine gluconate, DuraPrep Prep by CHARLIE RAMIREZ RN Hair Removal Methods No hair removal performed Last Modified By: zA Stack RN 10/01/20 08:42:11 [facility] IntraOp Surgical Procedures Entry 1 Entry 2 Procedure Cervical Discectomy Hardware Removal Spine Fusion Anterior Modifiers Additional (C3-4 ,4-5 ACDF AND Procedure HARWARE REMOVAL WITH Description CHIN STRAP TRACTION) Primary Procedure Yes No Primary Surgeon ANDREW WATSON, ANDREW WATSON MD-SNAmisha RAIN-SNU Start 10/01/20 08:50:00 10/01/20 08:50:00 Stop 10/01/20 10:16:00 10/01/20 10:16:00 Physician States Cecum Reached Anesthesia Type General General Specialty SN Neurosurgery SN Neurosurgery Wound Class I - Clean II - Clean-Contaminated Last Modified By: Az Stack RN Byrd, Charlie D, RN 10/01/20 08:55:17 10/01/20 08:55:17 [facility] IntraOp Surgical Procedures Audit 10/01/20 10:17:02 Program Aide Group Work: [email or web address] Modifier: [email or web address] <+> 1 Stop <+> 2 Stop [facility] IntraOp Temp Regulation Devices Entry 1 Temp Regulation Temperature Forced Air Warming Regulation Device device, Warm blankets Temperature 69849 Regulation Device Serial/Unit Number Temperature Lower body Regulation Site Temperature Device 43 C Setting Temperature Az Stack RN Regulation Device Applied by [facility] Modified By: Az Stack RN 10/01/20 08:55:13 [facility] IntraOP Time Out Entry 1 Procedure to be Cervical Discectomy Performed Fusion Anterior, Hardware Removal Spine Time Out Time Out Pause Time 10/01/20 08:49:00 All activity Yes suspended (unless life threatening emergency) Team Verbally Correct patient Confirms Information identity, Correct side and site are marked, Consent form is present and accurate, Agreement on the procedure to be done, Correct patient position, Relevant images/results properly labeled/appropriately displayed, Confirm antibiotics have been administered, Confirm the skin prep has dried, Confirm prosthesis/implant/devic e is present, Performed in location of procedure after prepped/draped Antibiotic Yes Prophylaxis Administered Or In Progress Within the Last 60 Minutes Beta Stacy N/A Administered Venous Yes Thromboembolism Prophylaxis Required Anticipated Critical Events Surgeon None expected Anesthesia Provider Patient specific concerns Nursing Assures Sterility of instruments, Equipment concerns or issues, Implant Availability Essential Imaging Yes Labeled and Displayed Last Modified By: Az Stack RN 10/01/20 08:50:46 [facility] IntraOP Time Out Audit 10/01/20 08:50:46 Program Aide Group Work: PHONG Modifier: PHONG 1 <+> Time Out Pause Time 1 <*> Procedure to be Performed Cervical Discectomy Fusion Anterior, Hardware Removal Spine [facility] IntraOp X-Ray and Images Entry 1 X-Ray/Imaging Type Fluoroscopy Fluoroscopy Type C-Arm Site OP SITE Aluminum Shingle Roofer Name Lizabeth Cely, Diagnostic Certified Health Education Specialist Last Modified By: Az Stack RN 10/01/20 08:54:56 Case Comments <None> Finalized By: KATELIN CHEN Document Signatures Signed By: Az Stack RN 10/01/20 10:25 KATELIN CHEN 10/02/20 13:03 Unfinalized History Date/Time Username Reason for Unfinalizing Freetext Reason for Unfinalizing 10/02/20 13:00 [email or web address] Correct Billing Electronically signed by Enedina [facility] Conversion Psychologist Personnel Cerner at 11/11/2022 11:22 AM CDT documented in this encounter Plan of Treatment Not on file documented as of this encounter Visit Diagnoses Not on filedocumented in this encounter
--- OUTSIDE RECORDS SUMMARY | 2025-02-25 07:55 | XMS_ITS | Clinical Summary ---
Author Organization [facility] Address [address] [place] [id number] Phone [email or web address] Care Team Providers Care Shoe Salesman Name Role Phone Unavailable Primary Care Provider Unavailabl e Allergies No known active allergies Medications atorvastatin (LIPITOR) 40 MG tablet 05/24/2018 Active ergocalciferol (VITAMIN D2) 78709 units capsule 05/24/2018 Activ e LIPOFEN 150 MG capsule 07/24/2018 Active JANUMET XR 100-1000 MG tablet sustained-release 24 hour 05/24/2018 Active V-R ASPIRIN CHILDRENS 81 MG chewable tablet 06/08/2018 Act phillip Active Problems Problem Noted Date Diagnosed Date Type 2 or unspecified type diabetes mellitus Overview (12/21/2017): Follow-up examination, following other surgery 0 09/13/2011 Overview (12/21/2017): Examination for medicolegal reason 04/01/2011 Overview (12/21/2017): Routine general medical exam ination at a health care facility 09/18/2009 Overview (12/21/2017): Health examination of defined subpopulation 08/26 Overview (12/21/2017): Presbyopia 05/28/2008 Overview (12/21/2017): Regular astigmatism 05/28/2008 Overview (12/21/2017): Myopia 05/28/2008 Overview (12/21/2017): Syncope and collapse 11/21/2007 Overview (12/21/2017): Social History Tobacco Use Types Packs/Day Years Used Date Smoking Tobacco: Never Assessed Intimate Partner Violence Answer Date R ecorded Insults You Not on file 11/05/2020 Threatens You Not on file 11/05/2020 Screams at You Not on file 11/05/2020 Physically Hurt Not on file 11/05/2020 Intimate Partner Violence Score Not on file 11/05/2020 Stress Answer Date Recorded Stress in your Life 0 09/05/2020 Dealing with Stress Not on file 09/05/2020 Sex and Gender Information Value Date Recorded Sex Assigned at Not on file Legal Sex Male 9:26 AM CDT Gender Identity Not on file Sexual Orientation Not on file Last Filed Vital Signs Vital Sign Reading Time Taken Comments Blood Pressure 119/83 07/27/2018 10:38 AM EST Pulse 93 07/27/2018 10:38 AM EST Temperature 36.8 C (98.3 F) 07/27/2018 10:38 AM EST Respiratory Rate - - Oxygen Saturation 97% 07/27/2018 10:38 AM EST Inhaled Oxygen Concentration - - Weight 84.5 kg (186 lb 2.9 oz) 10/04/2016 2:16 P M CDT Height 181.6 cm (5' 11.5 ) 04/18/2015 9:47 AM CD T Body Mass Index 25.61 04/18/2015 9:47 AM CDT Plan of Treatment Health Maintenance Due Date Last Done Comments CT Colonography 1955 Colonoscopy 1955 Colorectal Cancer Screening Combo 1955 DNA Cologuard 1955 Dental Cleaning/Exam 1955 FIT or FOBT Test 1955 Sigmoidoscopy 1955 Tetanus Diphtheria and Pertu ssis Immunization (1 - Tdap) 1976 Pneumococcal: 65+ Years (1 o f 1 - PCV) 2007 Zoster Immunization (1 of 2) 2007 Covid-19 Immunization (1 - 2 season) 2024 Influenza Immunization (#1) 2025 HIB Immunization Aged Out No longer e ligible based on patient's age to complete this topic HPV Immunization Aged Out No longer e ligible based on patient's age to complete this topic Hepatitis A Immunization Aged Out No longer eligible based on patient's age to complete this topic Hepatitis B Immunization Aged Out No longer eligible based on patient's age to complete this topic Polio Immunization Aged Out No longer eligible based on patient's age to complete this topic Insurance [place] [address] [facility] Address: [address] [place] [address]
--- OUTSIDE RECORDS SUMMARY | 2025-02-25 07:55 | XMS_ITS | Clinical Summary ---
Author Organization [facility] Address [address] [place] [address] Care Team Providers Care Camp Program Director Name Role Phone Gabino Marin MD Primary Care Provider + [phone] Family History Medical History Relation Name Comments Conversions - Other Father cardiova scular disease Alzheimer's disease Mother Conversions - Other Mother cardiova scular disease Relation Name Status Comments Father Mother Social History Tobacco Use Types Packs/Day Years Used Date Smoking Tobacco: Never Alcohol Use Standard Drinks/Week Comments No 0 (1 standard drink = 0.6 oz pur e alcohol) Sex and Gender Information Value Date Recorded Sex Assigned at Not on file Legal Sex Male 7:32 PM EDT Gender Identity Not on file Sexual Orientation Not on file Last Filed Vital Signs Vital Sign Reading Time Taken Comments Blood Pressure 104/60 08/23/2017 9:55 AM EST Pulse - - Temperature - - Respiratory Rate - - Oxygen Saturation - - Inhaled Oxygen Concentration - - Weight 82.9 kg (182 lb 12.2 oz) 08/23/2017 9:55 AM EST Height 177.8 cm (5' 10 ) 08/23/2017 9:55 AM EST Body Mass Index 26.22 08/23/2017 9:55 AM EST Plan of Treatment Not on file Care Teams Camp Program Director Relationship Specialty Start Date End Date Gabino Marin MD [address] [place] [id number] PCP - General 12/05/20
--- OUTSIDE RECORDS SUMMARY | 2025-02-25 07:56 | XMS_ITS | Encounter Summary ---
Author Organization [employer] ([place], [place], [place], [place]) Address [address] [place] [address] Care Team Providers Care Ssds Mk 2 Advanced Operator Name Role Phone Unavailable Primary Care Provider Unavailabl e Encounter Details Date Type Department Care Team (Late st Contact Info) Description 03/09/2019 Transcribed Document [facility] Cardiology [address] [place] [id number] Edvin Hollis MD [address] [facility] [address] [place] [address] Social History Tobacco Use Types Packs/Day Years Used Date Smoking Tobacco: Never Assessed Sex and Gender Information Value Date Recorded Sex Assigned at Not on file Legal Sex Male 4:43 PM CDT Gender Identity Not on file Sexual Orientation Not on file documented as of this encounter Miscellaneous Notes * Cerner Conversion Note - Edvin Hollis MD - 03/09/2019 5:06 PM EDT DATE OF STUDY: STRESS TEST WITH MYOCARDIAL PERFUSION STUDY This patient underwent a Lexiscan myocardial perfusion study. The EKG portion of which was unremarkable. NUCLEAR SCAN: There appears to be within normal myocardial perfusion, normal wall motion, and wall thickening appreciated. Ejection fraction by gated SPECT 74%. IMPRESSION: 1. Normal study. 2. Ejection fraction within normal limits at 74%. Edvin Hollis M.D. Dict: 03/09/2019 16:06:14 Trans: 03/09/2019 16:57:46 CC1: Edvin Hollis M.D. documented in this encounter Plan of Treatment Not on file documented as of this encounter Visit Diagnoses Not on filedocumented in this encounter
--- OUTSIDE RECORDS SUMMARY | 2025-02-25 07:56 | XMS_ITS | Encounter Summary ---
Author Organization [employer] ([place], [place], [place], [place]) Address [address] [place] [address] Care Team Providers Care Boat Painter Name Role Phone Unavailable Primary Care Provider Unavailabl e Encounter Details Date Type Department Care Team (Late st Contact Info) Description 10/02/2020 Transcribed Document [facility] Family Medicine [facility] [place] [address] ProviderSharee MD [address] [place], [place] [id number] Social History Tobacco Use Types Packs/Day Years Used Date Smoking Tobacco: Never Assessed Sex and Gender Information Value Date Recorded Sex Assigned at Not on file Legal Sex Male 4:43 PM CDT Gender Identity Not on file Sexual Orientation Not on file documented as of this encounter Miscellaneous Notes * Cerner Conversion Note - Historical ProviderMD - 10/02/2020 9:15 AM MEDICAL REVIEW COORDINATOR Stroke/Warfarin Instructions Entered On: 10/02/2020 9:15 EST Performed On: 10/02/2020 9:15 EST by YOSSI FRY RN Stroke/Warfarin Instructions Stroke/TIA Discharge Ins : N/A Warfarin Discharge Ins : N/A YOSSI FRY RN - 10/02/2020 9:15 EST Electronically signed by Enedina [facility] Conversion Auto Washer Cerner at 11/11/2022 11:31 AM CDT documented in this encounter Plan of Treatment Not on file documented as of this encounter Visit Diagnoses Not on filedocumented in this encounter
--- OUTSIDE RECORDS SUMMARY | 2025-02-25 07:56 | XMS_ITS | Encounter Summary ---
Author Organization [employer] ([place], [place], [place], [place]) Address [address] [place] [address] Care Team Providers Care Belt And Link Assembly Supervisor Name Role Phone Unavailable Primary Care Provider Unavailabl e Encounter Details Date Type Department Care Team (Late st Contact Info) Description 10/02/2020 Transcribed Document [facility] Neurology - Ad[address] By [address] [facility] [address] [place] [id number] Junior Kirk MD [facility] [place] [address] Social History Tobacco Use Types Packs/Day Years Used Date Smoking Tobacco: Never Assessed Sex and Gender Information Value Date Recorded Sex Assigned at Not on file Legal Sex Male 4:43 PM CDT Gender Identity Not on file Sexual Orientation Not on file documented as of this encounter Miscellaneous Notes * Cerner Conversion Note - Junior Kirk MD - 10/02/2020 9:09 AM EST Patient: WERNER BAEZ Age: 65 Years Sex: Male : 1955 Assessment/Plan POD 1 extension of ACDF to C34 with removal of old hardware rio output has slowed pain controlled -dc drain -dc home -discussed postoperative expectations -don collar when up and about admit Dx 1. Previous C5 through C7 anterior cervical discectomy and fusion with plating. 2. C3-4 and C4-5 disk osteophyte complexes. Discharge Dx 1. Previous C5 through C7 anterior cervical discectomy and fusion with plating. 2. C3-4 and C4-5 disk osteophyte complexes Subjective swallowing OK, tolerating diet and pills has been ambulating in room preop arm pain much better posterior neck pain controlled wants to go home denies cp soa cough abd pain nv nt Vital Signs T: 36.5 ??C TMIN: 36.2 ??C TMAX: 37.1 ??C HR: 85(Monitored) RR: 16 BP: 120/70 SpO2: 97% HT: 180.34 cm WT: 82.27 kg BMI: 25.3 Oxygen Settings (Last) Oxygen Therapy Mode: Room air (10/02/20 08:04:00) Oxygen Flow Rate: 6 Liter/Min (10/01/20 10:40:00) Intake & Output Totals Last 24 Hours (7a-7a) IV Fluids & Drains Last 24 Hours (7a-7a) Intake (0) No IV fluid intake events found in the last 24 hours. Output (1) Surgical Drain/Tube Output: 35 mL Output Total: 35mL Physical Exam A&O incision cdi, flat, soft rio to suction, serosang 5/5 appropriate documented in this encounter Plan of Treatment Not on file documented as of this encounter Visit Diagnoses Not on filedocumented in this encounter
--- OUTSIDE RECORDS SUMMARY | 2025-02-25 07:56 | XMS_ITS | Encounter Summary ---
Author Organization [employer] ([place], [place], [place], [place]) Address [address] [place] [address] Care Team Providers Care Tow Feeder Name Role Phone Unavailable Primary Care Provider Unavailabl e Encounter Details Date Type Department Care Team (Late st Contact Info) Description 10/02/2020 Transcribed Document [facility] Family Medicine [facility] [place] [address] ProviderSharee MD [address] [place] [address] Social History Tobacco Use Types Packs/Day Years Used Date Smoking Tobacco: Never Assessed Sex and Gender Information Value Date Recorded Sex Assigned at Not on file Legal Sex Male 4:43 PM CDT Gender Identity Not on file Sexual Orientation Not on file documented as of this encounter Miscellaneous Notes * Cerner Conversion Note - Historical ProviderMD - 10/02/2020 12:15 PM MEAT LUGGER UM Authorization Entered On: 10/02/2020 12:15 EST Performed On: 10/02/2020 12:15 EST by Stacy Bellamy Rn-Utilization Review Primary Insurance Authorization Authorization and Policy Numbers : Insurance 1 Health Plan: [facility] Policy Number: [id number] Authorization Number: [id number] Insurance Primary Name : Cash [id number] Authorization Number-Primary : OUT PT Auth# [id number] Authorized Service Begin Date-Primary : 10/01/2020 EST Historical Authorization Comments-Primary : Comment 1: pt is blair for OUT PT Cervical discectomy Fusion Anterior Hardware Removal Spone on 10-01-20 [place] OP Auth# [id number] (LUCY ALEMAN, Magnet Valve Assembler 09/30/2020 13:14) Stacy Bellamy Rn-Utilization Review - 10/02/2020 12:15 EST Electronically signed by Enedina, [facility] Conversion Fish Butcher Cerner at 11/11/2022 11:33 AM CDT documented in this encounter Plan of Treatment Not on file documented as of this encounter Visit Diagnoses Not on filedocumented in this encounter
--- OUTSIDE RECORDS SUMMARY | 2025-02-25 07:56 | XMS_ITS | Encounter Summary ---
Author Organization [employer] ([place], [place], [place], [place]) Address [address] [place] [address] Care Team Providers Care Public Address Servicer Name Role Phone Unavailable Primary Care Provider Unavailabl e Encounter Details Date Type Department Care Team (Late st Contact Info) Description 10/02/2020 Transcribed Document [facility] [place] [facility] [place] [address] ProviderSharee MD [address] [place] [id number] Social History Tobacco Use Types Packs/Day Years Used Date Smoking Tobacco: Never Assessed Sex and Gender Information Value Date Recorded Sex Assigned at Not on file Legal Sex Male 4:43 PM CDT Gender Identity Not on file Sexual Orientation Not on file documented as of this encounter Miscellaneous Notes * Cerner Conversion Note - Sharee ProviderMD - 10/02/2020 12:07 PM POMOLOGY TEACHER Patient Education Materials Follows: Anterior Cervical Diskectomy and Fusion, Care After [...] and water are not available, use hand pre assembly wirer. ? Change your dressing as told by [...] Managing pain, stiffness, and swelling ??? Take uojt-zzw-sxmzoaj and prescription medicines only as told by your health care provider. ??? If directed, put ice on the injured area. ? If you have a removable brace, remove it as told by your health care provider. ? Put ice in a plastic bag. ? Place a towel between your skin and the bag. ? Leave the ice on for 20 minutes, 2?3 times a day. Activity ??? Return to [...] keep your urine pale yellow. ? Take lehi-ayd-tziiwfk or prescription medicines. ? Eat foods that [...] 08/06/2016 Document Revised: 04/05/2019 Document Reviewed: 04/05/2019 [employer] Patient Education ? 2020 [employer] documented in this encounter Plan of Treatment Not on file documented as of this encounter Visit Diagnoses Not on filedocumented in this encounter
--- OUTSIDE RECORDS SUMMARY | 2025-02-25 07:56 | XMS_ITS | Encounter Summary ---
Author Organization [employer] ([place], [place], [place], [place]) Address [address] [place] [address] Care Team Providers Care Aemt Name Role Phone Unavailable Primary Care Provider Unavailabl e Encounter Details Date Type Department Care Team (Late st Contact Info) Description 10/02/2020 Transcribed Document [facility] [place] [address] ProviderSharee MD [address] [place], [place] [id number] Social History Tobacco Use Types Packs/Day Years Used Date Smoking Tobacco: Never Assessed Sex and Gender Information Value Date Recorded Sex Assigned at Not on file Legal Sex Male 4:43 PM CDT Gender Identity Not on file Sexual Orientation Not on file documented as of this encounter Miscellaneous Notes * Cerner Conversion Note - Historical ProviderMD - 10/02/2020 1:16 PM FUNERAL CAR DRIVER Discharge Summary, PT Entered On: 10/02/2020 13:19 EST Performed On: 10/02/2020 13:16 EST by GIO MONTIEL PT Discharge Summary Reason for Discharge : Discharge order Discharged to, Therapy : Home, with family care Discharge Equipment, PT : None Discharge Summary Comment, PT : The patient was seen for PT evaluation but ordered for discharge before any further PT services were rendered. GIO MONTIEL, PT - 10/02/2020 13:16 EST Senior Living Goals Mobility/Bed Mobility LTG PT Grid Goal #1 Activity : Sit to stand Assist : Independent, complete Date to Meet : 10/15/2020 EDT Goal Status : Not met GIO MONTIEL PT - 10/02/2020 13:16 EST Ambulation LTG Grid Goal #1 Device : None Distance : 400' Assist : Independent, complete Date to Meet : 10/15/2020 EDT Goal Status : Not met GIO MONTIEL PT - 10/02/2020 13:16 EST Stairs LTG Grid Goal #1 Device : None Number of Steps : 1 Assist : Independent, complete Date to Meet : 10/15/2020 EDT Goal Status : Not met GIO MONTIEL, PT - 10/02/2020 13:16 EST Electronically signed by Enedina, [facility] Conversion Operator Receptionist Cerner at 11/11/2022 11:35 AM CDT documented in this encounter Plan of Treatment Not on file documented as of this encounter Visit Diagnoses Not on filedocumented in this encounter
--- OUTSIDE RECORDS SUMMARY | 2025-02-25 07:56 | XMS_ITS | Encounter Summary ---
Author Organization [employer] ([place], [place], [place], [place]) Address [address] [place] [address] Care Team Providers Care Mechanical Manufacturing Engineer Name Role Phone Unavailable Primary Care Provider Unavailabl e Encounter Details Date Type Department Care Team (Late st Contact Info) Description 10/02/[address] [facility] [place] Family Medicine [address] [place] [address] ProviderSharee MD [address] [place], [place] [id number] Social History Tobacco Use Types Packs/Day Years Used Date Smoking Tobacco: Never Assessed Sex and Gender Information Value Date Recorded Sex Assigned at Not on file Legal Sex Male 4:43 PM CDT Gender Identity Not on file Sexual Orientation Not on file documented as of this encounter Miscellaneous Notes * Cerner Conversion Note - Sharee ProviderMD - 10/02/2020 1:55 PM INSTALLMENT AGENT Initial Discharge Planning Entered On: 10/02/2020 13:57 EST Performed On: 10/02/2020 13:55 EST by GERMAN HAILE RN-Continuous Linter Drier Operator Initial Assessment I Previously Documented Living Environment : No qualifying data available. Living Situation : Home Patient Lives With : Spouse Is the Patient a Caregiver at Home? : No Emergency Contact #1 : `Hortencia Baez Emergency Contact #1 ` Emergency Contact #1 Relationship : spouse` Emergency Contact #2 : ` Emergency Contact #2 Phone Number : ` Emergency Contact #2 Relationship : ` Enter Doctors Name : JAKUB JUSTICE (REF)MD-NU Does Patient have PCP Listed? : Yes GERMAN HAILE RN-Continuous Linter Drier Operator - 10/02/2020 13:55 EST Initial Assessment II Sensory and Motor Deficits : None Does the Patient have a Floor to SNF Benefit? : No GERMAN HAILE RN-Continuous Linter Drier Operator - 10/02/2020 13:55 EST Discharge Needs I Anticipated Discharge Date : 10/02/2020 EST Anticipated Discharge To, CM : Home with family care Current Home Treatment/Equipment : Current Home Treatment/Equipment No qualifying data available. Post Acute/Home Treatments : None Documentation Status Complete : Yes GERMAN HAILE RN-Continuous Linter Drier Operator - 10/02/2020 13:55 EST Discharge Needs II Professional Skilled Services : Professional Skilled Services No qualifying data available. Needs Assistance with Transportation : No GERMAN HAILE RN-Continuous Linter Drier Operator - 10/02/2020 13:55 EST Narrative Note Narrative Note : 65yo male pt s/p C3-5 ACDF. Pt ambulated 120ft with therapy yesterday and has been ambulating in halls independently today. No CM needs noted. Pt dc'd home with family. GERMAN HAILE RN-Continuous Linter Drier Operator - 10/02/2020 13:55 EST documented in this encounter Plan of Treatment Not on file documented as of this encounter Visit Diagnoses Not on filedocumented in this encounter
--- OUTSIDE RECORDS SUMMARY | 2025-02-25 07:56 | XMS_ITS | Encounter Summary ---
Author Organization [employer] ([place], [place], [place], [place]) Address [address] [place] [address] Care Team Providers Care Genetics Teacher Name Role Phone Unavailable Primary Care Provider Unavailabl e Encounter Details Date Type Department Care Team (Late st Contact Info) Description 10/02/2020 Transcribed Document [facility] [place] Family Medicine [facility] [place] [address] ProviderSharee MD [address], [place] [id number] Social History Tobacco Use Types Packs/Day Years Used Date Smoking Tobacco: Never Assessed Sex and Gender Information Value Date Recorded Sex Assigned at Not on file Legal Sex Male 4:43 PM CDT Gender Identity Not on file Sexual Orientation Not on file documented as of this encounter Miscellaneous Notes * Cerner Conversion Note - Historical ProviderMD - 10/02/2020 1:39 PM MILLINERY WORKER Nursing Discharge Summary Entered On: 10/02/2020 13:40 EST Performed On: 10/02/2020 13:39 EST by YAYO SCHAFFER executive steward Documentation Discharge Date/Time : 10/02/2020 13:30 EST Patient Disposition, General : Discharge Discharge To : Home with ambulatory/outpatient follow-up Mode Of Departure, General Discharge : Private vehicle Accompanied By, Discharge : Spouse IV Discontinued : Yes Personal Belongings With Patient : Yes Prescriptions Given to Patient : Yes Discharge Instructions Reviewed With, Opportunity For Questions Given : Patient, Spouse Patient Education Completed : Yes Number of Prescriptions Given : 1 Teaching Method : Explanation, Printed materials Teaching Evaluation : Verbalizes understanding YAYO SCHAFFER RN - 10/02/2020 13:39 EST Electronically signed by [facility] Conversion Kiln Tender Cerner at 11/11/2022 11:37 AM CDT documented in this encounter Plan of Treatment Not on file documented as of this encounter Visit Diagnoses Not on filedocumented in this encounter
--- NOTE | 2025-02-25 08:00 | MR_ITS ---
FINAL REPORT CLINICAL HISTORY: pain for 2 years, limited rom joint injections 1 year ago, continued pain COMPARISON: None FINDINGS: Multi planar MR imaging of the left shoulder was performed. The supraspinatus tendon appears intact. There is no abnormal fluid in the subacromial/subdeltoid bursa. Heterogeneous linear abnormal signal of the anterior labrum consistent with tear. Posterior labrum intact. Subscapularis tendon intact. Split type tear of the proximal biceps tendon. Mild hypertrophic changes of the acromioclavicular joint. IMPRESSION: Linear signal across the anterior labrum consistent with tear. Split type proximal biceps tendon tear. Reviewed, Interpreted and Dictated by Flavio Cornejo MD Transcribed by Susan Antunez Authenticated and [facility] [place] [place]
== END 2025-02-25 23:59 | disposition home or self-care (01) ==
LOC: RAD 07:53
PROVIDERS: PCP Internal Medicine Adolescent Medicine; Visit Provider Physician Assistant
DX: S46.212A Strain of muscle, fascia and tendon of other parts of biceps, left arm, initial encounter (principal); R93.6 Abnormal findings on diagnostic imaging of limbs; M75.22 Bicipital tendinitis, left shoulder
CPT/HCPCS: 73221

== ENCOUNTER 2025-03-05 07:08 | Outpatient (CLI) | payer MEDICARE, SELFPAY ==
--- OUTSIDE RECORDS SUMMARY | 2025-03-05 07:11 | XMS_ITS | Encounter Summary ---
Author Organization [employer] ([place], [place], [place], [place]) Address [address] [place] [address] Care Team Providers Care Bread Jockey Name Role Phone Unavailable Primary Care Provider Unavailabl e Encounter Details Date Type Department Care Team (Late st Contact Info) Description 03/09/2019 Transcribed Document [facility] Cardiology [address] [place] [phone] Edvin Hollis MD [address] [facility] [address] [place] [address] Social History Tobacco Use Types Packs/Day Years [...]
--- OUTSIDE RECORDS SUMMARY | 2025-03-05 07:11 | XMS_ITS | Encounter Summary ---
Author Organization [employer] ([place], [place], [place], [place]) Address [address] [place] [address] Care Team Providers Care Manager Grant Name Role Phone Unavailable Primary Care Provider Unavailabl e Encounter Details Date Type Department Care Team (Late st Contact Info) Description 10/01/2020 Transcribed Document [facility] [place] Pending sale [facility] [address] ProviderSharee MD [address] [place] [address] Social History Tobacco Use Types Packs/Day Years Used Date Smoking Tobacco: Never Assessed Sex and Gender Information Value Date Recorded Sex Assigned at Not on file Legal Sex Male 4:43 PM CDT Gender Identity Not on file Sexual Orientation Not on file documented as of this encounter Miscellaneous Notes * Cerner Conversion Note - Historical ProviderMD - 10/01/2020 10:47 AM OFFICE COMMUNICATION PROFESSOR Pain Assessment Entered On: 10/01/2020 11:16 EST [...]
--- OUTSIDE RECORDS SUMMARY | 2025-03-05 07:11 | XMS_ITS | Encounter Summary ---
Author Organization [employer] ([place], [place], [place], [place]) Address [address] [place] [address] Care Team Providers Care Vehicle Dynamics Engineer Name Role Phone Unavailable Primary Care Provider Unavailabl e Encounter Details Date Type Department Care Team (Late st Contact Info) Description 10/01/2020 Transcribed Document [facility] [place] [address] [place] [address] ProviderSharee MD [address] [place], [place] [phone] Social History Tobacco Use Types Packs/Day Years Used Date Smoking Tobacco: Never Assessed Sex and Gender Information Value Date Recorded Sex Assigned at Not on file Legal Sex Male 4:43 PM CDT Gender Identity Not on file Sexual Orientation Not on file documented as of this encounter Miscellaneous Notes * Cerner Conversion Note - Historical ProviderMD - 10/01/2020 11:34 AM LEATHER PIECE INSPECTOR Meds to Bed Enrollment Entered On: 10/01/2020 [...]
--- OUTSIDE RECORDS SUMMARY | 2025-03-05 07:11 | XMS_ITS | Encounter Summary ---
Author Organization [employer] ([place], [place], [place], [place]) Address [address] [place] [address] Care Team Providers Care Menagerie Caretaker Name Role Phone Unavailable Primary Care Provider Unavailabl e Encounter Details Date Type Department Care Team (Late st Contact Info) Description 10/02/2020 Transcribed Document [facility] [place] [facility] [place] [address] ProviderSharee MD [address], [place] [phone] Social History Tobacco Use Types Packs/Day Years Used Date Smoking Tobacco: Never Assessed Sex and Gender Information Value Date Recorded Sex Assigned at Not on file Legal Sex Male 4:43 PM CDT Gender Identity Not on file Sexual Orientation Not on file documented as of this encounter Miscellaneous Notes * Cerner Conversion Note - Sharee ProviderMD - 10/02/2020 1:57 PM COCONUT COOKER Final Discharge Planning Entered On: 10/02/2020 13:58 EST Performed On: 10/02/2020 13:57 EST by GERMAN HAILE RN-Rail Walker Final Discharge Planning Discharge Arrangements : Patient [...] : Yes Discharge To Care Management : Home/Residential/Usp or Self Care -01 GERMAN HAILE RN-Rail Walker - 10/02/2020 13:57 EST documented in this encounter Plan of Treatment Not on file documented as of this encounter Visit Diagnoses Not on filedocumented in this encounter
--- OUTSIDE RECORDS SUMMARY | 2025-03-05 07:11 | XMS_ITS | Encounter Summary ---
Author Organization [employer] ([place], [place], [place], [place]) Address [address] [place] [address] Care Team Providers Care Cup Setter Lockstitch Name Role Phone Unavailable Primary Care Provider Unavailabl e Encounter Details Date Type Department Care Team (Late st Contact Info) Description 10/01/2020 Transcribed Document [facility] [place] [facility] [place] [address] ProviderSharee MD [address], [place] [id number] Social History Tobacco Use Types Packs/Day Years Used Date Smoking Tobacco: Never Assessed Sex and Gender Information Value Date Recorded Sex Assigned at Not on file Legal Sex Male 4:43 PM CDT Gender Identity Not on file Sexual Orientation Not on file documented as of this encounter Miscellaneous Notes * Cerner Conversion Note - Historical ProviderMD - 10/01/2020 10:47 AM EQUIPMENT MAINTENANCE TECHNICIAN Pain Assessment Entered On: 10/01/2020 18:30 EST [...] version of the form. Electronically signed by Nacho Mcconnell Conversion Physics And Astronomy Professor Cerner at 11/11/2022 11:45 AM CDT documented in this encounter Plan of Treatment Not on file documented as of this encounter Visit Diagnoses Not on filedocumented in this encounter
--- OUTSIDE RECORDS SUMMARY | 2025-03-05 07:11 | XMS_ITS | Encounter Summary ---
Author Organization [employer] ([place], [place], [place], [place]) Address [address] [place] [address] Care Team Providers Care Medical Advisor Name Role Phone Unavailable Primary Care Provider Unavailabl e Encounter Details Date Type Department Care Team (Late st Contact Info) Description 09/30/2020 Transcribed Document [facility] [place] [address] [place] [address] ProviderSharee MD [address] [place], [place] [id number] Social History Tobacco Use Types Packs/Day Years Used Date Smoking Tobacco: Never Assessed Sex and Gender Information Value Date Recorded Sex Assigned at Not on file Legal Sex Male 4:43 PM CDT Gender Identity Not on file Sexual Orientation Not on file documented as of this encounter Miscellaneous Notes * Cerner Conversion Note - Historical ProviderMD - 09/30/2020 1:14 PM FIELD TECHNICAL SUPPORT CONSULTANT UM Authorization Entered On: 09/30/2020 13:15 EST Performed On: 09/30/2020 13:14 EST by LUCY ALEMAN Harness Preparer Primary Insurance Authorization Authorization and Policy Numbers : Insurance 1 Health Plan: [facility] Policy Number: [id number] Authorization Number: Insurance Primary Name : Cash [id number] Authorization Number-Primary : OUT PT Auth# [id number] Authorized Service Begin Date-Primary : 10/01/2020 EST Authorization Comments-Primary : pt is blair for OUT PT Cervical discectomy Fusion Anterior Hardware Removal Spone on 10-01-20 [place] OP Auth# [id number] Historical Authorization Comments-Primary : No Authorization Comments Found LUCY ALEMAN, Harness Preparer - 09/30/2020 13:14 EST Electronically signed by Enedina [facility] Conversion Chipper Feeder Cerner at 11/11/2022 11:42 AM CDT documented in this encounter Plan of Treatment Not on file documented as of this encounter Visit Diagnoses Not on filedocumented in this encounter
--- OUTSIDE RECORDS SUMMARY | 2025-03-05 07:11 | XMS_ITS | Clinical Summary ---
Author Organization [employer] ([place], [place], [place], [place]) Address [address] [place] [address] Care Team Providers Care Sales Account Associate Name Role Phone Unavailable Primary Care Provider [...]
--- OUTSIDE RECORDS SUMMARY | 2025-03-05 07:11 | XMS_ITS | Encounter Summary ---
Author Organization [employer] ([place], [place], [place], [place]) Address [address] [place] [address] Care Team Providers Care Route Driver Coin Machines Name Role Phone Unavailable Primary Care Provider Unavailabl e Encounter Details Date Type Department Care Team (Late st Contact Info) Description 10/01/2020 Transcribed Document [facility] [place] [facility] [place] [address] ProviderSharee MD [address], [place] [id number] Social History Tobacco Use Types Packs/Day Years Used Date Smoking Tobacco: Never Assessed Sex and Gender Information Value Date Recorded Sex Assigned at Not on file Legal Sex Male 4:43 PM CDT Gender Identity Not on file Sexual Orientation Not on file documented as of this encounter Miscellaneous Notes * Cerner Conversion Note - Historical ProviderMD - 10/01/2020 7:57 AM PRETZEL PACKER Admission History, Adult Entered On: 10/01/2020 15:45 [...] Arrival on Unit : Ambulatory Support Person/Patient Special Officer Automat : Yes Support Person/Pt Rep Name : Hortencia Baez - Support Person/Pt Rep Contact Information : [phone] Want Family/Rep/Phys Notified of Admit : No Emergency Contact #1 : `Hortencia Baez Emergency Contact #1 ` Emergency Contact #1 Relationship : spouse` Emergency Contact #2 : ` Emergency Contact #2 Phone Number : ` Emergency Contact #2 Relationship : ` Information Obtained From : Patient Primary Language : Kazakh Preferred Communication Mode : Verbal Communication Barrier : None Track Grinder Needed : No Objects to Sharing Info [...] Scale Risk Level : 25-45 Medium Risk [place] Fall Interventions : Adequate lighting, Assistive devices [...] Smokeless Tobacco Status : Never Implant/Device Type, Newspaper Clipper and Model : right hip replacement hardware [...] Source : Measured Height Entry Format : [place] Height, Feet : 0 ft(Converted to: 0 cm, 0 Inch) Height, Inches : 71 Inch(Converted to: 5 ft 11 Inch, 180.34 cm) Clinical Height : 180.34 cm Weight Source : Standing scale Weight Entry Format : [place] Clinical Dosing Weight : 82.27 kg Weight, Pounds : 181.0 lb Body Surface Area (BSA) : 2.02 m2 Body Mass Index : 25.3 kg/m2 (HI) [place] Body Weight : 74 kg DANITZA VILLAFANA [...] DANITZA VILLAFANA RN - 10/01/2020 15:40 EST [place] Suicide Severity Rating Scale (C-SSRS) CSSRS Past [...] Risk Comment : had UPPP surgery DANITZA VILLAFAAN RN - 10/01/2020 15:40 EST Valuables and Belongings Valuables and Belongings : Clothing, Personal devices Clothing : Outerwear Clothing Disposition : Bedside Personal Device Disposition : Bedside Personal Devices : Glasses DANITZA VILLAFANA RN - 10/01/2020 16:55 EST Electronically signed by Enedina [facility] Conversion Application Systems Administrator Cerner at 11/11/2022 11:34 AM CDT documented in this encounter Plan of Treatment Not on file documented as of this encounter Visit Diagnoses Not on filedocumented in this encounter
--- OUTSIDE RECORDS SUMMARY | 2025-03-05 07:11 | XMS_ITS | Encounter Summary ---
Author Organization [employer] ([place], [place], [place], [place]) Address [address] [place] [address] Care Team Providers Care Track Layer Head Name Role Phone Unavailable Primary Care Provider Unavailabl e Encounter Details Date Type Department Care Team (Late st Contact Info) Description 10/02/2020 Transcribed Document [facility] [place] [facility] [place] [address] ProviderSharee MD [address], [place] [phone] Social History Tobacco Use Types Packs/Day Years Used Date Smoking Tobacco: Never Assessed Sex and Gender Information Value Date Recorded Sex Assigned at Not on file Legal Sex Male 4:43 PM CDT Gender Identity Not on file Sexual Orientation Not on file documented as of this encounter Miscellaneous Notes * Cerner Conversion Note - Historical ProviderMD - 10/02/2020 1:39 PM FRUIT BUYING GRADER Nursing Discharge Summary Entered On: 10/02/2020 13:40 EST Performed On: 10/02/2020 13:39 EST by YAYO SCHAFFER biology tutor Documentation Discharge Date/Time : 10/02/2020 13:30 EST [...] - 10/02/2020 13:39 EST Electronically signed by [facility] Conversion Geoscience Specialist Cerner at 11/11/2022 11:37 AM CDT documented in this encounter Plan of Treatment Not on file documented as of this encounter Visit Diagnoses Not on filedocumented in this encounter
--- OUTSIDE RECORDS SUMMARY | 2025-03-05 07:11 | XMS_ITS | Encounter Summary ---
Author Organization [employer] ([place], [place], [place], [place]) Address [address] [place] [address] Care Team Providers Care Pit Steward Name Role Phone Unavailable Primary Care Provider Unavailabl e Encounter Details Date Type Department Care Team (Late st Contact Info) Description 10/01/2020 Transcribed Document [facility] [place] [facility] [place] [address] ProviderSharee MD [address] [place] [address] Social History Tobacco Use Types Packs/Day Years Used Date Smoking Tobacco: Never Assessed Sex and Gender Information Value Date Recorded Sex Assigned at Not on file Legal Sex Male 4:43 PM CDT Gender Identity Not on file Sexual Orientation Not on file documented as of this encounter Miscellaneous Notes * Cerner Conversion Note - Historical ProviderMD - 10/01/2020 8:00 AM JEWELRY FACER [facility] Main OR Preop Summary Primary Physician: ANDREW WATSON MD-BETSY Finalized Date/Time: 10/01/20 08:50:03 Pt. Name: WERNER BAEZ D.O.B./Sex: 1955 Male Med Rec #: [id number] Physician: ANDREW WATSON MD-SNU Financial #: [id number] Pt. Type: O Room/Bed: Admit/Disch: 10/01/20 07:57:00 - Institution: [facility] PreOp Case Times Entry 1 In Preop 10/01/20 06:02:00 Ready for Holding n/a Room Patient Ready for 10/01/20 07:52:00 Surgery Patient Out of Preop 10/01/20 08:11:00 Patient Out of n/a Holding Room Last Modified By: Jackie Vilchis RN 10/01/20 08:50:01 [facility] PreOp Case Times Audit 10/01/20 08:50:01 Sailor: [email or web address] Modifier: AUGUSTO <+> 1 Patient Out of Preop Finalized By: Jackie Vilchis RN Document Signatures Signed By: Jackie Vilchis RN 10/01/20 08:50 Electronically signed by Enedina [facility] Conversion Accounts Payable Payroll Coordinator Cerner at 11/11/2022 11:45 AM CDT documented in this encounter Plan of Treatment Not on file documented as of this encounter Visit Diagnoses Not on filedocumented in this encounter
--- OUTSIDE RECORDS SUMMARY | 2025-03-05 07:11 | XMS_ITS | Clinical Summary ---
Author Organization [facility] Address [address] [place] [address] Care Team Providers Care Executive Officer Special Warfare Team Name Role Phone Provider, No Known Primary Care Provider [phone] Social History Tobacco Use Types Packs/Day Years [...] ( season) 2024 INFLUENZA VACCINE 04/24/2025 Insurance [facility] PPO Care Teams Executive Officer Special Warfare Team Relationship Specialty Start Date End Date Provider, No Known [facility] [place] [address] PCP - General 05/13/16
--- OUTSIDE RECORDS SUMMARY | 2025-03-05 07:11 | XMS_ITS | Encounter Summary ---
Author Organization [employer] ([place], [place], [place], [place]) Address [address] [place] [address] Care Team Providers Care Movie Shot Cameraman Name Role Phone Unavailable Primary Care Provider Unavailabl e Encounter Details Date Type Department Care Team (Late st Contact Info) Description 10/01/2020 Transcribed Document [facility] [place] [facility] [address] ProviderSharee MD [address], [place] [phone] Social History Tobacco Use Types Packs/Day Years Used Date Smoking Tobacco: Never Assessed Sex and Gender Information Value Date Recorded Sex Assigned at Not on file Legal Sex Male 4:43 PM CDT Gender Identity Not on file Sexual Orientation Not on file documented as of this encounter Miscellaneous Notes * Cerner Conversion Note - Historical ProviderMD - 10/01/2020 10:47 AM DISPUTE RESOLUTION SPECIALIST Pain Assessment Entered On: 10/01/2020 11:15 EST [...]
--- OUTSIDE RECORDS SUMMARY | 2025-03-05 07:11 | XMS_ITS | Encounter Summary ---
Author Organization [employer] ([place], [place], [place], [place]) Address [address] [place] [address] Care Team Providers Care Financial Aid Officer Name Role Phone Unavailable Primary Care Provider Unavailabl e Encounter Details Date Type Department Care Team (Late st Contact Info) Description 10/02/2020 Transcribed Document [facility] [place] [facility] [place] [address] ProviderSharee MD [address], [place] [phone] Social History Tobacco Use Types Packs/Day Years Used Date Smoking Tobacco: Never Assessed Sex and Gender Information Value Date Recorded Sex Assigned at Not on file Legal Sex Male 4:43 PM CDT Gender Identity Not on file Sexual Orientation Not on file documented as of this encounter Miscellaneous Notes * Cerner Conversion Note - Historical ProviderMD - 10/02/2020 1:16 PM SPUN PASTE MACHINE OPERATOR Discharge Summary, PT Entered On: 10/02/2020 13:19 [...] GIO MONTIEL, PT - 10/02/2020 13:16 EST Alf Goals Mobility/Bed Mobility LTG PT Grid Goal [...] 10/02/2020 13:16 EST Electronically signed by Enedina, [facility] Conversion Business Process Manager Cerner at 11/11/2022 11:35 AM CDT documented in this encounter Plan of Treatment Not on file documented as of this encounter Visit Diagnoses Not on filedocumented in this encounter
--- OUTSIDE RECORDS SUMMARY | 2025-03-05 07:11 | XMS_ITS | Encounter Summary ---
Author Organization [employer] ([place], [place], [place], [place]) Address [address] [place] [address] Care Team Providers Care Credit Union Manager Name Role Phone Unavailable Primary Care Provider Unavailabl e Encounter Details Date Type Department Care Team (Late st Contact Info) Description 10/01/2020 Transcribed Document [facility] Neurology - [address] [facility] [address] [place] [phone] Junior Kirk MD [address] [place] [address] Social History Tobacco Use Types [...] and C4-5 anterior cervical diskectomy and fusion. RAT FARMER: Suhail Lynn PA-C TYPE OF ANESTHESIA: GEA. [...] disk space. Distraction was removed and a [place] plate was affixed to the anterior vertebral bodies from C3 to C6. Set screws were torqued to factory specifications. Fluoroscopy showed good placement of all instrumentation. The wound was copiously irrigated. Meticulous hemostasis was obtained and a 10-Ukrainian drain was left into the post-esophageal space. 2-0 Vicryl reapproximated the platysma, 3-0 Vicryl closed the skin subcuticularly. Mastisol and Steri-Strips and a Covaderm were applied. Suhail Lynn assisted throughout the surgery and helped perform the closure. SPECIMEN SENT: Old hardware. ESTIMATED BLOOD LOSS: 50 mL. DRAINS: Darin Webster. COMPLICATIONS: None. /[id number] Junior Kirk MD MPT/AQ / MPT / MODL /[id number] CC: Dr. Gabino Marin documented in this encounter Plan of Treatment Not on file documented as of this encounter Visit Diagnoses Not on filedocumented in this encounter
--- OUTSIDE RECORDS SUMMARY | 2025-03-05 07:11 | XMS_ITS | Encounter Summary ---
Author Organization [employer] ([place], [place], [place], [place]) Address [address] [place] [address] Care Team Providers Care Focus Puller Name Role Phone Unavailable Primary Care Provider Unavailabl e Encounter Details Date Type Department Care Team (Late st Contact Info) Description 10/01/2020 Transcribed Document [facility] [place] [facility] [place] [address] ProviderSharee MD [address], [place] [phone] Social History Tobacco Use Types Packs/Day Years Used Date Smoking Tobacco: Never Assessed Sex and Gender Information Value Date Recorded Sex Assigned at Not on file Legal Sex Male 4:43 PM CDT Gender Identity Not on file Sexual Orientation Not on file documented as of this encounter Miscellaneous Notes * Cerner Conversion Note - Sharee ProviderMD - 10/01/2020 10:18 AM HANDHOLE MACHINE OPERATOR Pain Assessment Entered On: 10/01/2020 18:32 EST Performed On: 10/01/2020 14:05 EST by DANIZTA VILLAFANA RN Intervention Information: acetaminophen-HYDROcodone Performed by [...] of the form. Electronically signed by Enedina, [facility] Conversion E Commerce Retailer Cerner at 11/14/2022 4:34 PM CDT documented in this encounter Plan of Treatment Not on file documented as of this encounter Visit Diagnoses Not on filedocumented in this encounter
--- OUTSIDE RECORDS SUMMARY | 2025-03-05 07:11 | XMS_ITS | Encounter Summary ---
Author Organization [employer] ([place], [place], [place], [place]) Address [address] [place] [address] Care Team Providers Care Harness Repairer Name Role Phone Unavailable Primary Care Provider Unavailabl e Encounter Details Date Type Department Care Team (Late st Contact Info) Description 10/02/2020 Transcribed Document [facility] [place] [facility] [place] [address] ProviderSharee MD [address] [place], [place] [phone] Social History Tobacco Use Types Packs/Day Years Used Date Smoking Tobacco: Never Assessed Sex and Gender Information Value Date Recorded Sex Assigned at Not on file Legal Sex Male 4:43 PM CDT Gender Identity Not on file Sexual Orientation Not on file documented as of this encounter Miscellaneous Notes * [employer]ner Conversion Note - Historical ProviderMD - 10/02/2020 9:15 AM LASER BEAM TRIM OPERATOR Stroke/Warfarin Instructions Entered On: 10/02/2020 9:15 EST Performed On: 10/02/2020 9:15 EST by YOSSI FRY RN Stroke/Warfarin Instructions Stroke/TIA Discharge Ins : N/A Warfarin Discharge Ins : N/A YOSSI FRY RN - 10/02/2020 9:15 EST Electronically signed by Enedina [facility] Conversion Plastic Top Assembler Cerner at 11/11/2022 11:31 AM CDT documented in this encounter Plan of Treatment Not on file documented as of this encounter Visit Diagnoses Not on filedocumented in this encounter
--- OUTSIDE RECORDS SUMMARY | 2025-03-05 07:11 | XMS_ITS | Encounter Summary ---
Author Organization [employer] ([place], [place], [place], [place]) Address [address] [place] [address] Care Team Providers Care Central Supply Aide Name Role Phone Unavailable Primary Care Provider Unavailabl e Encounter Details Date Type Department Care Team (Late st Contact Info) Description 10/02/2020 Transcribed Document [facility] Neurology - [address] [facility] [address] [place] [phone] Junior Kirk MD [facility] [place] [address] Social History Tobacco Use Types [...]
--- OUTSIDE RECORDS SUMMARY | 2025-03-05 07:11 | XMS_ITS | Referral Summary ---
Author Organization [employer] ([place], [place], [place], [place]) Address [address] [place] [address] Care Team Providers Care Pulp Cooker Name Role Phone Unavailable Primary Care Provider [...]
--- OUTSIDE RECORDS SUMMARY | 2025-03-05 07:11 | XMS_ITS | Encounter Summary ---
Author Organization [employer] ([place], [place], [place], [place]) Address [address] [place] [address] Care Team Providers Care Shelf Drier Operator Name Role Phone Unavailable Primary Care Provider Unavailabl e Encounter Details Date Type Department Care Team (Late st Contact Info) Description 10/01/2020 Transcribed Document [facility] Family Medicine [facility] [place] [address] ProviderSharee MD [address] [place] [address] Social History Tobacco Use Types Packs/Day Years Used Date Smoking Tobacco: Never Assessed Sex and Gender Information Value Date Recorded Sex Assigned at Not on file Legal Sex Male 4:43 PM CDT Gender Identity Not on file Sexual Orientation Not on file documented as of this encounter Miscellaneous Notes * Cerner Conversion Note - Historical ProviderMD - 10/01/2020 8:50 AM HOOP PUNCH AND COILER OPERATOR HELPER [facility] Main OR IntraOp Summary Primary Physician: ANDREW WATSON MD-SNU Finalized Date/Time: 10/02/20 13:03:11 Pt. Name: ALESHA BAEZO.B./Sex: 1955 Male Med Rec #: [id number] Physician: ANDREW WATSON MD-SNU Financial #: [id number] Pt. Type: O Room/Bed: [facility] Admit/Disch: 10/01/20 07:57:00 - Institution: [facility] IntraOp Case Attendance Entry 1 Entry 2 Entry 3 Case Attendee ANDREW WATSON Byrd, Charlie D, RN LONG, PAULA R., ST MD-SNU Role Performed Surgeon/Proceduralist, Van Helper, First Scrub, First First Time In 10/01/20 [...] Attendee ROSALINDA WAITE SANDRA D, Lucia Ferrari, BIAS CUTTING MACHINE OPERATOR VERTICAL Role Performed Physician assistant cross country coach Van Helper, First BIAS CUTTING MACHINE OPERATOR VERTICAL/Nurse Linesperson Time In 10/01/20 08:14:00 10/01/20 08:35:00 10/01/20 [...] OTHER, ATTENDEE #1 SUKHDEV JETT MD-BHAVANA Diagnostic Heavy Media Operator Role Performed School Childcare Attendant Vendor Anesthesiologist of Record Time In 10/01/20 [...] RN 10/01/20 10:25:15 10/01/20 08:53:48 10/01/20 10:25:15 [facility] IntraOp Case Attendance Audit 10/01/20 10:25:15 Marine Biologist: PHONG Modifier: [email or web address] 1 <+> Time Out [...] Fusion Anterior, Hardware Removal Spine 10/01/20 08:57:50 Marine Biologist: [email or web address] Modifier: [email or web address] 1 <*> Procedure Cervical [...] Fusion Anterior, Hardware Removal Spine 10/01/20 08:56:46 Marine Biologist: [email or web address] Modifier: [email or web address] 1 <*> Procedure Cervical [...] Role Performed <+> 9 Procedure 10/01/20 08:53:48 Marine Biologist: [email or web address] Modifier: [email or web address] 1 <*> Procedure Cervical [...] Procedure <+> 8 Other Attendee 10/01/20 08:43:27 Marine Biologist: [email or web address] Modifier: [email or web address] <+> 6 Case Attendee <+> 6 Role Performed <+> 6 Procedure <+> 7 Case Attendee <+> 7 Role Performed <+> 7 Procedure 10/01/20 08:41:41 Marine Biologist: [email or web address] Modifier: [email or web address] <+> 5 Case Attendee <+> 5 Role Performed <+> 5 Time In <+> 5 Time Out <+> 5 Procedure <+> 5 Other Attendee 10/01/20 08:34:50 Marine Biologist: [email or web address] Modifier: [email or web address] 1 <+> Time In 1 <*> Procedure Cervical Discectomy Fusion Anterior, Hardware Removal Spine 2 <+> Time In 2 <*> Procedure Cervical Discectomy Fusion Anterior, Hardware Removal Spine 3 <+> Time In 3 <*> Procedure Cervical Discectomy Fusion Anterior, Hardware Removal Spine 4 <+> Time In 4 <*> Procedure Cervical Discectomy Fusion Anterior, Hardware Removal Spine [facility] IntraOp Case Times Entry 1 Patient In Room Time 10/01/20 08:14:00 Out Room Time 10/01/20 10:25:00 Anesthesia Start Time 10/01/20 08:14:00 Stop Time 10/01/20 10:25:00 Surgery / Procedure Times Start Time 10/01/20 08:50:00 Stop Time 10/01/20 10:16:00 Last Modified By: Az Stack RN 10/01/20 10:17:01 [facility] IntraOp Case Times Audit 10/01/20 10:25:15 Marine Biologist: [email or web address] Modifier: [email or web address] <+> 1 Out Room Time <+> 1 Stop Time 10/01/20 10:17:01 Marine Biologist: [email or web address] Modifier: [email or web address] <+> 1 Stop Time 10/01/20 08:50:48 Marine Biologist: [email or web address] Modifier: [email or web address] <+> 1 Start Time [facility] IntraOp Cautery Entry 1 Entry 2 ESU Identification Cautery Type Monopolar ESU BiPolar ESU Cautery Type Comments ID Number [id number] ID Type Hospital Number Hospital Number Cautery [...] WDL After Comment Last Modified By: Az tSack RN Byrd, Charlie D, RN 10/01/20 08:47:48 10/01/20 08:47:48 [facility] IntraOp Communication Entry 1 Communication To Family/Significant other Comment START Communication By CHARLIE RAMIREZ RN Date and Time 10/01/20 08:51:00 Last Modified By: Az Stack RN 10/01/20 08:51:57 [facility] IntraOp Counts Verification Entry 1 Procedure Cervical Discectomy Fusion Anterior, Hardware Removal Spine Count Info Count Type Sponge, Sharps, Miscellaneous Counts Verification Baseline/pre-procedure Sequence Count Results Not Applicable Counts Performed By Count Performed By JAZZMINE MIRANDA ST (Scrub) Count Performed By Az Stack RN (RN) Last Modified By: Az Stack RN 10/01/20 08:43:02 [facility] IntraOp Counts Final Entry 1 Procedure Cervical Discectomy Fusion Anterior, Hardware Removal Spine Final Count Info Count Type Sponge, Sharps, Miscellaneous Counts Verification Skin Closure/end of Sequence procedure Count Results Correct, surgeon notified Counts Performed By Count Performed By JAZZMINE MIRANDA ST (Scrub) Count Performed By Az Stack RN (RN) Last Modified By: Az Stack RN 10/01/20 10:11:07 [facility] IntraOp Cultures and Spec Summary Entry 1 Cultrures and Specimens Specimen Ordered: Yes Test(s) Routine/Path-Lab Requested/Final Disposition Last Modified By: Az Stack RN 10/01/20 09:03:08 General Comments: A. EXPLANTED HARDWARE [facility] IntraOp Delays Entry 1 Delay Reason Surgeon late - did not call Duration 14 Minute(s) Last Modified By: Az Stack RN 10/01/20 08:48:03 [facility] IntraOp Departure from OR Entry 1 Integumentary Assessment Integumentary WDL Assessment WDL Transfer/Handoff Transfer to PACU Phase I Handoff Method Bedside/Face to face, Phone call Post-op Transport Stretcher/Mattyney Via Patient Transport ROSALINDA WAITE, Accompanied by Lucia Wren CRNA Last Modified By: Az Stack RN 10/01/20 09:00:29 [facility] IntraOp Drains and Tubes Entry 1 Device Type Tre Drain Size 10 FR Drain/Tube Activity Inserted Drain/Tube Suction Bulb Drain/Tube Drainage Serosanguineous Device Location OP SITE Method of Drainage Compression Last Modified By: Az Stack RN 10/01/20 10:11:44 [facility] IntraOp Dressing and Packing Entry 1 Type Dressing Location OP SITE Wound Dressing Item Occlusive dressing, Skin adhesive, Steristrip Applied By ROSALINDA WAITE Last Modified By: Az Stack RN 10/01/20 09:01:05 [facility] IntraOp Fire Risk Assessment Entry 1 Fire [...] Modified By: Az Stack RN 10/01/20 08:52:06 [facility] IntraOp General Case Cyber Security Instructor 1 Case Information OR OR 11 [facility] Case Level 1 Room Verified Yes Wound Class II - Clean-Contaminated Specialty SN Neurosurgery Anesthesia Type General ASA Class 3 Diagnosis Preop Diagnosis CERVICAL STENOSIS Postop Same As Preop No Postop Diagnosis SEE MD POST OP N0TE Last Modified By: Az Stack RN 10/01/20 08:53:00 [facility] IntraOp Implant Log Entry 1 Entry 2 Entry 3 Type Tissue Implant Implant (Synthetic) Implant (Synthetic) (Biologic) Implant Log Implant Type Hardware Hardware Tissue Implant Type Bone Implant BONE VIVIGEN FORMABLE [id number] EIT CIF H 6MM [id number] EIT CIF H 5MM Identification -[id number] CAGE L CAGE Description Implant Quantity 1 1 1 Implant Site OP SITE OP SITE OP SITE Implant [id number] Identification Model Number Implant Identification Serial Number Implant [id number] Identification Lot Number Implant Lifenet:Lifenet Identification Transplant Srv Kiss Machine Operator Name: Implant [id number] Identification Catalog Number Implant Size Implant Has an Yes Yes Yes Expiration Date Implant Expiration 09/18/21 12/22/24 04/23/24 Date Wasted Radioactive Material Time Implanted Tissue Implant Continue for Tissue Implant Documentation Tissue Identification Number Graft Prep Per Kiss Machine Operator Instructions: Tissue Preparation Method: Reconstitution Solution: Reconstitution Solution Lot Number Reconstitution Solution Expiration Date: Thawing Solution Thawing Solution Lot Number Thawing Solution Expiration Date Preparation Materials, Other Preparation Materials, Other Lot Number Preparation Materials, Other Expiration Date Tissue Prepared/Processed By Kiss Machine Operator Paperwork Completed Implant Type Comment Last Modified By: Az Stack RN Byrd, Charlie D, RN Byrd, Charlie D, RN 10/01/20 09:27:04 10/01/20 09:38:34 10/01/20 09:52:01 Entry 4 Entry 5 Entry 6 Type Implant (Synthetic) Implant (Synthetic) Implant (Synthetic) Implant Log Implant Type Hardware Hardware Hardware Tissue Implant Type Implant PLT ANT SKYLN HYBRD SCR SKYLN VARI SD SCR SKYLN VARI SD Identification [id number] Description Implant Quantity 1 2 4 Implant Site OP SITE OP SITE OP SITE Implant Identification Model Number Implant Identification Serial Number Implant Identification Lot Number Implant J&J:Depuy:Depuy Spine J&J:Depuy:Depuy Spine J&J:Depuy:Depuy Spine Identification Kiss Machine Operator Name: Implant [id number] Identification Catalog Number Implant Size Implant Has an Expiration Date Implant Expiration Date Wasted Radioactive Material Time Implanted Tissue Implant Continue for Tissue Implant Documentation Tissue Identification Number Graft Prep Per Kiss Machine Operator Instructions: Tissue Preparation Method: Reconstitution Solution: Reconstitution Solution Lot Number Reconstitution Solution Expiration Date: Thawing Solution Thawing Solution Lot Number Thawing Solution Expiration Date Preparation Materials, Other Preparation Materials, Other Lot Number Preparation Materials, Other Expiration Date Tissue Prepared/Processed By Kiss Machine Operator Paperwork Completed Implant Type Comment Last Modified By: Az Stack RN Byrd, Charlie D, RN Byrd, Charlie D, RN 10/01/20 10:10:45 10/01/20 10:10:45 10/01/20 10:10:45 [facility] IntraOp Implant Log Audit 10/01/20 10:10:45 Marine Biologist: PHONG Modifier: PHONG <+> 4 Implant Identification Description <+> 4 Implant Identification Kiss Machine Operator Name: <+> 4 Implant Site <+> 4 Implant Quantity <+> 4 Implant Identification Catalog Number <+> 4 Implant Type <+> 4 Type <+> 5 Implant Identification Description <+> 5 Implant Identification Kiss Machine Operator Name: <+> 5 Implant Site <+> 5 Implant Quantity <+> 5 Implant Identification Catalog Number <+> 5 Implant Type <+> 5 Type <+> 6 Implant Identification Description <+> 6 Implant Identification Kiss Machine Operator Name: <+> 6 Implant Site <+> 6 Implant Quantity <+> 6 Implant Identification Catalog Number <+> 6 Implant Type <+> 6 Type 10/01/20 09:52:01 Marine Biologist: PHONG Modifier: PHONG <+> 3 Implant Identification Description <+> 3 Implant Identification Lot Number <+> 3 Implant Expiration Date <+> 3 Implant Site <+> 3 Implant Quantity <+> 3 Implant Type <+> 3 Implant Has an Expiration Date <+> 3 Type 10/01/20 09:38:34 Marine Biologist: PHONG Modifier: PHONG <+> 2 Implant Identification Description <+> 2 Implant Identification Lot Number <+> 2 Implant Expiration Date <+> 2 Implant Site <+> 2 Implant Quantity <+> 2 Implant Type <+> 2 Implant Has an Expiration Date <+> 2 Type [facility] IntraOp Intraoperative Assessment Entry 1 Handoff Method [...] Modified By: Az Stack RN 10/01/20 08:54:04 [facility] IntraOp Intraoperative Equipment Entry 1 Type Equipment Equipment Equipment Ami Suction System ID Number [id number] Setting 160 MM HG Intraop Monitoring Electrocardiogram Five lead placement (ECG) Electrode Placement Blood Pressure Non-Invasive BP Device Source Blood Pressure Arm, right upper Location Pulse Oximeter Hand, left Probe Site Antiembolic Devices Antiembolic Devices Sequential compression device, knee high Antiembolic Device Bilateral Location Antiembolic Device [id number] ID Number Scopes Photo/Video Documentation Last Modified By: Az Stack RN 10/01/20 08:54:45 [facility] IntraOp Medication Admin Entry 1 Entry 2 Entry 3 Medication/Irrigant Bacitracin 50,00units lidocaine 1% w/ Neosporin 15Gm ointment powder vial epinephrine 1:100,000 - [id number] 30ml vial - [id number] Combo Med List Time Administered Route of ADDED TO NS IRRIGATION LOCAL TOPICAL Administration Dose Dose 31099 4 1 Unit of Measure units ml [...] SPNG SURGFOAM thrombin 5000units MATRIX FLOSEAL HEMO [id number] topical powder - 10ML [id number]-[id number] Combo Med List Time Administered Route of [...] RN 10/01/20 08:56:29 10/01/20 08:56:29 10/01/20 09:18:38 [facility] IntraOp Medication Admin Audit 10/01/20 09:18:38 Marine Biologist: PHONG Modifier: [email or web address] <+> 6 Medication/Irrigant <+> 6 Route of Administration <+> 6 Administered By <+> 6 Dose <+> 6 Unit of Measure [facility] IntraOp Patient Positioning Entry 1 Procedure Cervical [...] Modified By: Az Stack RN 10/01/20 08:57:41 [facility] IntraOp Sign In Entry 1 Patient, Site, [...] Modified By: Az Stack RN 10/01/20 09:00:12 [facility] IntraOp Sign In Audit 10/01/20 09:00:12 Marine Biologist: PHONG Modifier: [email or web address] <+> 1 Difficult Airway/Aspiration Risk <+> 1 Difficult Airway/Aspiration Intervention Equipment Available <+> 1 Blood Identifiers Verified Per Policy [facility] IntraOp Sign Out Entry 1 RN Confirmation [...] Modified By: Az Stack RN 10/01/20 10:22:40 [facility] IntraOp Sign Out Audit 10/01/20 10:25:28 Marine Biologist: PHONG Modifier: [email or web address] <+> 1 RN Sign Out Signature Date/Time 10/01/20 10:22:40 Marine Biologist: PHONG Modifier: [email or web address] <+> 1 RN Sign Out Signature <+> 1 Urinary Catheter Documented in IView [facility] IntraOp Skin Prep Entry 1 Procedure Cervical Discectomy Fusion Anterior, Hardware Removal Spine Prescribed Yes Pre-Surgical Prep Completed Prep Area OP SITE AFTER ALCOHOL AND HIBICLENS PREP PER DR FIGUEROAT Intraop Prep Integumentary WDL Assessment WDL Prep Agents Alcohol, Chlorhexadine gluconate, DuraPrep Prep by CHARLIE RAMIREZ RN Hair Removal Methods No hair removal performed Last Modified By: Az Stack RN 10/01/20 08:42:11 [facility] IntraOp Surgical Procedures Entry 1 Entry 2 Procedure Cervical Discectomy Hardware Removal Spine Fusion Anterior Modifiers Additional (C3-4 ,4-5 ACDF AND Procedure HARWARE REMOVAL WITH Description CHIN STRAP TRACTION) Primary Procedure Yes No Primary Surgeon ANDREW WATSON, NADREW WATSON MD-SNAmisha RAIN-SNU Start 10/01/20 08:50:00 10/01/20 08:50:00 Stop 10/01/20 10:16:00 10/01/20 10:16:00 Physician States Cecum Reached Anesthesia Type General General Specialty SN Neurosurgery SN Neurosurgery Wound Class I - Clean II - Clean-Contaminated Last Modified By: Az Stack RN Byrd, Charlie D, RN 10/01/20 08:55:17 10/01/20 08:55:17 [facility] IntraOp Surgical Procedures Audit 10/01/20 10:17:02 Marine Biologist: [email or web address] Modifier: [email or web address] <+> 1 Stop <+> 2 Stop [facility] IntraOp Temp Regulation Devices Entry 1 Temp Regulation Temperature Forced Air Warming Regulation Device device, Warm blankets Temperature 08835 Regulation Device Serial/Unit Number Temperature Lower body Regulation Site Temperature Device 43 C Setting Temperature Az Stack RN Regulation Device Applied by [facility] Modified By: Az Stack RN 10/01/20 08:55:13 [facility] IntraOP Time Out Entry 1 Procedure to [...] Modified By: Az Stack RN 10/01/20 08:50:46 [facility] IntraOP Time Out Audit 10/01/20 08:50:46 Marine Biologist: PHONG Modifier: PHONG 1 <+> Time Out Pause Time 1 <*> Procedure to be Performed Cervical Discectomy Fusion Anterior, Hardware Removal Spine [facility] IntraOp X-Ray and Images Entry 1 X-Ray/Imaging Type Fluoroscopy Fluoroscopy Type C-Arm Site OP SITE Water Plant Operator Name Lizabeth Cely, Diagnostic Heavy Media Operator Last Modified By: Az Stack RN 10/01/20 08:54:56 Case Comments <None> Finalized By: KATELIN CHEN Document Signatures Signed By: Az Stack RN 10/01/20 10:25 KATELIN CHEN 10/02/20 13:03 Unfinalized History Date/Time Username Reason for Unfinalizing Freetext Reason for Unfinalizing 10/02/20 13:00 WATTSDR Correct Billing documented in this encounter Plan of Treatment Not on file documented as of this encounter Visit Diagnoses Not on filedocumented in this encounter
--- OUTSIDE RECORDS SUMMARY | 2025-03-05 07:11 | XMS_ITS | Encounter Summary ---
Author Organization [employer] ([place], [place], [place], [place]) Address [address] [place] [address] Care Team Providers Care Cloth Bale Header Name Role Phone Unavailable Primary Care Provider Unavailabl e Encounter Details Date Type Department Care Team (Late st Contact Info) Description 10/01/2020 Transcribed Document [facility] Family Medicine [facility] [place] [address] ProviderSharee MD [address], [place] [id number] Social History Tobacco Use Types Packs/Day Years Used Date Smoking Tobacco: Never Assessed Sex and Gender Information Value Date Recorded Sex Assigned at Not on file Legal Sex Male 4:43 PM CDT Gender Identity Not on file Sexual Orientation Not on file documented as of this encounter Miscellaneous Notes * Cerner Conversion Note - Historical ProviderMD - 10/01/2020 10:18 AM LOCATOR Evaluation, Occupational Therapy Entered On: 10/01/2020 14:54 [...] Brady STUDENT-OCCUPATIONAL THERAPIST - 10/01/2020 14:48 EST Halfway Goals, OT Grooming LTG Grid Goal #1 [...] 10/01/2020 14:48 EST Electronically signed by Enedina [facility] Conversion Junior Network Engineer Cerner at 11/11/2022 11:33 AM CDT documented in this encounter Plan of Treatment Not on file documented as of this encounter Visit Diagnoses Not on filedocumented in this encounter
--- OUTSIDE RECORDS SUMMARY | 2025-03-05 07:11 | XMS_ITS | Clinical Summary ---
Author Organization Healthcare Address [address] [place] [address] Care Team Providers Care Logging Crew Foreman Name Role Phone Gabino Marin MD Primary Care Provider + [phone] Family History Medical History Relation Name Comments [...] of Treatment Not on file Care Teams Logging Crew Foreman Relationship Specialty Start Date End Date Gabino Marin MD [address] [place] [id number] PCP - General 12/05/20
--- OUTSIDE RECORDS SUMMARY | 2025-03-05 07:11 | XMS_ITS | Encounter Summary ---
Author Organization [employer] ([place], [place], [place], [place]) Address [address] [place] [address] Care Team Providers Care Safety Fire Boss Name Role Phone Unavailable Primary Care Provider Unavailabl e Encounter Details Date Type Department Care Team (Late st Contact Info) Description 10/02/2020 Transcribed Document [facility] [place] [facility] Family Medicine [address] [place] [address] ProviderSharee MD [address] [place], [place] [id number] Social History Tobacco Use Types Packs/Day Years Used Date Smoking Tobacco: Never Assessed Sex and Gender Information Value Date Recorded Sex Assigned at Not on file Legal Sex Male 4:43 PM CDT Gender Identity Not on file Sexual Orientation Not on file documented as of this encounter Miscellaneous Notes * Cerner Conversion Note - Sharee ProviderMD - 10/02/2020 1:55 PM SOCK LINING EXAMINER Initial Discharge Planning Entered On: 10/02/2020 13:57 EST Performed On: 10/02/2020 13:55 EST by GERMAN HAILE RN-Calculation Clerk Initial Assessment I Previously Documented Living Environment [...] have PCP Listed? : Yes GERMAN HAILE RN-Calculation Clerk - 10/02/2020 13:55 EST Initial Assessment II Sensory and Motor Deficits : None Does the Patient have a Floor to SNF Benefit? : No GERMAN HAILE RN-Calculation Clerk - 10/02/2020 13:55 EST Discharge Needs I Anticipated Discharge Date : 10/02/2020 EST Anticipated Discharge To, CM : Home with family care Current Home Treatment/Equipment : Current Home Treatment/Equipment No qualifying data available. Post Acute/Home Treatments : None Documentation Status Complete : Yes GERMAN HAILE RN-Calculation Clerk - 10/02/2020 13:55 EST Discharge Needs II Professional Skilled Services : Professional Skilled Services No qualifying data available. Needs Assistance with Transportation : No GERMAN HAILE RN-Calculation Clerk - 10/02/2020 13:55 EST Narrative Note Narrative Note : 65yo male pt s/p C3-5 ACDF. Pt ambulated 120ft with therapy yesterday and has been ambulating in halls independently today. No CM needs noted. Pt dc'd home with family. GERMAN HAILE RN-Calculation Clerk - 10/02/2020 13:55 EST Electronically signed by Nacho Mcconnell Conversion Instructor Trainer Canine Service Cerner at 11/11/2022 11:27 AM CDT documented in this encounter Plan of Treatment Not on file documented as of this encounter Visit Diagnoses Not on filedocumented in this encounter
--- OUTSIDE RECORDS SUMMARY | 2025-03-05 07:11 | XMS_ITS | Encounter Summary ---
Author Organization [employer] ([place], [place], [place], [place]) Address [address] [place] [address] Care Team Providers Care Pupil Personnel Worker Name Role Phone Unavailable Primary Care Provider Unavailabl e Encounter Details Date Type Department Care Team (Late st Contact Info) Description 10/01/2020 Transcribed Document [facility] [place] [facility] [place] [address] ProviderSharee MD [address], [place] [phone] Social History Tobacco Use Types Packs/Day Years Used Date Smoking Tobacco: Never Assessed Sex and Gender Information Value Date Recorded Sex Assigned at Not on file Legal Sex Male 4:43 PM CDT Gender Identity Not on file Sexual Orientation Not on file documented as of this encounter Miscellaneous Notes * Cerner Conversion Note - Sharee ProviderMD - 10/01/2020 8:50 AM BAG FILLER MACHINE OPERATOR [facility] Main OR PACU Summary Primary Physician: ANDREW WATSON MD-[facility] Finalized Date/Time: 10/01/20 14:29:00 Pt. Name: WERNER BAEZ/Sex: 1955 Male Med Rec #: [id number] Physician: ANDREW WATSON MD-SN Financial #: [id number] Pt. Type: O Room/Bed: [facility]/1 Admit/Disch: 10/01/20 07:57:00 - Institution: [facility] Main OR PACU I Case Times Entry 1 In PACU I 10/01/20 10:27:00 Ready for PACU 10/01/20 11:38:00 Discharge Discharge from PACU 10/01/20 11:38:00 I Last Modified By: MICHAEL WITT RN 10/01/20 14:28:52 Finalized By: MICHAEL WITT, RN Document Signatures Signed By: MICHAEL WITT RN 10/01/20 14:28 Electronically signed by Enedina [facility] Conversion Spring Tester Cerner at 11/11/2022 11:30 AM CDT documented in this encounter Plan of Treatment Not on file documented as of this encounter Visit Diagnoses Not on filedocumented in this encounter
--- OUTSIDE RECORDS SUMMARY | 2025-03-05 07:11 | XMS_ITS | Clinical Summary ---
Author Organization [employer] Address [address] [place] [address] Phone [email or web address] Care Team Providers Care Mental Measurements Teacher Name Role Phone Unavailable Primary Care Provider Unavailabl e Allergies No known active allergies Medications atorvastatin (LIPITOR) 40 MG tablet 05/24/2018 Active ergocalciferol (VITAMIN D2) 41396 units capsule 05/24/2018 Activ e LIPOFEN 150 [...]
--- OUTSIDE RECORDS SUMMARY | 2025-03-05 07:11 | XMS_ITS | Encounter Summary ---
Author Organization [employer] ([place], [place], [place], [place]) Address [address] [place] [address] Care Team Providers Care Inside Upholsterer Name Role Phone Unavailable Primary Care Provider Unavailabl e Encounter Details Date Type Department Care Team (Late st Contact Info) Description 10/01/2020 Transcribed Document [facility] [place] Family Medicine [address] [place] [address] ProviderSharee MD [address], [place] [id number] Social History Tobacco Use Types Packs/Day Years Used Date Smoking Tobacco: Never Assessed Sex and Gender Information Value Date Recorded Sex Assigned at Not on file Legal Sex Male 4:43 PM CDT Gender Identity Not on file Sexual Orientation Not on file documented as of this encounter Miscellaneous Notes * Cerner Conversion Note - Historical ProviderMD - 10/01/2020 5:00 PM CERAMIC TILE MECHANIC Chart Check - Review Order Profile Entered On: 10/01/2020 18:32 EST Performed On: 10/01/2020 17:00 EST by DANITZA VILLAFANA RN Chart Check Powerplans Initiated/Discontinued as Appropriate : Yes All Active Orders Reviewed : Yes DANITZA VILLAFANA RN - 10/01/2020 18:32 EST Electronically signed by Enedina [facility] Conversion Metal Fabrication Supervisor Cerner at 11/11/2022 11:30 AM CDT documented in this encounter Plan of Treatment Not on file documented as of this encounter Visit Diagnoses Not on filedocumented in this encounter
--- OUTSIDE RECORDS SUMMARY | 2025-03-05 07:11 | XMS_ITS | Encounter Summary ---
Author Organization [employer] ([place], [place], [place], [place]) Address [address] [place] [address] Care Team Providers Care Street Supervisor Name Role Phone Unavailable Primary Care Provider Unavailabl e Encounter Details Date Type Department Care Team (Late st Contact Info) Description 10/02/2020 Transcribed Document [facility] [place] [facility] [place] [address] ProviderSharee MD [address] [place] [address] Social History Tobacco Use Types Packs/Day Years Used Date Smoking Tobacco: Never Assessed Sex and Gender Information Value Date Recorded Sex Assigned at Not on file Legal Sex Male 4:43 PM CDT Gender Identity Not on file Sexual Orientation Not on file documented as of this encounter Miscellaneous Notes * Cerner Conversion Note - Sharee ProviderMD - 10/02/2020 12:08 PM FITNESS TRAINER [facility] [place], [place] [id number] WERNER BAEZ :1955 Visit Time:10/01/2020 Your Visit Summary Your Care Team Admitting Physician - ANDREW WATSON MD-BETSY Attending Physician - ANDREW WATSON MD-U Primary Care Physician - JAKUB JUSTICE (REF)MD-[facility] Referring Physician - ANDREW WATSON MD-BETSY Your [...] on 10/06 2. Diclofenac 3. Avoid all Cdaj-Fho-Qcfqspw NSAIDs (Non-Steroidal Anti-Inflammatories) such as Motrin (ibuprofen) and Aleve (naproxen) for 2 months Discharge Activity: don collar when up and about, Discharge Activity: No heavy lifting over 10 lbs Diet: Discharge Diet: Resume usual diet as tolerated Follow-Up Appointments Follow Up with ANDREW WATSON When 11/06/2020 01:00 PM EDT Comments Please go to the [facility] at 12:15 for x-rays before going to your appointment at 1:00. Where: [address] [place] [address] [facility] (1) Medications What How Much When Instructions Next Dose acetaminophen-hydrocodone (Winsted 7.5 mg-325 mg oral tablet) 1 Tablet(s) [...] and water are not available, use hand embossing machine tender. ? Change your dressing as told by [...] Managing pain, stiffness, and swelling ??? Take jmar-mho-aicfxrh and prescription medicines only as told by [...] keep your urine pale yellow. ? Take smat-sft-ivgusdx or prescription medicines. ? Eat foods that [...] 08/06/2016 Document Revised: 04/05/2019 Document Reviewed: 04/05/2019 [employer] Patient Education ?? 2020 [employer]. acetaminophen and hydrocodone (a SEET a MIN oh fen and yuri FIGUEROA done) Hycet, Lorcet, Winsted, Verdrocet, Vicodin, Xodol, Zamicet What is the [...] may report side effects to FDA at 0-549-ATC-1557. What other drugs will affect acetaminophen and [...] affect acetaminophen and hydrocodone, including prescription and cafb-srv-nkcsfeu medicines, vitamins, and herbal products. Not all [...] to ensure that the information provided by [employer] ('[employer]') is accurate, up-to-date, and complete, but no guarantee is made to that effect. Drug information contained herein may be time sensitive. [employer] information has been compiled for use by healthcare practitioners and consumers in the [place] and therefore [employer] does not warrant that uses outside of the [place] are appropriate, unless specifically indicated otherwise. [employer] drug information does not endorse drugs, diagnose patients or recommend therapy. [employer] drug information is an informational resource designed [...] effective or appropriate for any given patient. [employer] does not assume any responsibility for any aspect of healthcare administered with the aid of information [employer] provides. The information contained herein is not intended to cover all possible uses, directions, precautions, warnings, drug interactions, allergic reactions, or adverse effects. If you have questions about the drugs you are taking, check with your doctor, nurse or pharmacist. Copyright 8000-3657 [employer]. Version: 16.03. Revision Date: 08/26/2020. Emergency Awareness [...] Assistance with quitting is available by contacting 4-708-FKZS-NOW. This is a free resource providing counseling, [...] ) Urine Bilirubin Dipstick: Negative Urine Specific [place]: 1.007 -- Normal range between ( 1.005 [...] was given the opportunity to ask questions. Patient/Medical Dermatologist Name: Patient/Medical Dermatologist Signature: Relationship to Patient: Clinician/Hospital Medical Dermatologist Signature: Date: documented in this encounter Plan of Treatment Not on file documented as of this encounter Visit Diagnoses Not on filedocumented in this encounter
--- OUTSIDE RECORDS SUMMARY | 2025-03-05 07:11 | XMS_ITS | Encounter Summary ---
Author Organization [employer] ([place], [place], [place], [place]) Address [address] [place] [address] Care Team Providers Care Hose Inspector And Patcher Name Role Phone Unavailable Primary Care Provider Unavailabl e Encounter Details Date Type Department Care Team (Late st Contact Info) Description 09/26/2020 Transcribed Document [facility] [place] Family Medicine [facility] [place] [address] ProviderSharee MD [address], [place] [id number] Social History Tobacco Use Types Packs/Day Years Used Date Smoking Tobacco: Never Assessed Sex and Gender Information Value Date Recorded Sex Assigned at Not on file Legal Sex Male 4:43 PM CDT Gender Identity Not on file Sexual Orientation Not on file documented as of this encounter Miscellaneous Notes * Cerner Conversion Note - Historical ProviderMD - 09/26/2020 9:25 AM SUPERVISOR LANDSCAPE PAT Adult Entered On: 09/26/2020 9:26 EST [...] Source : Measured Height Entry Format : [place] Height, Feet : 0 ft(Converted to: 0 cm, 0 Inch) Height, Inches : 71 Inch(Converted to: 5 ft 11 Inch, 180.34 cm) Clinical Height : 180.34 cm Weight Source : Standing scale Weight Entry Format : [place] Clinical Dosing Weight : 82.27 kg Weight, Pounds : 181.0 lb Body Surface Area (BSA) : 2.02 m2 Body Mass Index : 25.3 kg/m2 (HI) [place] Body Weight : 74 kg MOO MATIAS RN - 09/29/2020 8:42 EST Health Histories Smoking Status : Never (less than 100 in lifetime; none in last 30 days) Smokeless Tobacco Status : Never Implant/Device Type, Service Delivery Consultant and Model : right hip replacement hardware [...] Jason Martinez Rn - 09/26/2020 9:26 EST [place] Suicide Severity Rating Scale (C-SSRS) CSSRS Past [...] Arrival on Unit : Ambulatory Support Person/Patient Architectural Wood Model Maker : Yes Support Person/Pt Rep Name : Hortencia Baez - Support Person/Pt Rep Contact Information : [phone] Want Family/Rep/Phys Notified of Admit : No Jason Martinez Rn - 09/26/2020 9:26 EST Emergency Contact #1 : `Hortencia Baez Emergency Contact #1 ` Emergency Contact #1 Relationship : spouse` MOO MATIAS RN - 09/29/2020 9:06 EST Emergency Contact #2 : ` Emergency Contact #2 Phone Number : ` Emergency Contact #2 Relationship : ` Information Obtained From : Patient Primary Language : Latvian Preferred Communication Mode : Verbal Communication Barrier : None Nursing Home Director Needed : No Jason Martinez Rn - [...]
--- OUTSIDE RECORDS SUMMARY | 2025-03-05 07:11 | XMS_ITS | Encounter Summary ---
Author Organization [employer] ([place], [place], [place], [place]) Address [address] [place] [address] Care Team Providers Care Teacher Asst Name Role Phone Unavailable Primary Care Provider Unavailabl e Encounter Details Date Type Department Care Team (Late st Contact Info) Description 10/02/2020 Transcribed Document [facility] [place] [facility] [place] [address] ProviderSharee MD [address] [place] [address] Social History Tobacco Use Types Packs/Day Years Used Date Smoking Tobacco: Never Assessed Sex and Gender Information Value Date Recorded Sex Assigned at Not on file Legal Sex Male 4:43 PM CDT Gender Identity Not on file Sexual Orientation Not on file documented as of this encounter Miscellaneous Notes * Cerner Conversion Note - Historical ProviderMD - 10/02/2020 12:15 PM SODA DRY HOUSE OPERATOR UM Authorization Entered On: 10/02/2020 12:15 EST Performed On: 10/02/2020 12:15 EST by Stacy Bellamy Rn-Utilization Review Primary Insurance Authorization Authorization and Policy Numbers : Insurance 1 Health Plan: [facility] Policy Number: [id number] Authorization Number: [id number] Insurance Primary Name : Cash [id number] Authorization Number-Primary : OUT PT Auth# [id number] Authorized Service Begin Date-Primary : 10/01/2020 EST Historical Authorization Comments-Primary : Comment 1: pt is blair for OUT PT Cervical discectomy Fusion Anterior Hardware Removal Spone on 10-01-20 Cor[place]on OP Auth# [id number] (LUCY ALEMAN, Academic Support Coordinator 09/30/2020 13:14) Stacy Bellamy Rn-Utilization Review - 10/02/2020 12:15 EST Electronically signed by Enedina, [facility] Conversion Fuel Operator Cerner at 11/11/2022 11:33 AM CDT documented in this encounter Plan of Treatment Not on file documented as of this encounter Visit Diagnoses Not on filedocumented in this encounter
--- OUTSIDE RECORDS SUMMARY | 2025-03-05 07:11 | XMS_ITS | Encounter Summary ---
Author Organization [employer] ([place], [place], [place], [place]) Address [address] [place] [address] Care Team Providers Care Restaurant Hospitality Manager Name Role Phone Unavailable Primary Care Provider Unavailabl e Encounter Details Date Type Department Care Team (Late st Contact Info) Description 10/02/2020 Transcribed Document [facility] [place] [facility] [place] [address] ProviderSharee MD [address] [place], [place] [id number] Social History Tobacco Use Types Packs/Day Years Used Date Smoking Tobacco: Never Assessed Sex and Gender Information Value Date Recorded Sex Assigned at Not on file Legal Sex Male 4:43 PM CDT Gender Identity Not on file Sexual Orientation Not on file documented as of this encounter Miscellaneous Notes * Cerner Conversion Note - Historical ProviderMD - 10/02/2020 1:15 PM STULL HEWER Attempt to Treat, PT Entered On: 10/02/2020 [...]
--- OUTSIDE RECORDS SUMMARY | 2025-03-05 07:11 | XMS_ITS | Encounter Summary ---
Author Organization [employer] ([place], [place], [place], [place]) Address [address] [place] [address] Care Team Providers Care Front Elevator Operator Name Role Phone Unavailable Primary Care Provider Unavailabl e Encounter Details Date Type Department Care Team (Late st Contact Info) Description 10/01/2020 Transcribed Document [facility] [address] [facility] [address] [place] [id number] Junior Kirk MD [address] [place] [address] Social History Tobacco Use Types Packs/Day [...] Problems Stented coronary artery / SNOMED CT 2367153221 / Confirmed Sleep apnea / SNOMED CT 355996253 / Confirmed Hyperlipidemia / SNOMED CT 45114426 / Confirmed History of obstructive sleep apnea / IMO [id number] / Confirmed Diabetes mellitus type II / SNOMED CT 20856576 / Confirmed Coronary artery disease / SNOMED CT 4364989002 / Confirmed Back pain / SNOMED CT 505374931 / Confirmed Avascular necrosis / SNOMED CT 5547391927 / Confirmed Allergic rhinitis / SNOMED CT 284491626 / Confirmed, Active Problems (9) Allergic rhinitis [...] finger tendon. CP3 x2. Cholecystectomy. Tonsillectomy. Colonoscopy ([id number]). wisdom teeth removal. right hip replacement. Social [...] ROM neck, RUE weakness. Integumentary: Warm, Dry, [place]. Neurologic: Alert, Oriented. Psychiatric: Cooperative, Appropriate mood [...]
--- OUTSIDE RECORDS SUMMARY | 2025-03-05 07:11 | XMS_ITS | Encounter Summary ---
Author Organization [employer] ([place], [place], [place], [place]) Address [address] [place] [address] Care Team Providers Care Hydrocrane Operator Name Role Phone Unavailable Primary Care Provider Unavailabl e Encounter Details Date Type Department Care Team (Late st Contact Info) Description 10/01/2020 Transcribed Document [facility] [place] Family Medicine [facility] [place] [address] ProviderSharee MD [address] [place] [address] Social History Tobacco Use Types Packs/Day Years Used Date Smoking Tobacco: Never Assessed Sex and Gender Information Value Date Recorded Sex Assigned at Not on file Legal Sex Male 4:43 PM CDT Gender Identity Not on file Sexual Orientation Not on file documented as of this encounter Miscellaneous Notes * Cerner Conversion Note - Historical ProviderMD - 10/01/2020 10:18 AM QUALITY AND RELIABILITY ENGINEER Evaluation, Physical Therapy Entered On: 10/01/2020 15:52 [...] LUIZ JOHNSON, PT - 10/01/2020 15:48 EST Residential Goals Mobility/Bed Mobility LTG PT Grid Goal [...] JOHNSON PT - 10/01/2020 15:[address] [facility] PT Charges PT Eval Moderate Complexity : 1 LUIZ JOHNSON, PT - 10/01/2020 15:48 EST documented in this encounter Plan of Treatment Not on file documented as of this encounter Visit Diagnoses Not on filedocumented in this encounter
--- OUTSIDE RECORDS SUMMARY | 2025-03-05 07:11 | XMS_ITS | Encounter Summary ---
Author Organization [employer] ([place], [place], [place], [place]) Address [address] [place] [address] Care Team Providers Care Financial Aid Officer Name Role Phone Unavailable Primary Care Provider Unavailabl e Encounter Details Date Type Department Care Team (Late st Contact Info) Description 10/02/2020 Transcribed Document [facility] [place] [facility] [place] [address] ProviderSharee MD [address], [place] [id number] Social History Tobacco Use Types Packs/Day Years Used Date Smoking Tobacco: Never Assessed Sex and Gender Information Value Date Recorded Sex Assigned at Not on file Legal Sex Male 4:43 PM CDT Gender Identity Not on file Sexual Orientation Not on file documented as of this encounter Miscellaneous Notes * Cerner Conversion Note - Sharee ProviderMD - 10/02/2020 12:07 PM FUNCTIONAL ANALYST Patient Education Materials Follows: Anterior Cervical Diskectomy [...] and water are not available, use hand manager six sigma. ? Change your dressing as told by [...] Managing pain, stiffness, and swelling ??? Take ssdc-psa-gadickd and prescription medicines only as told by [...] keep your urine pale yellow. ? Take kwip-yhx-ycpnhag or prescription medicines. ? Eat foods that [...] 08/06/2016 Document Revised: 04/05/2019 Document Reviewed: 04/05/2019 [employer] Patient Education ? 2020 [employer] documented in this encounter Plan of Treatment Not on file documented as of this encounter Visit Diagnoses Not on filedocumented in this encounter
--- NOTE | 2025-03-05 07:14 | US_ITS ---
FINAL REPORT TECHNIQUE: Sonographic images of the right upper quadrant were obtained. CLINICAL HISTORY: ELEVATED BILIRUBIN COMPARISON: None FINDINGS: PANCREAS: Unremarkable. LIVER: Fatty infiltration of the liver is present.. No focal hepatic lesion. No intrahepatic biliary ductal dilatation. The portal and hepatic veins are patent with normal directional flow. GALLBLADDER: The gallbladder is absent. COMMON DUCT: 5 mm. Normal for age. RIGHT KIDNEY: The right kidney measures 10.7 cm. There is no hydronephrosis, mass, or stone. Note is made of a small right upper pole cyst. FREE FLUID: None IMPRESSION: Prior cholecystectomy. Fatty infiltration of the liver. Reviewed, Interpreted and Dictated by Lora Rene MD Transcribed by Bev Mckenna Authenticated and [facility]
== END 2025-03-05 23:59 | disposition home or self-care (01) ==
LOC: RAD 07:09
PROVIDERS: PCP Internal Medicine Adolescent Medicine; Visit Provider Nurse Practitioner Family
DX: K76.0 Fatty (change of) liver, not elsewhere classified (principal); Z90.49 Acquired absence of other specified parts of digestive tract
CPT/HCPCS: 76705

== ENCOUNTER 2025-04-03 10:14 | Outpatient (CLI) | payer MEDICARE, SELFPAY ==
[2025-04-03 08:36] VITALS: BMI 23.3
--- NOTE | 2025-04-03 10:19 | XR_ITS ---
FINAL REPORT CLINICAL HISTORY: pre op shoulder surgery COMPARISON: 08/29/2023 FINDINGS: 2 views of the chest were obtained . The heart is normal in size. The mediastinum is within normal limits. The lungs are clear. There is no pneumothorax. Osseous structures are unremarkable. IMPRESSION: No acute cardiopulmonary process. Reviewed, Interpreted and Dictated by Lora Rene MD Transcribed by Vivi Martinez Authenticated and [facility]
--- OUTSIDE RECORDS SUMMARY | 2025-04-03 10:25 | XMS_ITS | Clinical Summary ---
Author Organization [facility] Address [address] [place] [address] Care Team Providers Care Oracle Technical Developer Name Role Phone Gabino Marin MD Primary Care Provider [phone] Family History Medical History Relation Name Comments [...] of Treatment Not on file Care Teams Oracle Technical Developer Relationship Specialty Start Date End Date Gabino Marin MD [address] [place] [address] PCP - General 12/05/20
--- OUTSIDE RECORDS SUMMARY | 2025-04-03 10:25 | XMS_ITS | Clinical Summary ---
Author Organization [facility] Address [address] [place] [address] Care Team Providers Care Marketing Professor Name Role Phone Provider, No Known Primary Care Provider [phone] Social History Tobacco Use Types Packs/Day Years [...] SCREEN ONCE 2022 COVID-19 Vaccine ( season) 2025 INFLUENZA VACCINE 04/24/2025 Insurance [facility] PPO Care Teams Marketing Professor Relationship Specialty Start Date End Date Provider, No Known [facility] [address] PCP - General 05/13/16
--- OUTSIDE RECORDS SUMMARY | 2025-04-03 10:25 | XMS_ITS | Clinical Summary ---
Author Organization [facility] Address [address] [place] [address] Phone [email or web address] Care Team Providers Care Tobacco Hanger Name Role Phone Unavailable Primary Care Provider Unavailabl e Allergies No known active allergies Medications atorvastatin (LIPITOR) 40 MG tablet 05/24/2018 Active ergocalciferol (VITAMIN D2) 53101 units capsule 05/24/2018 Activ e LIPOFEN 150 [...] 2007 Covid-19 Immunization (1 - 2 season) 2025 Influenza Immunization (#1) 2025 HIB Immunization Aged [...]
[2025-04-03 11:00] LABS: Hematocrit 41.2 % (42.0-52.0); Hemoglobin 13.8 g/dL (14.1-18.0); Immature Granulocytes % 0.5 %; Mean Corpuscular HGB Conc 33.5 g/dL (31.8-35.4); Mean Corpuscular Hemoglobin 30.6 pg (27.0-31.2); Mean Corpuscular Volume 91.4 fl (80-94); Nucleated Red Blood Cells % 0 %; Platelet Count 304 K/mm3 (142-424); Red Blood Count 4.51 M/mm3 (4.60-6.20); Red Cell Distribution Width-SD 45.8 fL; White Blood Count 6.2 K/mm3 (4.8-10.8)
[2025-04-03 11:08] LABS: Chloride 106 mmol/L (98-107); Potassium 4.0 mmoL/L (3.5-5.1); Sodium 138 mmol/L (136-145)
[2025-04-03 11:11] LABS: Anion Gap 12.0 mEq/L (5-15); Blood Urea Nitrogen 14 mg/dl (9-20); Carbon Dioxide 24 mmol/L (22.0-30.0); Creatinine Clearance Estimated 75 mL/min (50-200); Creatinine,Serum 0.60 mg/dl (0.66-1.25); Estimated Glomerular Filt Rate 134 ml/min (>60); GFR (African American) 163 ML/MIN (>60)
[2025-04-03 11:12] LABS: Calcium 9.4 mg/dl (8.4-10.2); Glucose 184 mg/dl (74-100)
== END 2025-04-03 23:59 | disposition home or self-care (01) ==
LOC: PREOP 10:15
PROVIDERS: PCP Internal Medicine Adolescent Medicine; Visit Provider Orthopaedic Surgery
DX: Z01.811 Encounter for preprocedural respiratory examination (principal); Z01.812 Encounter for preprocedural laboratory examination; Z01.818 Encounter for other preprocedural examination
CPT/HCPCS: 71046; 80048; 85025

== ENCOUNTER 2025-04-09 06:24 | Day surgery (SDC) | payer MEDICARE, SELFPAY ==
[2025-04-09] VITALS (11 sets, daily range): BP systolic 114–147; BP diastolic 62–96; PULSE 62–68; RESP 14–17; TEMP 36.6–38; O2SAT 94–96; BMI 23.3
[2025-04-09 07:23] LABS: POC Glucose,Bedside 123 gm/dL (70-110)
[2025-04-09] MEDS: LACTATED RINGERS 1000ML 1,000 ML 100 ML IV (07:26)
--- NOTE | 2025-04-09 08:35 | P.PNANES_ITS ---
[facility] Disclaimer: The information contained in this section may have been updated after the patient was seen, as this information can be updated by other users. Medical History Hypothyroidism HLD (hyperlipidemia) Diabetes CAD (coronary artery disease) Typical angina Surgical History History of uvulopalatopharyngoplasty History of carpal tunnel release History of fusion of cervical spine History of hip replacement History of cholecystectomy History of ankle surgery History of coronary artery stent placement Family History Other Family history of hyperlipidemia Family history of hypertension Family history of myocardial infarction Family history of stroke Social History Smoking Status: Never smoker alcohol intake: never substance use type: denies use current occupational status: retired Travel in the last 8 weeks?: Inside the [place] household members: spouse housing: house caffeine: No Have you lived/traveled outside US in past 30 days?: No Contact w/someone who lives/traveled outside US past 30 days?: No Exposure to someone with infectious disease in past 14 days?: No Do you have a fever (greater than 100.4 F or 38 C)?: No Have you tested positive for COVID-19?: No Exposed to someone with COVID-19 in past 14 days?: No Do you have a sore throat?: No Do you have a cough?: No Do you have any weakness?: No Do you have any diarrhea?: No Are you experiencing any unusual bleeding?: No Do you have any muscle aches/pain?: No Do you have any abdominal pain?: No Are you experiencing loss of taste or smell?: No [facility] Anesthesia Checklist Patient Identification Patient Identification: Arm Band Structural Data Admitted From: Home Planned Operative Procedure/s: Left Shoulder Arthroscopy Consent for Planned Operative Procedure(s) Verified: Yes Verified Documents: Surgical Consent and History and Physical NPO Status Verified Time NPO: 00:00 Additional verifications Anesthesia Reactions: No Hx Blood Transfusions: No Blood Transfusion Reaction: No Airway Assessment Mallampati Score:: Class II C-Spine Mobility Assessed: Yes TMJ Mobility Assessed: Yes Dentition: Good Dentition Neurological Assessment Level of Consciousness: Awake, Alert and Appropriate Anesthesia Plan Anesthesia Risk discussed: Yes Anesthesia Plan: Verified ASA Class: III Anesthesia Type: General w/block (Left Interscalene Nerve Block. Risks/benefits explained. Pt verbalized understanding)
[2025-04-09] MEDS: EPINEPHrine 1MG/ML 30ML VIAL 30 MG ×2 (08:48→09:24)
[2025-04-09] MEDS: SODIUM CHLORIDE IRRIG SOLUTION 6,000 ML 300 ML IR ×2 (08:48→09:21)
--- NOTE | 2025-04-09 10:01 | P.OP_ITS ---
Date of procedure: 04/09/25 Pre-op Diagnosis:: Left shoulder labral tear biceps tendon tear Post-op Diagnosis:: Same with severe subacromial bursitis and partial undersurface rotator cuff tear Procedure performed:: Left shoulder arthroscopy with extensive debridement (anterior labrum biceps undersurface rotator cuff subacromial bursa) Surgeon:: Kavon Glynn DO Medical Care Manager(s):: Damion VASQUEZ LAUNDRY MANAGER:: Renzo Feelou Anesthesia: GETA and regional Estimated blood loss (mL): 0 Operative findings:: As above severe subacromial bursitis fraying and tearing of the anterior labrum but no detachment near complete full-thickness biceps tendon tear with incarcerated biceps tissue in the glenohumeral joint small undersurface rotator cuff partial tear less than 10% Operative note:: Patient identified preoperatively. Left shoulder marked with yes and my initials. Underwent a block with anesthesia and then taken to the operating room placed upon operating bed. General anesthesia administered airway secured. Then placed in the lateral position with a beanbag and all bony prominences well-padded and the left arm was placed in line traction with the arm vallecillo. The left shoulder was then prepped and draped in normal sterile fashion once prepped and draped final operative timeout performed to identify proper patient procedure and extremity. Everyone involved in the case agreed. There were no counter indications to beginning. Did receive preoperative antibiotics. Marking pen was used to daniel the bony landmarks of the shoulder and standard portal sites. Skin knife was used to incise the skin blunt with trocar was placed in the glenohumeral joint and exchanged with the camera. Within the glenohumeral joint there was severe tearing of the biceps tendon which is incarcerated in the glenohumeral joint maneuvered anteriorly where the anterior working portal was made and a purple cannula was placed. Shaver was then placed in the joint and the biceps was debrided biceps tenolysis was performed with a sucker shaver and electrocautery. The glenoid cartilage was intact the humeral cartilage was mildly softened but intact. Attention was brought to the anterior labrum there was no full-thickness detachment of the anterior labrum but there was fraying and degenerative tearing. Debridement of the anterior labrum was performed. Undersurface of the rotator cuff was evaluated there was a small less than 10% tear the footprint of supraspinatus which was debrided with a sucker shaver. Attention was then brought in the subacromial space within the subacromial space there was severe subacromial bursitis. A lateral portal was made sucker shaver placed along with the electrocautery and subacromial bursa debridement was performed debridement was taken until I was able to see the superior surface of the rotator cuff there is no evidence of full-thickness tearing The bursitis and subacromial space was severe and extensive bursectomy was performed. Camera was then removed and the joint was drained. Skin was closed with nylon stitch sterile dressing placed sling and pillow placed patient taken to recovery in stable condition. Condition: stable Disposition: PACU Complications:: None apparent
--- NOTE | 2025-04-09 10:06 | EXP.ANES.I ---
[facility] Anesthesia Record Part I Anesthesia Record I Intake, IV Amount: 900 Hydration: Adequate Estimated blood loss (mL): 5 Urine output (mL): 0 Blood Products used (#): none Blood Pressure: 147/76 SaO2: 95 Pulse Rate: 65 Airway Patency: Patent Respiratory Rate: 16 Temperature: 98.5 F Patient is:: Drowsy and Stable Stable to PACU at:: 10:00
--- NOTE | 2025-04-09 10:54 | P.PNANES_ITS ---
[facility] Anesthesia Record Part II Anesthesia Record Part II Discharge Time: 10:30 Destination: Surgical Day Care (OP Surgery) PACU nurse assessment reviewed?: Yes Patient Condition:: Good Anesthesia Complications:: None Swallowing reflex intact?: Yes Airway Patency: Patent Cyanosis?: No Blood Pressure: 132/79 SaO2: 94 Respiratory Rate: 16 Pulse Rate: 68 Temperature: 98.5 F Mental Status: Alert & Oriented Pain level:: 0 Nausea and/or vomitting:: None Intake, IV Amount: 0 Hydration: Adequate
[2025-04-09 10:57] LABS: POC Glucose,Bedside 131 gm/dL (70-110)
== END 2025-04-09 11:14 | disposition home or self-care (01) ==
PROVIDERS: PCP Internal Medicine Adolescent Medicine; Visit Provider Orthopaedic Surgery
PROC: (CPT 29805; principal; 2025-04-09 08:00)
DX: S43.492A Other sprain of left shoulder joint, initial encounter (principal); S46.212A Strain of muscle, fascia and tendon of other parts of biceps, left arm, initial encounter; M75.52 Bursitis of left shoulder; M75.112 Incomplete rotator cuff tear or rupture of left shoulder, not specified as traumatic; X58.XXXA Exposure to other specified factors, initial encounter; E03.9 Hypothyroidism, unspecified; E78.5 Hyperlipidemia, unspecified; E11.9 Type 2 diabetes mellitus without complications; I25.119 Atherosclerotic heart disease of native coronary artery with unspecified angina pectoris; Z79.82 Long term (current) use of aspirin; Z79.899 Other long term (current) drug therapy; Z79.890 Hormone replacement therapy; Z79.84 Long term (current) use of oral hypoglycemic drugs
CPT/HCPCS: 29823; 64415; 82962; 96374; J0169; J0666; J0690; J1100; J2003; J2250; J2405; J2704; J3010; J7120

== ENCOUNTER 2025-05-30 08:19 | Outpatient (CLI) | payer MEDICARE, SELFPAY ==
--- OUTSIDE RECORDS SUMMARY | 2025-05-30 08:25 | XMS_ITS | Encounter Summary ---
Author Organization [employer] ([place], [place], [place], [place], [place]) Address [address] [place] [address] Care Team Providers Care Tipple Operator Name Role Phone Unavailable Primary Care Provider Unavailabl e Encounter Details Date Type Department Care Team (Late st Contact Info) Description 10/01/2020 Transcribed Document [facility] [place] Family Medicine Formerly [facility] [address] ProviderSharee MD [address] [place], [place] [id number] Social History Tobacco Use Types Packs/Day Years Used Date Smoking Tobacco: Never Assessed Sex and Gender Information Value Date Recorded Sex Assigned at Not on file Legal Sex Male 4:43 PM CDT Gender Identity Not on file Sexual Orientation Not on file documented as of this encounter Miscellaneous Notes * Cerner Conversion Note - Historical ProviderMD - 10/01/2020 10:18 AM PRESS BREAKER Evaluation, Physical Therapy Entered On: 10/01/2020 15:52 EST Performed On: 10/01/2020 14:18 EST by LUIZ JOHNSON PT General Information, PT Visit Type, PT : [...] Ambulatory Devices : None, Gait belt LUIZ JOHNSON, PT - 10/01/2020 15:48 EST Edu Topics [...] : Pain Rehabilitation Potential : Good LUIZ JOHNSON, PT - 10/01/2020 15:48 EST Plan of Care, PT PT Tx Plan/Goals Established w Patient : Yes PT Frequency Rehab : Five days per week PT Duration Rehab : Fourteen days PT Treatments Planned : Balance training, Bed mobility training, Gait training, Safety education, Stair training, Therapeutic exercises, Transfer training LUIZ JOHNSON, PT - 10/01/2020 15:48 EST Jail Goals Mobility/Bed Mobility LTG PT Grid Goal [...] Pain Improved by Intervention : Yes LUIZ JOHNSON, PT - 10/01/2020 15:48 EST Image 1 [...]
--- OUTSIDE RECORDS SUMMARY | 2025-05-30 08:25 | XMS_ITS | Encounter Summary ---
Author Organization [employer] ([place], [place], [place], [place], [place]) Address [address] [place] [address] Care Team Providers Care Bean Roaster Name Role Phone Unavailable Primary Care Provider Unavailabl e Encounter Details Date Type Department Care Team (Late st Contact Info) Description 10/01/2020 Transcribed Document [facility] [place] [facility] [place] [address] ProviderSharee MD [address] [place], [place] [address] Social History Tobacco Use Types Packs/Day Years Used Date Smoking Tobacco: Never Assessed Sex and Gender Information Value Date Recorded Sex Assigned at Not on file Legal Sex Male 4:43 PM CDT Gender Identity Not on file Sexual Orientation Not on file documented as of this encounter Miscellaneous Notes * Cerner Conversion Note - Historical ProviderMD - 10/01/2020 5:00 PM SOIL SAMPLER Chart Check - Review Order Profile Entered On: 10/01/2020 18:32 EST Performed On: 10/01/2020 17:00 EST by DANITZA VILLAFANA RN Chart Check Powerplans Initiated/Discontinued as Appropriate : Yes All Active Orders Reviewed : Yes DANITZA VILLAFANA RN - 10/01/2020 18:32 EST Electronically signed by Enedina [facility] Conversion Enterostomal Nurse Cerner at 11/11/2022 11:30 AM CDT documented in this encounter Plan of Treatment Not on file documented as of this encounter Visit Diagnoses Not on filedocumented in this encounter
--- OUTSIDE RECORDS SUMMARY | 2025-05-30 08:25 | XMS_ITS | Encounter Summary ---
Author Organization [employer] ([place], [place], [place], [place], [place]) Address [address] [place] [address] Care Team Providers Care Ammunition Components Inspector Name Role Phone Unavailable Primary Care Provider Unavailabl e Encounter Details Date Type Department Care Team (Late st Contact Info) Description 10/01/2020 Transcribed Document [facility] [place] Family Medicine [facility] [place] [address] ProviderSharee MD [address], [place] [id number] Social History Tobacco Use Types Packs/Day Years Used Date Smoking Tobacco: Never Assessed Sex and Gender Information Value Date Recorded Sex Assigned at Not on file Legal Sex Male 4:43 PM CDT Gender Identity Not on file Sexual Orientation Not on file documented as of this encounter Miscellaneous Notes * Cerner Conversion Note - Historical ProviderMD - 10/01/2020 7:57 AM REPLENISHMENT SPECIALIST Admission History, Adult Entered On: 10/01/2020 15:45 [...] Arrival on Unit : Ambulatory Support Person/Patient Patent Searcher : Yes Support Person/Pt Rep Name : Hortencia aBez - Support Person/Pt Rep Contact Information : [phone] Want Family/Rep/Phys Notified of Admit : No Emergency Contact #1 : `Hortencia Baez Emergency Contact #1 ` Emergency Contact #1 Relationship : spouse` Emergency Contact #2 : ` Emergency Contact #2 Phone Number : ` Emergency Contact #2 Relationship : ` Information Obtained From : Patient Primary Language : Macedonian Preferred Communication Mode : Verbal Communication Barrier : None Boiler/Chiller Technician Needed : No Objects to Sharing [...] Scale Risk Level : 25-45 Medium Risk Jefferson Fall Interventions : Adequate lighting, Assistive devices [...] Smokeless Tobacco Status : Never Implant/Device Type, Veneer Sawyer and Model : right hip replacement hardware [...] Source : Measured Height Entry Format : Sheridan Height, Feet : 0 ft(Converted to: 0 cm, 0 Inch) Height, Inches : 71 Inch(Converted to: 5 ft 11 Inch, 180.34 cm) Clinical Height : 180.34 cm Weight Source : Standing scale Weight Entry Format : Sheridan Clinical Dosing Weight : 82.27 kg Weight, Pounds : 181.0 lb Body Surface Area (BSA) : 2.02 m2 Body Mass Index : 25.3 kg/m2 (HI) [place] Body Weight : 74 kg DANITZA VILLAFANA [...] DANITZA VILLAFANA RN - 10/01/2020 15:40 EST [place] Suicide Severity Rating Scale (C-SSRS) CSSRS Past [...] - 10/01/2020 16:55 EST Electronically signed by [facility] Conversion Cord Maker Cerner at 11/11/2022 11:34 AM CDT documented in this encounter Plan of Treatment Not on file documented as of this encounter Visit Diagnoses Not on filedocumented in this encounter
--- OUTSIDE RECORDS SUMMARY | 2025-05-30 08:25 | XMS_ITS | Encounter Summary ---
Author Organization [employer] ([place], [place], [place], [place], [place]) Address [address] [place] [address] Care Team Providers Care Shear Grinder Operator Name Role Phone Unavailable Primary Care Provider Unavailabl e Encounter Details Date Type Department Care Team (Late st Contact Info) Description 10/01/2020 Transcribed Document [facility] [place] Family Medicine [facility] [place] [address] ProviderSharee MD [address], [place] [phone] Social History Tobacco Use Types Packs/Day Years Used Date Smoking Tobacco: Never Assessed Sex and Gender Information Value Date Recorded Sex Assigned at Not on file Legal Sex Male 4:43 PM CDT Gender Identity Not on file Sexual Orientation Not on file documented as of this encounter Miscellaneous Notes * Cerner Conversion Note - Historical ProviderMD - 10/01/2020 10:[address]ISSIONER Pain Assessment Entered On: 10/01/2020 11:16 EST [...]
--- OUTSIDE RECORDS SUMMARY | 2025-05-30 08:25 | XMS_ITS | Encounter Summary ---
Author Organization [employer] ([place], [place], [place], [place], [place]) Address [address] [place] [address] Care Team Providers Care Equine Science Instructor Name Role Phone Unavailable Primary Care Provider Unavailabl e Encounter Details Date Type Department Care Team (Late st Contact Info) Description 10/01/2020 Transcribed Document [facility] [place] [facility] [place] [address] ProviderSharee MD [address], [place] [phone] Social History Tobacco Use Types Packs/Day Years Used Date Smoking Tobacco: Never Assessed Sex and Gender Information Value Date Recorded Sex Assigned at Not on file Legal Sex Male 4:43 PM CDT Gender Identity Not on file Sexual Orientation Not on file documented as of this encounter Miscellaneous Notes * Cerner Conversion Note - Historical ProviderMD - 10/01/2020 8:00 AM NEWSPAPER PHOTOGRAPHER [facility] Main OR Preop Summary Primary Physician: ANDREW WATSON MD-BETSY Finalized Date/Time: 10/01/20 08:50:03 Pt. Name: WERNER BAEZ D.O.B./Sex: 1955 Male Med Rec #: [id number] Physician: ANDREW WATSON MD-SNU Financial #: [id number] Pt. Type: O Room/Bed: Admit/Disch: 10/01/20 07:57:00 - Institution: [facility] PreOp Case Times Entry 1 In Preop 10/01/20 06:02:00 Ready for Holding n/a Room Patient Ready for 10/01/20 07:52:00 Surgery Patient Out of Preop 10/01/20 08:11:00 Patient Out of n/a Holding Room Last Modified By: Jackie Vilchis RN 10/01/20 08:50:01 [facility] PreOp Case Times Audit 10/01/20 08:50:01 Power Generation Equipment Repairer: AUGUSTO Modifier: AUGUSTO <+> 1 Patient Out of Preop Finalized By: Jackie Vilchis RN Document Signatures Signed By: Jackie Vilchis RN 10/01/20 08:50 Electronically signed by Enedina [facility] Conversion Shirt Sorter Cerner at 11/11/2022 11:45 AM CDT documented in this encounter Plan of Treatment Not on file documented as of this encounter Visit Diagnoses Not on filedocumented in this encounter
--- OUTSIDE RECORDS SUMMARY | 2025-05-30 08:25 | XMS_ITS | Encounter Summary ---
Author Organization [employer] ([place], [place], [place], [place], [place]) Address [address] [place] [address] Care Team Providers Care Radiologist Diagnostic Name Role Phone Unavailable Primary Care Provider Unavailabl e Encounter Details Date Type Department Care Team (Late st Contact Info) Description 10/01/2020 Transcribed Document [facility] Neurology - [facility] [address] [phone] Junior Kirk MD [address] [facility] [address] [place] [address] Social History Tobacco Use Types Packs/Day Years [...] and C4-5 anterior cervical diskectomy and fusion. RIVETING MACHINE OPERATOR: Suhail Lynn PA-C TYPE OF ANESTHESIA: GEA. [...] disk space. Distraction was removed and a [place] plate was affixed to the anterior vertebral bodies from C3 to C6. Set screws were torqued to factory specifications. Fluoroscopy showed good placement of all instrumentation. The wound was copiously irrigated. Meticulous hemostasis was obtained and a 10-Pashto drain was left into the post-esophageal space. 2-0 Vicryl reapproximated the platysma, 3-0 Vicryl closed the skin subcuticularly. Mastisol and Steri-Strips and a Covaderm were applied. Suhail Lynn assisted throughout the surgery and helped perform the closure. SPECIMEN SENT: Old hardware. ESTIMATED BLOOD LOSS: 50 mL. DRAINS: Darin Webster. COMPLICATIONS: None. /[id number] Junior Kirk MD MPT/AQ / MPT / MODL /[id number] CC: Dr. Gabino Marin documented in this encounter Plan of Treatment Not on file documented as of this encounter Visit Diagnoses Not on filedocumented in this encounter
--- OUTSIDE RECORDS SUMMARY | 2025-05-30 08:25 | XMS_ITS | Encounter Summary ---
Author Organization [employer] ([place], [place], [place], [place], [place]) Address [address] [place] [address] Care Team Providers Care Mortgage Assistant Name Role Phone Unavailable Primary Care Provider Unavailabl e Encounter Details Date Type Department Care Team (Late st Contact Info) Description 10/01/2020 Transcribed Document [facility] [place] Family Medicine [facility] [place] [address] ProviderShaere MD [address], [place] [address] Social History Tobacco Use Types Packs/Day Years Used Date Smoking Tobacco: Never Assessed Sex and Gender Information Value Date Recorded Sex Assigned at Not on file Legal Sex Male 4:43 PM CDT Gender Identity Not on file Sexual Orientation Not on file documented as of this encounter Miscellaneous Notes * Cerner Conversion Note - Historical ProviderMD - 10/01/2020 10:47 AM BODY TEAM MEMBER Pain Assessment Entered On: 10/01/2020 18:30 EST [...]
--- OUTSIDE RECORDS SUMMARY | 2025-05-30 08:25 | XMS_ITS | Encounter Summary ---
Author Organization [employer] ([place], [place], [place], [place], [place]) Address [address] [place] [address] Care Team Providers Care Television News Video Editor Name Role Phone Unavailable Primary Care Provider Unavailabl e Encounter Details Date Type Department Care Team (Late st Contact Info) Description 10/01/2020 Transcribed Document [facility] [place] Family Medicine [facility] [place] [address] ProviderSharee MD [address], [place] [phone] Social History Tobacco Use Types Packs/Day Years Used Date Smoking Tobacco: Never Assessed Sex and Gender Information Value Date Recorded Sex Assigned at Not on file Legal Sex Male 4:43 PM CDT Gender Identity Not on file Sexual Orientation Not on file documented as of this encounter Miscellaneous Notes * Cerner Conversion Note - Historical ProviderMD - 10/01/2020 8:50 AM GASOLINE ENGINE INSPECTOR [facility] Main OR PACU Summary Primary Physician: ANDREW WATSON MD-SNU Finalized Date/Time: 10/01/20 14:29:00 Pt. Name: WERNER BAEZ/Sex: 1955 Male Med Rec #: [id number] Physician: ANDREW WATSON MD-SNU Financial #: [id number] Pt. Type: O Room/Bed: [facility]/1 Admit/Disch: 10/01/20 07:57:00 - Institution: [facility] Main OR PACU I Case Times Entry 1 In PACU I 10/01/20 10:27:00 Ready for PACU 10/01/20 11:38:00 Discharge Discharge from PACU 10/01/20 11:38:00 I Last Modified By: MICHAEL WITT, ELISABETH 10/01/20 14:28:52 Finalized By: MICHAEL WITT, RN Document Signatures Signed By: MICHAEL WITT RN 10/01/20 14:28 Electronically signed by Nacho Mcconnell Conversion Blow Machine Tender Starch Spraying Cerner at 11/11/2022 11:30 AM CDT documented in this encounter Plan of Treatment Not on file documented as of this encounter Visit Diagnoses Not on filedocumented in this encounter
--- OUTSIDE RECORDS SUMMARY | 2025-05-30 08:25 | XMS_ITS | Encounter Summary ---
Author Organization [employer] ([place], [place], [place], [place], [place]) Address [address] [place] [address] Care Team Providers Care Counter Checker Name Role Phone Unavailable Primary Care Provider Unavailabl e Encounter Details Date Type Department Care Team (Late st Contact Info) Description 10/01/2020 Transcribed Document [facility] [place] Family Medicine [facility] [place] [address] ProviderSharee MD [address], [place] [phone] Social History Tobacco Use Types Packs/Day Years Used Date Smoking Tobacco: Never Assessed Sex and Gender Information Value Date Recorded Sex Assigned at Not on file Legal Sex Male 4:43 PM CDT Gender Identity Not on file Sexual Orientation Not on file documented as of this encounter Miscellaneous Notes * Cerner Conversion Note - Historical ProviderMD - 10/01/2020 10:18 AM PROJECT MANAGER ENTERTAINMENT AND MEDIA Evaluation, Occupational Therapy Entered On: 10/01/2020 14:54 [...] C6-7, C3-4 and C4-5 anterior cervical diskectomy Tonia Brady STUDENT-OCCUPATIONAL THERAPIST - 10/01/2020 14:48 EST General [...] Brady STUDENT-OCCUPATIONAL THERAPIST - 10/01/2020 14:48 EST Spectacle Truer Goals, OT Grooming LTG Grid Goal #1 [...] 10/01/2020 14:48 EST Electronically signed by Enedina [facility] Conversion Documentation Improvement Specialist Cerner at 11/11/2022 11:33 AM CDT documented in this encounter Plan of Treatment Not on file documented as of this encounter Visit Diagnoses Not on filedocumented in this encounter
--- OUTSIDE RECORDS SUMMARY | 2025-05-30 08:26 | XMS_ITS | Encounter Summary ---
Author Organization [employer] ([place], [place], [place], [place], [place]) Address [address] [place] [address] Care Team Providers Care Corsetier Name Role Phone Unavailable Primary Care Provider Unavailabl e Encounter Details Date Type Department Care Team (Late st Contact Info) Description 09/30/2020 Transcribed Document [facility] [place] Family Medicine [facility] [place] [address] ProviderSharee MD [address], [place] [phone] Social History Tobacco Use Types Packs/Day Years Used Date Smoking Tobacco: Never Assessed Sex and Gender Information Value Date Recorded Sex Assigned at Not on file Legal Sex Male 4:43 PM CDT Gender Identity Not on file Sexual Orientation Not on file documented as of this encounter Miscellaneous Notes * Cerner Conversion Note - Historical ProviderMD - 09/30/2020 1:14 PM CLINICAL FELLOW UM Authorization Entered On: 09/30/2020 13:15 EST Performed On: 09/30/2020 13:14 EST by LUCY ALEMAN Fiber Optics Technician Primary Insurance Authorization Authorization and Policy Numbers : Insurance 1 Health Plan: [facility] Policy Number: [id number] Authorization Number: Insurance Primary Name : Cash [id number] Authorization Number-Primary : OUT PT Auth# [id number] Authorized Service Begin Date-Primary : 10/01/2020 EST Authorization Comments-Primary : pt is blair for OUT PT Cervical discectomy Fusion Anterior Hardware Removal Spone on 10-01-20 [place] [facility] Auth# [id number] Historical Authorization Comments-Primary : No Authorization Comments Found LUCY ALEMAN, Fiber Optics Technician - 09/30/2020 13:14 EST documented in this encounter Plan of Treatment Not on file documented as of this encounter Visit Diagnoses Not on filedocumented in this encounter
--- OUTSIDE RECORDS SUMMARY | 2025-05-30 08:26 | XMS_ITS | Clinical Summary ---
Author Organization Healthcare Address [address] [place] [address] Care Team Providers Care City Recorder Name Role Phone Gabino Marin MD Primary Care Provider + [phone] Family History Medical History Relation Name Comments [...] of Treatment Not on file Care Teams City Recorder Relationship Specialty Start Date End Date Gabino Marin MD [address] [place] [address] PCP - General 12/05/20
--- OUTSIDE RECORDS SUMMARY | 2025-05-30 08:26 | XMS_ITS | Encounter Summary ---
Author Organization [employer] ([place], [place], [place], [place], [place]) Address [address] [place] [address] Care Team Providers Care Real Estate Utilization Officer Name Role Phone Unavailable Primary Care Provider Unavailabl e Encounter Details Date Type Department Care Team (Late st Contact Info) Description 10/01/2020 Transcribed Document [facility] [place] [facility] [place] [address] ProviderSharee MD [address], [place] [id number] Social History Tobacco Use Types Packs/Day Years Used Date Smoking Tobacco: Never Assessed Sex and Gender Information Value Date Recorded Sex Assigned at Not on file Legal Sex Male 4:43 PM CDT Gender Identity Not on file Sexual Orientation Not on file documented as of this encounter Miscellaneous Notes * [employer] Conversion Note - Historical ProviderMD - 10/01/2020 8:50 AM SOLUTION ARCHITECT [facility] Main OR IntraOp Summary Primary Physician: ANDREW WATSON MD-SNU Finalized Date/Time: 10/02/20 13:03:11 Pt. Name: ALESHA BAEZO.B./Sex: 1955 Male Med Rec #: [id number] Physician: ANDREW WATSON MD-SNU Financial #: [id number] Pt. Type: O Room/Bed: [facility]/ Admit/Disch: 10/01/20 07:57:00 - Institution: [facility] IntraOp Case Attendance Entry 1 Entry 2 Entry 3 Case Attendee ANDREW WATSON Byrd, Charlie D, RN LONG, PAULA R., ST MD-SNU Role Performed Surgeon/Proceduralist, Commercial Crabber, First Scrub, First First Time In 10/01/20 [...] 6 Case Attendee ROSALINDA WAITE SANDRA D, RN Lucia Wren CRNA Role Performed Physician environmental emergencies assistant Commercial Crabber, First TELEPHONE SOLICITOR/Nurse Geothermal Powerplant Mechanic Time In 10/01/20 08:14:00 10/01/20 08:35:00 10/01/20 08:14:00 Time Out 10/01/20 10:25:00 10/01/20 08:45:00 10/01/20 10:25:00 Procedure Cervical Discectomy Cervical Discectomy Cervical Discectomy Fusion Anterior, Fusion Anterior, Fusion Anterior, Hardware Removal Spine Hardware Removal Spine Hardware Removal Spine Other Attendee RN BREAK RELIEF Superficial Wound Closed By: Last Modified By: Az Stack, Az Grace, RN Az Stack, RN 10/01/20 10:25:15 10/01/20 08:41:41 10/01/20 10:25:15 Entry 7 Entry 8 Entry 9 Case Attendee Cely Barone, OTHER, ATTENDEE #1 SUKHDEV JETT MD-BHAVANA Diagnostic Supervisor Corduroy Cutting Role Performed Cast Iron Drain Pipe Layer Vendor Anesthesiologist of Record Time In 10/01/20 [...] RN 10/01/20 10:25:15 10/01/20 08:53:48 10/01/20 10:25:15 [facility] IntraOp Case Attendance Audit 10/01/20 10:25:15 Drupal Php Developer: PHONG Modifier: [email or web address] 1 <+> Time Out [...] Fusion Anterior, Hardware Removal Spine 10/01/20 08:57:50 Drupal Php Developer: [email or web address] Modifier: [email or web address] 1 <*> Procedure Cervical [...] Fusion Anterior, Hardware Removal Spine 10/01/20 08:56:46 Drupal Php Developer: [email or web address] Modifier: [email or web address] 1 <*> Procedure Cervical [...] Role Performed <+> 9 Procedure 10/01/20 08:53:48 Drupal Php Developer: [email or web address] Modifier: [email or web address] 1 <*> Procedure Cervical [...] Procedure <+> 8 Other Attendee 10/01/20 08:43:27 Drupal Php Developer: [email or web address] Modifier: [email or web address] <+> 6 Case Attendee <+> 6 Role Performed <+> 6 Procedure <+> 7 Case Attendee <+> 7 Role Performed <+> 7 Procedure 10/01/20 08:41:41 Drupal Php Developer: [email or web address] Modifier: [email or web address] <+> 5 Case Attendee <+> 5 Role Performed <+> 5 Time In <+> 5 Time Out <+> 5 Procedure <+> 5 Other Attendee 10/01/20 08:34:50 Drupal Php Developer: [email or web address] Modifier: [email or web address] 1 <+> Time In 1 <*> Procedure Cervical Discectomy Fusion Anterior, Hardware Removal Spine 2 <+> Time In 2 <*> Procedure Cervical Discectomy Fusion Anterior, Hardware Removal Spine 3 <+> Time In 3 <*> Procedure Cervical Discectomy Fusion Anterior, Hardware Removal Spine 4 <+> Time In 4 <*> Procedure Cervical Discectomy Fusion Anterior, Hardware Removal Spine [facility] IntraOp Case Times Entry 1 Patient In Room Time 10/01/20 08:14:00 Out Room Time 10/01/20 10:25:00 Anesthesia Start Time 10/01/20 08:14:00 Stop Time 10/01/20 10:25:00 Surgery / Procedure Times Start Time 10/01/20 08:50:00 Stop Time 10/01/20 10:16:00 Last Modified By: Az Stack RN 10/01/20 10:17:01 [facility] IntraOp Case Times Audit 10/01/20 10:25:15 Drupal Php Developer: [email or web address] Modifier: [email or web address] <+> 1 Out Room Time <+> 1 Stop Time 10/01/20 10:17:01 Drupal Php Developer: [email or web address] Modifier: [email or web address] <+> 1 Stop Time 10/01/20 08:50:48 Drupal Php Developer: [email or web address] Modifier: [email or web address] <+> 1 Start Time [facility] IntraOp Cautery Entry 1 Entry 2 ESU Identification Cautery Type Monopolar ESU BiPolar ESU Cautery Type Comments ID Number [id number] ID Type Hospital Number Hospital Number Cautery [...] Charlie D, RN 10/01/20 08:47:48 10/01/20 08:47:48 [facility] IntraOp Communication Entry 1 Communication To Family/Significant other Comment START Communication By CHARLIE RAMIREZ RN Date and Time 10/01/20 08:51:00 Last Modified By: Az Stack RN 10/01/20 08:51:57 [facility] IntraOp Counts Verification Entry 1 Procedure Cervical Discectomy Fusion Anterior, Hardware Removal Spine Count Info Count Type Sponge, Sharps, Miscellaneous Counts Verification Baseline/pre-procedure Sequence Count Results Not Applicable Counts Performed By Count Performed By JAZZMINE MIRANDA ST (Scrub) Count Performed By Az Stack RN (RN) Last Modified By: Az Stack RN 10/01/20 08:43:02 [facility] IntraOp Counts Final Entry 1 Procedure Cervical Discectomy Fusion Anterior, Hardware Removal Spine Final Count Info Count Type Sponge, Sharps, Miscellaneous Counts Verification Skin Closure/end of Sequence procedure Count Results Correct, surgeon notified Counts Performed By Count Performed By JAZZMINE MIRANDA ST (Scrub) Count Performed By Az Stack RN (RN) Last Modified By: Az Stack RN 10/01/20 10:11:07 [facility] IntraOp Cultures and Spec Summary Entry 1 Cultrures and Specimens Specimen Ordered: Yes Test(s) Routine/Path-Lab Requested/Final Disposition Last Modified By: Az Stack RN 10/01/20 09:03:08 General Comments: A. EXPLANTED HARDWARE [facility] IntraOp Delays Entry 1 Delay Reason Surgeon late - did not call Duration 14 Minute(s) Last Modified By: Az Stack RN 10/01/20 08:48:03 [facility] IntraOp Departure from OR Entry 1 Integumentary Assessment Integumentary WDL Assessment WDL Transfer/Handoff Transfer to PACU Phase I Handoff Method Bedside/Face to face, Phone call Post-op Transport Stretcher/Mattyney Via Patient Transport ROSALINDA WAITE, Accompanied by Lucia Wren CRNA Last Modified By: Az Stack RN 10/01/20 09:00:29 [facility] IntraOp Drains and Tubes Entry 1 Device Type Tre Drain Size 10 FR Drain/Tube Activity Inserted Drain/Tube Suction Bulb Drain/Tube Drainage Serosanguineous Device Location OP SITE Method of Drainage Compression Last Modified By: Az Stack RN 10/01/20 10:11:44 [facility] IntraOp Dressing and Packing Entry 1 Type Dressing Location OP SITE Wound Dressing Item Occlusive dressing, Skin adhesive, Steristrip Applied By ROSALINDA WAITE Last Modified By: Az Stack RN 10/01/20 09:01:05 [facility] IntraOp Fire Risk Assessment Entry 1 [...] Modified By: Az Stack RN 10/01/20 08:52:06 [facility] IntraOp General Case Ship Washer 1 Case Information OR OR 11 [facility] Case Level 1 Room Verified Yes Wound Class II - Clean-Contaminated Specialty SN Neurosurgery Anesthesia Type General ASA Class 3 Diagnosis Preop Diagnosis CERVICAL STENOSIS Postop Same As Preop No Postop Diagnosis SEE MD POST OP N0TE Last Modified By: Az Stack RN 10/01/20 08:53:00 [facility] IntraOp Implant Log Entry 1 Entry 2 Entry 3 Type Tissue Implant Implant (Synthetic) Implant (Synthetic) (Biologic) Implant Log Implant Type Hardware Hardware Tissue Implant Type Bone Implant BONE VIVIGEN FORMABLE [id number] EIT CIF H 6MM [id number] EIT CIF H 5MM Identification -[id number] CAGE L CAGE Description Implant Quantity 1 1 1 Implant Site OP SITE OP SITE OP SITE Implant [id number] Identification Model Number Implant Identification Serial Number Implant [id number] Identification Lot Number Implant Lifenet:Lifenet Identification Transplant [facility] Hospital Orderly Name: Implant [id number] Identification Catalog Number Implant Size Implant Has an Yes Yes Yes Expiration Date Implant Expiration 09/18/21 12/22/24 04/23/24 Date Wasted Radioactive Material Time Implanted Tissue Implant Continue for Tissue Implant Documentation Tissue Identification Number Graft Prep Per Hospital Orderly Instructions: Tissue Preparation Method: Reconstitution Solution: Reconstitution Solution Lot Number Reconstitution Solution Expiration Date: Thawing Solution Thawing Solution Lot Number Thawing Solution Expiration Date Preparation Materials, Other Preparation Materials, Other Lot Number Preparation Materials, Other Expiration Date Tissue Prepared/Processed By Hospital Orderly Paperwork Completed Implant Type Comment Last Modified By: Az Stack RN Byrd, Charlie D, RN Byrd, Charlie D, RN 10/01/20 09:27:04 10/01/20 09:38:34 10/01/20 09:52:01 Entry 4 Entry 5 Entry 6 Type Implant (Synthetic) Implant (Synthetic) Implant (Synthetic) Implant Log Implant Type Hardware Hardware Hardware Tissue Implant Type Implant PLT ANT SKYLN HYBRD SCR SKYLN VARI SD SCR SKYLN VARI SD Identification [id number] Description Implant Quantity 1 2 4 Implant Site OP SITE OP SITE OP SITE Implant Identification Model Number Implant Identification Serial Number Implant Identification Lot Number Implant J&J:Depuy:Depuy Spine J&J:Depuy:Depuy Spine J&J:Depuy:Depuy Spine Identification Hospital Orderly Name: Implant [id number] [id number] [id number] Identification Catalog Number Implant Size Implant Has an Expiration Date Implant Expiration Date Wasted Radioactive Material Time Implanted Tissue Implant Continue for Tissue Implant Documentation Tissue Identification Number Graft Prep Per Hospital Orderly Instructions: Tissue Preparation Method: Reconstitution Solution: Reconstitution Solution Lot Number Reconstitution Solution Expiration Date: Thawing Solution Thawing Solution Lot Number Thawing Solution Expiration Date Preparation Materials, Other Preparation Materials, Other Lot Number Preparation Materials, Other Expiration Date Tissue Prepared/Processed By Hospital Orderly Paperwork Completed Implant Type Comment Last Modified By: Az Stack RN Byrd, Charlie D, RN Byrd, Charlie D, RN 10/01/20 10:10:45 10/01/20 10:10:45 10/01/20 10:10:45 [facility] IntraOp Implant Log Audit 10/01/20 10:10:45 Drupal Php Developer: PHONG Modifier: PHONG <+> 4 Implant Identification Description <+> 4 Implant Identification Hospital Orderly Name: <+> 4 Implant Site <+> 4 Implant Quantity <+> 4 Implant Identification Catalog Number <+> 4 Implant Type <+> 4 Type <+> 5 Implant Identification Description <+> 5 Implant Identification Hospital Orderly Name: <+> 5 Implant Site <+> 5 Implant Quantity <+> 5 Implant Identification Catalog Number <+> 5 Implant Type <+> 5 Type <+> 6 Implant Identification Description <+> 6 Implant Identification Hospital Orderly Name: <+> 6 Implant Site <+> 6 Implant Quantity <+> 6 Implant Identification Catalog Number <+> 6 Implant Type <+> 6 Type 10/01/20 09:52:01 Drupal Php Developer: PHONG Modifier: PHONG <+> 3 Implant Identification Description <+> 3 Implant Identification Lot Number <+> 3 Implant Expiration Date <+> 3 Implant Site <+> 3 Implant Quantity <+> 3 Implant Type <+> 3 Implant Has an Expiration Date <+> 3 Type 10/01/20 09:38:34 Drupal Php Developer: PHONG Modifier: PHONG <+> 2 Implant Identification Description <+> 2 Implant Identification Lot Number <+> 2 Implant Expiration Date <+> 2 Implant Site <+> 2 Implant Quantity <+> 2 Implant Type <+> 2 Implant Has an Expiration Date <+> 2 Type [facility] IntraOp Intraoperative Assessment Entry 1 Handoff [...] Modified By: Az Stack RN 10/01/20 08:54:04 [facility] IntraOp Intraoperative Equipment Entry 1 Type Equipment Equipment Equipment Ami Suction System ID Number [id number] Setting 160 MM HG Intraop Monitoring Electrocardiogram Five lead placement (ECG) Electrode Placement Blood Pressure Non-Invasive BP Device Source Blood Pressure Arm, right upper Location Pulse Oximeter Hand, left Probe Site Antiembolic Devices Antiembolic Devices Sequential compression device, knee high Antiembolic Device Bilateral Location Antiembolic Device [id number] ID Number Scopes Photo/Video Documentation Last Modified By: Az Stack RN 10/01/20 08:54:45 [facility] IntraOp Medication Admin Entry 1 Entry 2 Entry 3 Medication/Irrigant Bacitracin 50,00units lidocaine 1% w/ Neosporin 15Gm ointment powder vial epinephrine 1:100,000 - [id number] 30ml vial - [id number] Combo Med List Time Administered Route of ADDED TO NS IRRIGATION LOCAL TOPICAL Administration Dose Dose 56791 4 1 Unit of Measure units ml [...] SPNG SURGFOAM thrombin 5000units MATRIX FLOSEAL HEMO [id number] topical powder - 10ML [id number] Combo Med List Time Administered Route of [...] RN 10/01/20 08:56:29 10/01/20 08:56:29 10/01/20 09:18:38 [facility] IntraOp Medication Admin Audit 10/01/20 09:18:38 Drupal Php Developer: PHONG Modifier: [email or web address] <+> 6 Medication/Irrigant <+> 6 Route of Administration <+> 6 Administered By <+> 6 Dose <+> 6 Unit of Measure [facility] IntraOp Patient Positioning Entry 1 Procedure [...] Devices Positioned By ANDREW WATSON MD-SNU, Az Stack RN, CHARLIE RAMIREZ RN, Lucia Wren CRNA Position Verified Positioning Yes Verified by Anesthesia Positioning Yes Verified by Surgeon Last Modified By: Az Stack RN 10/01/20 08:57:41 [facility] IntraOp Sign In Entry 1 Patient, [...] Modified By: Az Stack RN 10/01/20 09:00:12 [facility] IntraOp Sign In Audit 10/01/20 09:00:12 Drupal Php Developer: [email or web address] Modifier: [email or web address] <+> 1 Difficult Airway/Aspiration Risk <+> 1 Difficult Airway/Aspiration Intervention Equipment Available <+> 1 Blood Identifiers Verified Per Policy [facility] IntraOp Sign Out Entry 1 RN [...] Yes Elements Complete? RN Sign Out Az Stack RN Signature RN Sign Out 10/01/20 10:25:00 [...] Modified By: Az Stack RN 10/01/20 10:22:40 [facility] IntraOp Sign Out Audit 10/01/20 10:25:28 Drupal Php Developer: PHONG Modifier: [email or web address] <+> 1 RN Sign Out Signature Date/Time 10/01/20 10:22:40 Drupal Php Developer: PHONG Modifier: [email or web address] <+> 1 RN Sign Out Signature <+> 1 Urinary Catheter Documented in IView [facility] IntraOp Skin Prep Entry 1 Procedure Cervical Discectomy Fusion Anterior, Hardware Removal Spine Prescribed Yes Pre-Surgical Prep Completed Prep Area OP SITE AFTER ALCOHOL AND HIBICLENS PREP PER DR WATSON Intraop Prep Integumentary WDL Assessment WDL Prep Agents Alcohol, Chlorhexadine gluconate, DuraPrep Prep by CHARLIE RAMIREZ RN Hair Removal Methods No hair removal performed Last Modified By: Az Stack RN 10/01/20 08:42:11 [facility] IntraOp Surgical Procedures Entry 1 Entry 2 Procedure Cervical Discectomy Hardware Removal Spine Fusion Anterior Modifiers Additional (C3-4 ,4-5 ACDF AND Procedure HARWARE REMOVAL WITH Description CHIN STRAP TRACTION) Primary Procedure Yes No Primary Surgeon ANDREW WATSON TUTT, MATTHEW PAIGE, MD-SNU -SNU Start 10/01/20 08:50:00 10/01/20 08:50:00 Stop 10/01/20 10:16:00 10/01/20 10:16:00 Physician States Cecum Reached Anesthesia Type General General Specialty SN Neurosurgery SN Neurosurgery Wound Class I - Clean II - Clean-Contaminated Last Modified By: Az Stack RN Byrd, Charlie D, RN 10/01/20 08:55:17 10/01/20 08:55:17 [facility] IntraOp Surgical Procedures Audit 10/01/20 10:17:02 Drupal Php Developer: [email or web address] Modifier: [email or web address] <+> 1 Stop <+> 2 Stop [facility] IntraOp Temp Regulation Devices Entry 1 Temp Regulation Temperature Forced Air Warming Regulation Device device, Warm blankets Temperature 28762 Regulation Device Serial/Unit Number Temperature Lower body Regulation Site Temperature Device 43 C Setting Temperature Az Stack RN Regulation Device Applied by [facility] Modified By: Az Stack RN 10/01/20 08:55:13 [facility] IntraOP Time Out Entry 1 Procedure [...] Modified By: Az Stack RN 10/01/20 08:50:46 [facility] IntraOP Time Out Audit 10/01/20 08:50:46 Drupal Php Developer: PHONG Modifier: PHONG 1 <+> Time Out Pause Time 1 <*> Procedure to be Performed Cervical Discectomy Fusion Anterior, Hardware Removal Spine [facility] IntraOp X-Ray and Images Entry 1 X-Ray/Imaging Type Fluoroscopy Fluoroscopy Type C-Arm Site OP SITE Automotive Parts Coordinator Name Lizabeth Cely, Diagnostic Supervisor Corduroy Cutting Last Modified By: Az Stack RN 10/01/20 08:54:56 Case Comments <None> Finalized By: KATELIN CHEN Document Signatures Signed By: Az Stack RN 10/01/20 10:25 KATELIN CHEN 10/02/20 13:03 Unfinalized History Date/Time Username Reason for Unfinalizing Freetext Reason for Unfinalizing 10/02/20 13:00 [email or web address] Correct Billing Electronically signed by Enedina [facility] Conversion Research Statistician Cerner at 11/11/2022 11:22 AM CDT documented in this encounter Plan of Treatment Not on file documented as of this encounter Visit Diagnoses Not on filedocumented in this encounter
--- OUTSIDE RECORDS SUMMARY | 2025-05-30 08:26 | XMS_ITS | Encounter Summary ---
Author Organization [employer] ([place], [place], [place], [place], [place]) Address [address] [place] [address] Care Team Providers Care Plant Protection Guard Name Role Phone Unavailable Primary Care Provider Unavailabl e Encounter Details Date Type Department Care Team (Late st Contact Info) Description 10/01/2020 Transcribed Document [facility] [place] Family Medicine [facility] [place] [address] ProviderSharee MD [address], [place] [id number] Social History Tobacco Use Types Packs/Day Years Used Date Smoking Tobacco: Never Assessed Sex and Gender Information Value Date Recorded Sex Assigned at Not on file Legal Sex Male 4:43 PM CDT Gender Identity Not on file Sexual Orientation Not on file documented as of this encounter Miscellaneous Notes * [employer] Conversion Note - Historical ProviderMD - 10/01/2020 10:18 AM ROOM SERVICE FOOD SERVICE ATTENDANT Pain Assessment Entered On: 10/01/2020 18:32 EST [...] of the form. Electronically signed by Enedina, [facility] Conversion Record Press Supervisor [employer] at 11/14/2022 4:34 PM CDT documented in this encounter Plan of Treatment Not on file documented as of this encounter Visit Diagnoses Not on filedocumented in this encounter
--- OUTSIDE RECORDS SUMMARY | 2025-05-30 08:26 | XMS_ITS | Clinical Summary ---
Author Organization [employer] ([place], [place], [place], [place], [place]) Address [address] [place] [address] Care Team Providers Care Assistant Boys Track Coach Name Role Phone Unavailable Primary Care Provider [...]
--- OUTSIDE RECORDS SUMMARY | 2025-05-30 08:26 | XMS_ITS | Clinical Summary ---
[facility] Organization [facility] Address [address] [place] [address] Care Team Providers Care Bellman Name Role Phone Provider, No Known Primary Care Provider [phone] Social History Tobacco Use Types Packs/Day Years [...] of 2) 2007 AAA SCREEN ONCE 2022 INFLUENZA VACCINE 02/22/2025 COVID-19 Vaccine ( season) 2025 Insurance [facility] PPO Care Teams Bellman Relationship Specialty Start Date End Date Provider, No Known [facility] [place] [address] PCP - General 05/13/16
--- OUTSIDE RECORDS SUMMARY | 2025-05-30 08:26 | XMS_ITS | Encounter Summary ---
Author Organization [employer] ([place], [place], [place], [place], [place]) Address [address] [place] [address] Care Team Providers Care Extension Service Specialist In Charge Name Role Phone Unavailable Primary Care Provider Unavailabl e Encounter Details Date Type Department Care Team (Late st Contact Info) Description 10/01/2020 Transcribed Document [facility] [place] [facility] [place] [address] ProviderSharee MD [address], [place] [phone] Social History Tobacco Use Types Packs/Day Years Used Date Smoking Tobacco: Never Assessed Sex and Gender Information Value Date Recorded Sex Assigned at Not on file Legal Sex Male 4:43 PM CDT Gender Identity Not on file Sexual Orientation Not on file documented as of this encounter Miscellaneous Notes * [employer]ner Conversion Note - Historical ProviderMD - 10/01/2020 10:47 AM LABOR OPERATOR Pain Assessment Entered On: 10/01/2020 11:15 EST [...] form. Electronically signed by Nacho Mcconnell Conversion Financial Services Technician Cerner at 11/11/2022 11:21 AM CDT documented in this encounter Plan of Treatment Not on file documented as of this encounter Visit Diagnoses Not on filedocumented in this encounter
--- OUTSIDE RECORDS SUMMARY | 2025-05-30 08:26 | XMS_ITS | Encounter Summary ---
Author Organization [employer] ([place], [place], [place], [place], [place]) Address [address] [place] [address] Care Team Providers Care Rn Case Manager Name Role Phone Unavailable Primary Care Provider Unavailabl e Encounter Details Date Type Department Care Team (Late st Contact Info) Description 10/01/2020 Transcribed Document [facility] [place] [facility] [place] [address] ProviderSharee MD [address], [place] [id number] Social History Tobacco Use Types Packs/Day Years Used Date Smoking Tobacco: Never Assessed Sex and Gender Information Value Date Recorded Sex Assigned at Not on file Legal Sex Male 4:43 PM CDT Gender Identity Not on file Sexual Orientation Not on file documented as of this encounter Miscellaneous Notes * [employer] Conversion Note - Historical ProviderMD - 10/01/2020 11:34 AM WELLNESS PROGRAM MANAGER Meds to Bed Enrollment Entered On: 10/01/2020 [...]
--- OUTSIDE RECORDS SUMMARY | 2025-05-30 08:26 | XMS_ITS | Encounter Summary ---
Author Organization [employer] ([place], [place], [place], [place], [place]) Address [address] [place] [address] Care Team Providers Care Slasher Operator Name Role Phone Unavailable Primary Care Provider Unavailabl e Encounter Details Date Type Department Care Team (Late st Contact Info) Description 10/02/2020 Transcribed Document [facility] [place] Family [facility] [place] [address] ProviderSharee MD [address] [place] [address] Social History Tobacco Use Types Packs/Day Years Used Date Smoking Tobacco: Never Assessed Sex and Gender Information Value Date Recorded Sex Assigned at Not on file Legal Sex Male 4:43 PM CDT Gender Identity Not on file Sexual Orientation Not on file documented as of this encounter Miscellaneous Notes * Cerner Conversion Note - Sharee ProviderMD - 10/02/2020 12:08 PM BIG DATA ADMIN [facility] [place], [place] [id number] WERNER BAEZ :1955 Visit Time:10/01/2020 Your Visit Summary Your Care Team Admitting Physician - ANDREW WATSON MD-SNU Attending Physician - ANDREW WATSON MD-BETSY Primary Care Physician - [facility] Referring Physician - ANDREW WATSON MD-SNU Your Diagnosis Spinal stenosis in cervical region, [...] on 10/06 2. Diclofenac 3. Avoid all Jyir-Phf-Qgovros NSAIDs (Non-Steroidal Anti-Inflammatories) such as Motrin (ibuprofen) and Aleve (naproxen) for 2 months Discharge Activity: don collar when up and about, Discharge Activity: No heavy lifting over 10 lbs Diet: Discharge Diet: Resume usual diet as tolerated Follow-Up Appointments Follow Up with ANDREW WATSON When 11/06/2020 01:00 PM EDT Comments Please go to the [facility] on [facility] at 12:15 for x-rays before going to your appointment at 1:00. Where: [address] [place] [address] [employer] (1) Medications What How Much When Instructions Next Dose acetaminophen-hydrocodone (Bellevue 7.5 mg-325 mg oral tablet) 1 Tablet(s) [...] and water are not available, use hand nurse first assist. ? Change your dressing as told by [...] Managing pain, stiffness, and swelling ??? Take ddaa-bxa-xnddaod and prescription medicines only as told by [...] keep your urine pale yellow. ? Take zxny-grq-kwfhapd or prescription medicines. ? Eat foods that [...] 08/06/2016 Document Revised: 04/05/2019 Document Reviewed: 04/05/2019 [employer] Patient Education ?? 2020 Cordium. acetaminophen and hydrocodone (a SEET a MIN oh fen and yuri FIGUEROA done) Hycet, Lorcet, Bellevue, Verdrocet, Vicodin, Xodol, Zamicet What is the [...] may report side effects to FDA at 1-776-IHC-2377. What other drugs will affect acetaminophen and [...] affect acetaminophen and hydrocodone, including prescription and rsvk-qmk-amxtezm medicines, vitamins, and herbal products. Not all [...] to ensure that the information provided by [employer]') is accurate, up-to-date, and complete, but no guarantee is made to that effect. Drug information contained herein may be time sensitive. [employer] information has been compiled for use by healthcare practitioners and consumers in the [place] and therefore [employer] does not warrant that uses outside of the [place] are appropriate, unless specifically indicated otherwise. [employer] drug information does not endorse drugs, diagnose patients or recommend therapy. [employer] drug information is an informational resource designed [...] effective or appropriate for any given patient. [employer] does not assume any responsibility for any aspect of healthcare administered with the aid of information [employer] provides. The information contained herein is not intended to cover all possible uses, directions, precautions, warnings, drug interactions, allergic reactions, or adverse effects. If you have questions about the drugs you are taking, check with your doctor, nurse or pharmacist. Copyright 6188-2615 The [employer]. Version: 16.03. Revision Date: 08/26/2020. Emergency Awareness [...] Assistance with quitting is available by contacting 1-097-MZVS-NOW. This is a free resource providing counseling, support, and referral. Or you may contact your personal physician. National Suicide Prevention Lifeline: The National Suicide Prevention Lifesymmes hospital is a national network of local crisis [...] ) Urine Bilirubin Dipstick: Negative Urine Specific Prosperity: 1.007 -- Normal range between ( 1.005 [...] was given the opportunity to ask questions. Patient/Digital Production Operator Name: Patient/Digital Production Operator Signature: Relationship to Patient: Clinician/Hospital Digital Production Operator Signature: Date: documented in this encounter Plan of Treatment Not on file documented as of this encounter Visit Diagnoses Not on filedocumented in this encounter
--- OUTSIDE RECORDS SUMMARY | 2025-05-30 08:26 | XMS_ITS | Referral Summary ---
Author Organization [employer] ([place], [place], [place], [place], [place]) Address [address] [place] [address] Care Team Providers Care Photographer News Name Role Phone Unavailable Primary Care Provider [...]
--- OUTSIDE RECORDS SUMMARY | 2025-05-30 08:26 | XMS_ITS | Encounter Summary ---
Author Organization [employer] ([place], [place], [place], [place], [place]) Address [address] [place] [address] Care Team Providers Care Receiving Tank Operator Name Role Phone Unavailable Primary Care Provider Unavailabl e Encounter Details Date Type Department Care Team (Late st Contact Info) Description 10/02/2020 Transcribed Document [facility] Family Medicine [facility] [place] [address] ProviderSharee MD [address] [place], [place] [id number] Social History Tobacco Use Types Packs/Day Years Used Date Smoking Tobacco: Never Assessed Sex and Gender Information Value Date Recorded Sex Assigned at Not on file Legal Sex Male 4:43 PM CDT Gender Identity Not on file Sexual Orientation Not on file documented as of this encounter Miscellaneous Notes * Cerner Conversion Note - Historical ProviderMD - 10/02/2020 1:15 PM HEAD TURBINE OPERATOR Attempt to Treat, PT Entered On: 10/02/2020 [...]
--- OUTSIDE RECORDS SUMMARY | 2025-05-30 08:26 | XMS_ITS | Encounter Summary ---
Author Organization [employer] ([place], [place], [place], [place], [place]) Address [address] [place] [address] Care Team Providers Care Command And Control Specialist Name Role Phone Unavailable Primary Care Provider Unavailabl e Encounter Details Date Type Department Care Team (Late st Contact Info) Description 09/26/2020 Transcribed Document [facility] Family Medicine [facility] [place] [address] ProviderSharee MD [address] [place] [id number] Social History Tobacco Use Types Packs/Day Years Used Date Smoking Tobacco: Never Assessed Sex and Gender Information Value Date Recorded Sex Assigned at Not on file Legal Sex Male 4:43 PM CDT Gender Identity Not on file Sexual Orientation Not on file documented as of this encounter Miscellaneous Notes * Cerner Conversion Note - Historical ProviderMD - 09/26/2020 9:25 AM MACHINE FEEDER PAT Adult Entered On: 09/26/2020 9:26 EST [...] Source : Measured Height Entry Format : [place] Height, Feet : 0 ft(Converted to: 0 cm, 0 Inch) Height, Inches : 71 Inch(Converted to: 5 ft 11 Inch, 180.34 cm) Clinical Height : 180.34 cm Weight Source : Standing scale Weight Entry Format : [place] Clinical Dosing Weight : 82.27 kg Weight, Pounds : 181.0 lb Body Surface Area (BSA) : 2.02 m2 Body Mass Index : 25.3 kg/m2 (HI) [place] Body Weight : 74 kg MOO MATIAS RN - 09/29/2020 8:42 EST Health Histories Smoking Status : Never (less than 100 in lifetime; none in last 30 days) Smokeless Tobacco Status : Never Implant/Device Type, Marble Cleaner and Model : right hip replacement hardware in spine Jason Martinez Rn - 09/26/2020 9:25 EST Social History (As Of: 09/26/2020 09:29:38 EST) Tobacco: Never (less than 100 in lifetime) Smoking Status. Never Smokeless Tobacco Status. (Last Updated: 05/17/2018 08:42:07 EDT by MOO MATIAS RN) Alcohol: Alcohol Use History No. Use in Last 12 Months: No. (Last Updated: 09/26/2020 09:25:53 EST by Jason Martinez Rn) Substance Abuse: Drug Use Hx: No. Use in Last 12 Months: No. (Last Updated: 09/26/2020 09:25:53 EST by Jason Martinez, Luis Angel) Infectious Disease History Has the patient ever [...] Infectious Disease History : Chicken pox/Shingles Jason Mratinez Rn - 09/26/2020 9:26 EST COVID19 PreProcedure [...] Jason Martinez Rn - 09/26/2020 9:26 EST [place] Suicide Severity Rating Scale (C-SSRS) CSSRS Past [...] Arrival on Unit : Ambulatory Support Person/Patient Welding Machine Operator Helper Arc : Yes Support Person/Pt Rep Name : Hortencia Baez - Support Person/Pt Rep Contact Information : [phone] Want Family/Rep/Phys Notified of Admit : No Jason Martinez Rn - 09/26/2020 9:26 EST Emergency Contact #1 : `Hortencia Baez Emergency Contact #1 ` Emergency Contact #1 Relationship : spouse` MOO MATIAS RN - 09/29/2020 9:06 EST Emergency Contact #2 : ` Emergency Contact #2 Phone Number : ` Emergency Contact #2 Relationship : ` Information Obtained From : Patient Primary Language : Cambodian Preferred Communication Mode : Verbal Communication Barrier : None Coordinator Mining Products Needed : No Jason Martinez Rn - [...]
--- OUTSIDE RECORDS SUMMARY | 2025-05-30 08:26 | XMS_ITS | Clinical Summary ---
Author Organization [employer] Address [address] [place] [address] Phone [email or web address] Care Team Providers Care Binitrotoluene Operator Name Role Phone Unavailable Primary Care Provider Unavailabl e Allergies No known active allergies Medications atorvastatin (LIPITOR) 40 MG tablet 05/24/2018 Active ergocalciferol (VITAMIN D2) 26533 units capsule 05/24/2018 Activ e LIPOFEN 150 [...] ssis Immunization (1 - Tdap) 1976 Pneumococcal: 50+ Years (1 o f 1 - PCV) [...]
--- OUTSIDE RECORDS SUMMARY | 2025-05-30 08:26 | XMS_ITS | Encounter Summary ---
Author Organization [employer] ([place], [place], [place], [place], [place]) Address [address] [place] [address] Care Team Providers Care Skidder Driver Name Role Phone Unavailable Primary Care Provider Unavailabl e Encounter Details Date Type Department Care Team (Late st Contact Info) Description 10/01/2020 Transcribed Document [facility] Neurology - [facility] [address] [facility] [address] [place] [address] Junior Kirk MD [address] [facility] [address] [place] [address] Social History Tobacco Use Types [...] Problems Stented coronary artery / SNOMED CT 0985669029 / Confirmed Sleep apnea / SNOMED CT 265150768 / Confirmed Hyperlipidemia / SNOMED CT 69746031 / Confirmed History of obstructive sleep apnea / IMO 47894300 / Confirmed Diabetes mellitus type II / SNOMED CT 61912578 / Confirmed Coronary artery disease / SNOMED CT 7757755607 / Confirmed Back pain / SNOMED CT 577568882 / Confirmed Avascular necrosis / SNOMED CT 0683911482 / Confirmed Allergic rhinitis / SNOMED CT 617157576 / Confirmed, Active Problems (9) Allergic rhinitis [...] finger tendon. CP3 x2. Cholecystectomy. Tonsillectomy. Colonoscopy (417729666). wisdom teeth removal. right hip replacement. Social [...] ROM neck, RUE weakness. Integumentary: Warm, Dry, [place]. Neurologic: Alert, Oriented. Psychiatric: Cooperative, Appropriate mood [...]
--- OUTSIDE RECORDS SUMMARY | 2025-05-30 08:27 | XMS_ITS | Encounter Summary ---
Author Organization [employer] ([place], [place], [place], [place], [place]) Address [address] [place] [address] Care Team Providers Care Formal Waiter/Waitress Name Role Phone Unavailable Primary Care Provider Unavailabl e Encounter Details Date Type Department Care Team (Late st Contact Info) Description 10/02/2020 Transcribed Document [facility] [place] Family Medicine [facility] [place] [address] ProviderSharee MD [address] [place], [place] [id number] Social History Tobacco Use Types Packs/Day Years Used Date Smoking Tobacco: Never Assessed Sex and Gender Information Value Date Recorded Sex Assigned at Not on file Legal Sex Male 4:43 PM CDT Gender Identity Not on file Sexual Orientation Not on file documented as of this encounter Miscellaneous Notes * Cerner Conversion Note - Historical ProviderMD - 10/02/2020 12:15 PM BUSINESS CONTINUITY PLANNER UM Authorization Entered On: 10/02/2020 12:15 EST Performed On: 10/02/2020 12:15 EST by Stacy Bellamy Rn-Utilization Review Primary Insurance Authorization Authorization and Policy Numbers : Insurance 1 Health Plan: [facility] Policy Number: [id number] Authorization Number: [id number] Insurance Primary Name : Cash [id number] Authorization Number-Primary : OUT PT Auth# [id number] Authorized Service Begin Date-Primary : 10/01/2020 EST Historical Authorization Comments-Primary : Comment 1: pt is [facility] for OUT PT Cervical discectomy Fusion Anterior Hardware Removal Spone on 10-01-20 [place] OP Auth# [id number] (LUCY ALEMAN, Forest Fire Control Officer 09/30/2020 13:14) Josesito, Stacy L, Rn-Utilization Review - 10/02/2020 12:15 EST Electronically signed by Interface, [facility] Conversion Braider Setter Cerner at 11/11/2022 11:33 AM CDT documented in this encounter Plan of Treatment Not on file documented as of this encounter Visit Diagnoses Not on filedocumented in this encounter
--- OUTSIDE RECORDS SUMMARY | 2025-05-30 08:27 | XMS_ITS | Encounter Summary ---
Author Organization [employer] ([place], [place], [place], [place], [place]) Address [address] [place] [address] Care Team Providers Care Director Of Women'S Services Name Role Phone Unavailable Primary Care Provider Unavailabl e Encounter Details Date Type Department Care Team (Late st Contact Info) Description 10/02/2020 Transcribed Document [facility] [place] Medicine [facility] [place] [address] ProviderSharee MD [address] [place], [place] [address] Social History Tobacco Use Types Packs/Day Years Used Date Smoking Tobacco: Never Assessed Sex and Gender Information Value Date Recorded Sex Assigned at Not on file Legal Sex Male 4:43 PM CDT Gender Identity Not on file Sexual Orientation Not on file documented as of this encounter Miscellaneous Notes * Cerner Conversion Note - Historical ProviderMD - 10/02/2020 1:16 PM EMERGENCY MANAGEMENT SYSTEM DIRECTOR Discharge Summary, PT Entered On: 10/02/2020 13:19 EST Performed On: 10/02/2020 13:16 EST by GIO MONTIEL, PT Discharge Summary Reason for Discharge : Discharge order Discharged to, Therapy : Home, with family care Discharge Equipment, PT : None Discharge Summary Comment, PT : The patient was seen for PT evaluation but ordered for discharge before any further PT services were rendered. GIO MONTIEL, PT - 10/02/2020 13:16 EST Surveillance Investigator Goals Mobility/Bed Mobility LTG PT Grid [...] GIO MONTIEL, PT - 10/02/2020 13:16 EST Stairs LTG Grid Goal #1 Device : None Number of Steps : 1 Assist : Independent, complete Date to Meet : 10/15/2020 EDT Goal Status : Not met GIO MONTIEL, PT - 10/02/2020 13:16 EST Electronically signed by Enedina, [facility] Conversion Video Production Assistant Cerner at 11/11/2022 11:35 AM CDT documented in this encounter Plan of Treatment Not on file documented as of this encounter Visit Diagnoses Not on filedocumented in this encounter
--- OUTSIDE RECORDS SUMMARY | 2025-05-30 08:27 | XMS_ITS | Encounter Summary ---
Author Organization [employer] ([place], [place], [place], [place], [place]) Address [address] [place] [address] Care Team Providers Care Secured Entrance Monitor Name Role Phone Unavailable Primary Care Provider Unavailabl e Encounter Details Date Type Department Care Team (Late st Contact Info) Description 10/02/2020 Transcribed Document [facility] [place] Family Medicine [facility] [place] [address] ProviderSharee MD [address] [place], [place] [phone] Social History Tobacco Use Types Packs/Day Years Used Date Smoking Tobacco: Never Assessed Sex and Gender Information Value Date Recorded Sex Assigned at Not on file Legal Sex Male 4:43 PM CDT Gender Identity Not on file Sexual Orientation Not on file documented as of this encounter Miscellaneous Notes * Cerner Conversion Note - Historical ProviderMD - 10/02/2020 9:15 AM GRADUATE SCHOOL DEAN Stroke/Warfarin Instructions Entered On: 10/02/2020 9:15 EST Performed On: 10/02/2020 9:15 EST by YOSSI FRY RN Stroke/Warfarin Instructions Stroke/TIA Discharge Ins : N/A Warfarin Discharge Ins : N/A YOSSI FRY RN - 10/02/2020 9:15 EST documented in this encounter Plan of Treatment Not on file documented as of this encounter Visit Diagnoses Not on filedocumented in this encounter
--- OUTSIDE RECORDS SUMMARY | 2025-05-30 08:27 | XMS_ITS | Encounter Summary ---
Author Organization [employer] ([place], [place], [place], [place], [place]) Address [address] [place] [address] Care Team Providers Care Food And Beverage Controller Name Role Phone Unavailable Primary Care Provider Unavailabl e Encounter Details Date Type Department Care Team (Late st Contact Info) Description 10/02/2020 Transcribed Document [facility] [place] Family Medicine [facility] [place] [address] ProviderSharee MD [address] [place], [place] [phone] Social History Tobacco Use Types Packs/Day Years Used Date Smoking Tobacco: Never Assessed Sex and Gender Information Value Date Recorded Sex Assigned at Not on file Legal Sex Male 4:43 PM CDT Gender Identity Not on file Sexual Orientation Not on file documented as of this encounter Miscellaneous Notes * Cerner Conversion Note - Sharee Dewitt MD - 10/02/2020 12:07 PM INDUSTRIAL CHEMISTRY TEACHER Patient Education Materials Follows: Anterior Cervical [...] and water are not available, use hand derrick barge operator. ? Change your dressing as told by [...] Managing pain, stiffness, and swelling ??? Take kieg-ylm-dqrvvuq and prescription medicines only as told by [...] keep your urine pale yellow. ? Take bsrt-gsp-rijnosp or prescription medicines. ? Eat foods that [...] 08/06/2016 Document Revised: 04/05/2019 Document Reviewed: 04/05/2019 [employer] Patient Education ? 2020 [employer]. documented in this encounter Plan of Treatment Not on file documented as of this encounter Visit Diagnoses Not on filedocumented in this encounter
--- OUTSIDE RECORDS SUMMARY | 2025-05-30 08:27 | XMS_ITS | Encounter Summary ---
Author Organization [employer] ([place], [place], [place], [place], [place]) Address [address] [place] [address] Care Team Providers Care Dental Treatment Coordinator Name Role Phone Unavailable Primary Care Provider Unavailabl e Encounter Details Date Type Department Care Team (Late st Contact Info) Description 03/09/2019 Transcribed Document [facility] Cardiology [address] [place] [phone] Edvin Hollis MD [address] [facility] [address] [place] [address] Social History Tobacco Use Types [...]
--- OUTSIDE RECORDS SUMMARY | 2025-05-30 08:27 | XMS_ITS | Encounter Summary ---
Author Organization [employer] ([place], [place], [place], [place], [place]) Address [address] [place] [address] Care Team Providers Care Shading Painter Name Role Phone Unavailable Primary Care Provider Unavailabl e Encounter Details Date Type Department Care Team (Late st Contact Info) Description 10/02/2020 Transcribed Document [facility] [facility] [place] [address] Sharee Dewitt MD [address] [place], [place] [address] Social History Tobacco Use Types Packs/Day Years Used Date Smoking Tobacco: Never Assessed Sex and Gender Information Value Date Recorded Sex Assigned at Not on file Legal Sex Male 4:43 PM CDT Gender Identity Not on file Sexual Orientation Not on file documented as of this encounter Miscellaneous Notes * [employer]ner Conversion Note - Sharee ProviderMD - 10/02/2020 1:57 PM RADIO BOARD OPERATOR ANNOUNCER Final Discharge Planning Entered On: 10/02/2020 13:58 EST Performed On: 10/02/2020 13:57 EST by GERMAN HAILE RN-Contract Mail Carrier Final Discharge Planning Discharge Arrangements : Patient [...] Home/Residential/Usp or Self Care -01 GERMAN HAILE RN-Contract Mail Carrier - 10/02/2020 13:57 EST documented in this encounter Plan of Treatment Not on file documented as of this encounter Visit Diagnoses Not on filedocumented in this encounter
--- OUTSIDE RECORDS SUMMARY | 2025-05-30 08:27 | XMS_ITS | Encounter Summary ---
Author Organization [employer] ([place], [place], [place], [place], [place]) Address [address] [place] [address] Care Team Providers Care Certified Nutritionist Name Role Phone Unavailable Primary Care Provider Unavailabl e Encounter Details Date Type Department Care Team (Late st Contact Info) Description 10/02/2020 Transcribed Document [facility] [place] Family Medicine [facility] [place] [address] ProviderSharee MD [address] [place], [place] [phone] Social History Tobacco Use Types Packs/Day Years Used Date Smoking Tobacco: Never Assessed Sex and Gender Information Value Date Recorded Sex Assigned at Not on file Legal Sex Male 4:43 PM CDT Gender Identity Not on file Sexual Orientation Not on file documented as of this encounter Miscellaneous Notes * [employer]ner Conversion Note - Historical ProviderMD - 10/02/2020 1:39 PM MIDDLE SCHOOL TUTOR Nursing Discharge Summary Entered On: 10/02/2020 13:40 EST Performed On: 10/02/2020 13:39 EST by YAYO SCHAFFER office clerk routine Documentation Discharge Date/Time : 10/02/2020 13:30 EST [...] - 10/02/2020 13:39 EST Electronically signed by Enedina [facility] Conversion Automotive Alignment Specialist Cerner at 11/11/2022 11:37 AM CDT documented in this encounter Plan of Treatment Not on file documented as of this encounter Visit Diagnoses Not on filedocumented in this encounter
--- OUTSIDE RECORDS SUMMARY | 2025-05-30 08:28 | XMS_ITS | Encounter Summary ---
Author Organization [employer] ([place], [place], [place], [place], [place]) Address [address] [place] [address] Care Team Providers Care Corporate Sales Trainer Name Role Phone Unavailable Primary Care Provider Unavailabl e Encounter Details Date Type Department Care Team (Late st Contact Info) Description 10/02/2020 Transcribed Document [facility] [place] [facility] [place] [address] ProviderSharee MD [address], [place] [id number] Social History Tobacco Use Types Packs/Day Years Used Date Smoking Tobacco: Never Assessed Sex and Gender Information Value Date Recorded Sex Assigned at Not on file Legal Sex Male 4:43 PM CDT Gender Identity Not on file Sexual Orientation Not on file documented as of this encounter Miscellaneous Notes * Cerner Conversion Note - Sharee ProviderMD - 10/02/2020 1:55 PM APPLIQUE SEWER Initial Discharge Planning Entered On: 10/02/2020 13:57 EST Performed On: 10/02/2020 13:55 EST by GERMAN HAILE RN-Production Machinist Initial Assessment I Previously Documented Living Environment [...] have PCP Listed? : Yes GERMAN HAILE RN-Production Machinist - 10/02/2020 13:55 EST Initial Assessment II Sensory and Motor Deficits : None Does the Patient have a Floor to SNF Benefit? : No GERMAN HAILE RN-Production Machinist - 10/02/2020 13:55 EST Discharge Needs I Anticipated Discharge Date : 10/02/2020 EST Anticipated Discharge To, CM : Home with family care Current Home Treatment/Equipment : Current Home Treatment/Equipment No qualifying data available. Post Acute/Home Treatments : None Documentation Status Complete : Yes GERMAN HAILE RN-Production Machinist - 10/02/2020 13:55 EST Discharge Needs II Professional Skilled Services : Professional Skilled Services No qualifying data available. Needs Assistance with Transportation : No GERMAN HAILE RN-Production Machinist - 10/02/2020 13:55 EST Narrative Note Narrative Note : 65yo male pt s/p C3-5 ACDF. Pt ambulated 120ft with therapy yesterday and has been ambulating in halls independently today. No CM needs noted. Pt dc'd home with family. GERMAN HAILE RN-Production Machinist - 10/02/2020 13:55 EST documented in this encounter Plan of Treatment Not on file documented as of this encounter Visit Diagnoses Not on filedocumented in this encounter
--- OUTSIDE RECORDS SUMMARY | 2025-05-30 08:28 | XMS_ITS | Encounter Summary ---
Author Organization [employer] ([place], [place], [place], [place], [place]) Address [address] [place] [address] Care Team Providers Care Aquaculturist Name Role Phone Unavailable Primary Care Provider Unavailabl e Encounter Details Date Type Department Care Team (Late st Contact Info) Description 10/02/2020 Transcribed Document [facility] Neurology - [facility] [address] [facility] [address] [place] [address] Junior Kirk MD [address] [facility] [address] [place] [address] Social History Tobacco Use Types [...]
[2025-05-30 08:51] LABS: Hematocrit 41.9 % (42.0-52.0); Hemoglobin 14.1 g/dL (14.1-18.0); Immature Granulocytes % 0.3 %; Mean Corpuscular HGB Conc 33.7 g/dL (31.8-35.4); Mean Corpuscular Hemoglobin 30.7 pg (27.0-31.2); Mean Corpuscular Volume 91.1 fl (80-94); Nucleated Red Blood Cells % 0 %; Platelet Count 326 K/mm3 (142-424); Red Blood Count 4.60 M/mm3 (4.60-6.20); Red Cell Distribution Width-SD 43.5 fL; White Blood Count 7.0 K/mm3 (4.8-10.8)
[2025-05-30 09:08] LABS: Alanine Aminotransferase 28 U/L (12-78); Albumin Level 4.1 g/dl (3.5-5.0); Albumin/Globulin Ratio 1.6 (1.1-1.8); Alkaline Phosphatase 68 U/L (38-126); Anion Gap 10.0 mEq/L (5-15); Aspartate Amino Transferase 26 U/L (17-59); Bilirubin,Total 1.8 mg/dl (0.2-1.3); Blood Urea Nitrogen 11 mg/dl (9-20); Calcium 9.1 mg/dl (8.4-10.2); Carbon Dioxide 25 mmol/L (22.0-30.0); Chloride 103 mmol/L (98-107); Cholesterol 128 mg/dl (140-200); Creatinine,Serum 0.70 mg/dl (0.66-1.25); Estimated Glomerular Filt Rate 112 ml/min (>60); GFR (African American) 136 ML/MIN (>60); Globulin 2.5 g/dL (1.3-3.2); Glucose 146 mg/dl (74-100); HDL Cholesterol 43 mg/dl (40-60); Potassium 4.0 mmoL/L (3.5-5.1); Sodium 134 mmol/L (136-145); Total Protein,Serum 6.6 g/dl (6.3-8.2); Triglycerides 160 mg/dl (30-150)
[2025-05-30 09:25] LABS: 25-OH Vitamin D, Total 31.4 ng/mL (30-100)
[2025-05-30 09:38] LABS: Thyroid Stimulating Hormone 3.25 uIU/mL (0.465-4.68)
[2025-05-30 10:07] LABS: Hemoglobin A1C 7.0 % (4.0-6.0)
== END 2025-05-30 23:59 | disposition home or self-care (01) ==
LOC: LAB 08:23
PROVIDERS: PCP Internal Medicine Adolescent Medicine; Visit Provider Nurse Practitioner Family
DX: E55.9 Vitamin D deficiency, unspecified (principal); E11.59 Type 2 diabetes mellitus with other circulatory complications; E78.5 Hyperlipidemia, unspecified; E03.9 Hypothyroidism, unspecified; I25.10 Atherosclerotic heart disease of native coronary artery without angina pectoris
CPT/HCPCS: 36415; 80053; 80061; 82306; 83036; 84443; 85025